=== PATIENT | male | born 1955 | race American Indian/Alaskan Native ===

== ENCOUNTER 2023-12-09 11:05 | Emergency (ER) | payer MEDICAID ==
[~2023-12-09] VITALS: Ht 170.2 cm; Wt 80.4 kg
[2023-12-09 11:08] VITALS: BP 142/75; PULSE 87; RESP 16; TEMP 98.3; O2SAT 99
[2023-12-09] MEDS ORDERED: tetanus & diphtheria toxoid (Td) vaccine 0.5ml IMVAC ONE (11:35)
[2023-12-09] MEDS: TETanus/Pertussis (Acell)/Diphther VAC/PF (Tdap-Adult) 0.5ml syringe IMVAC ONE (11:49)
== END 2023-12-09 11:58 | disposition home or self-care (01) ==
LOC: ER 11:05
DX: T23.221A Burn of second degree of single right finger (nail) except thumb, initial encounter (principal); Z88.0 Allergy status to penicillin; X08.8XXA Exposure to other specified smoke, fire and flames, initial encounter; Y93.89 Activity, other specified; Y92.89 Other specified places as the place of occurrence of the external cause; Y99.8 Other external cause status
CPT/HCPCS: 90471; 90715; 99283

== ENCOUNTER 2023-12-23 10:24 | Emergency (ER) | payer MEDICAID ==
[~2023-12-23] VITALS: Ht 167.6 cm; Wt 80.5 kg
[2023-12-23 10:58] VITALS: BP 134/95; PULSE 104; O2SAT 98
[2023-12-23] MEDS ORDERED: IBUP-1984 PO (11:25)
[2023-12-23] MEDS ORDERED: PRED20TA PO (11:25)
[2023-12-23 11:31] VITALS: RESP 14
[2023-12-23] MEDS: oxyCODONE/APAP 5-325mg tablet PO ONE (11:31)
[2023-12-23 11:44] VITALS: TEMP 97.8
== END 2023-12-23 11:47 | disposition home or self-care (01) ==
LOC: ER 10:26
DX: R07.89 Other chest pain (principal); Z88.0 Allergy status to penicillin; Z79.899 Other long term (current) drug therapy
CPT/HCPCS: 99283

== ENCOUNTER 2024-01-07 10:08 | Emergency (ER) | payer MEDICAID ==
[~2024-01-07] VITALS: Ht 170.2 cm; Wt 78.0 kg
[2024-01-07 10:17] VITALS: TEMP 96.6
[2024-01-07 10:55] LABS: BASOPHILS # (AUTO) 0.1 X10'3 (0-0.2); BASOPHILS % (AUTO) 0.8 % (0-1); EOSINOPHILS # (AUTO) 0.4 X10'3 (0-0.9); HEMATOCRIT 46.8 % (42.0-52.0); HEMOGLOBIN 16.5 g/dl (14.0-17.9); LYMPHOCYTES # (AUTO) 2.1 X10'3 (1.1-4.8); LYMPHOCYTES % (AUTO) 19.4 % (21-51); MEAN CORPUSCULAR HEMOGLOBIN 29.3 PG (27.0-31.0); MEAN CORPUSCULAR HGB CONC 35.2 g/dL (33.0-36.5); MEAN CORPUSCULAR VOLUME 83.4 FL (78-98); MEAN PLATELET VOLUME 7.9 FL (7.4-10.4); MONOCYTES # (AUTO) 0.6 X10'3 (0-0.9); MONOCYTES % (AUTO) 5.6 % (2-12); NEUTROPHILS # (AUTO) 7.6 X10'3 (1.8-7.7); NEUTROPHILS % (AUTO) 70.2 % (42-75); PLATELET COUNT 288 X10'3 (140-440); RED BLOOD COUNT 5.62 X10'6 (4.70-6.10); RED CELL DISTRIBUTION WIDTH 13.8 % (11.5-14.5); WHITE BLOOD COUNT 10.8 X10'3 (4.5-11.0)
[2024-01-07 11:15] LABS: ALANINE AMINOTRANSFERASE 25 U/L (12-78); ALBUMIN 3.3 G/DL (3.4-5.0); ALBUMIN/GLOBULIN RATIO 0.8 (1.1-1.5); ALKALINE PHOSPHATASE 92 IU/L (46-116); ANION GAP 14 (8-16); ASPARTATE AMINO TRANSFERASE 18 U/L (10-37); BILIRUBIN,TOTAL 0.8 MG/DL (0.1-1.0); BLOOD UREA NITROGEN 14 MG/DL (7-18); BUN/CREATININE RATIO 13.9 (10.0-20.0); CALCIUM 8.3 MG/DL (8.5-10.1); CHLORIDE 103 MMOL/L (99-107); CREATININE 1.01 MG/DL (0.60-1.10); GLUCOSE 118 MG/DL (70-104); POTASSIUM 3.9 MMOL/L (3.5-5.1); SODIUM 138 MMOL/L (135-145); TOTAL CARBON DIOXIDE 21.4 MMOL/L (24-32); TOTAL PROTEIN 7.2 G/DL (6.4-8.2); eCRCL 67 ML/MIN; eGFR 74 ML/MIN
[2024-01-07 11:22] LABS: PRO BRAIN NATRIURETIC PEPTIDE 79 PG/ML (0-125)
[2024-01-07 13:27] VITALS: BP 147/73; PULSE 62; RESP 21; O2SAT 100
[2024-01-07] MEDS ORDERED: OMEP40CA21 PO (13:34)
== END 2024-01-07 18:33 | disposition home or self-care (01) ==
LOC: ER 10:09
DX: R07.89 Other chest pain (principal); F17.210 Nicotine dependence, cigarettes, uncomplicated; Z88.0 Allergy status to penicillin; Z79.899 Other long term (current) drug therapy
CPT/HCPCS: 36415; 80053; 83880; 84484; 85025; 93005; 99284

== ENCOUNTER 2024-05-05 07:42 | Emergency (ER) | payer MEDICARE, MEDICAID ==
[~2024-05-05] VITALS: Ht 167.6 cm; Wt 81.5 kg
[2024-05-05 07:43] VITALS: TEMP 98
[2024-05-05] MEDS: naproxen 500mg tablet PO ONE (08:19)
[2024-05-05] MEDS: traMADol 50MG tablet PO ONE (08:19)
[2024-05-05 08:20] VITALS: BP 145/85; PULSE 75; RESP 16; O2SAT 98
[2024-05-05] MEDS ORDERED: NAPR-56 PO (08:20)
== END 2024-05-05 08:22 | disposition home or self-care (01) ==
LOC: ER 07:42
DX: R07.89 Other chest pain (principal); Z88.0 Allergy status to penicillin; Z79.1 Long term (current) use of non-steroidal anti-inflammatories (NSAID)
CPT/HCPCS: 71045; 99283

== ENCOUNTER 2024-06-14 11:50 | Emergency (ER) | payer MEDICARE, MEDICAID ==
[~2024-06-14] VITALS: Ht 170.2 cm; Wt 79.3 kg
[2024-06-14 12:40] VITALS: BP 146/88; PULSE 92; RESP 18; TEMP 98.9; O2SAT 99
== END 2024-06-14 12:41 | disposition home or self-care (01) ==
LOC: ER 11:50
DX: F10.10 Alcohol abuse, uncomplicated (principal); Z88.0 Allergy status to penicillin; Y90.9 Presence of alcohol in blood, level not specified
CPT/HCPCS: 99281

== ENCOUNTER 2024-06-19 15:26 | Emergency (ER) | payer MEDICARE, MEDICAID ==
[~2024-06-19] VITALS: Ht 170.2 cm; Wt 81.8 kg
[2024-06-19] MEDS ORDERED: LIDO700A32 TOP (17:51)
[2024-06-19] MEDS ORDERED: PRED20TA PO (17:51)
[2024-06-19] MEDS: ketorolac trometh 30MG/ML vial 30 MG/ML VIAL IM ONE (18:07)
[2024-06-19] MEDS: cyclobenzaprine 10mg tablet PO ONE (18:07)
[2024-06-19] MEDS: dexamethasone sod phosphate 10mg/ml inj IM STA (18:08)
[2024-06-19 18:20] VITALS: BP 164/77; PULSE 54; RESP 16; TEMP 98.7; O2SAT 99
== END 2024-06-19 18:22 | disposition home or self-care (01) ==
LOC: ER 15:27
DX: M54.2 Cervicalgia (principal); Z88.0 Allergy status to penicillin
CPT/HCPCS: 72040; 96372; 99284; J1100; J1885

== ENCOUNTER 2024-06-29 10:23 | Emergency (ER) | payer MEDICARE, MEDICAID ==
[~2024-06-29] VITALS: Ht 170.2 cm; Wt 74.0 kg
[~2024-06-29 10:23] MED LIST: LIDO700A32 TOP
[2024-06-29 12:15] VITALS: TEMP 97.4
[2024-06-29] MEDS: acetaminophen 325mg tablet PO STA (13:25)
[2024-06-29 13:26] VITALS: BP 151/88; PULSE 68; RESP 16; O2SAT 99
== END 2024-06-29 13:46 | disposition home or self-care (01) ==
LOC: ER 10:23
DX: M54.2 Cervicalgia (principal); M25.572 Pain in left ankle and joints of left foot; Z88.0 Allergy status to penicillin; Z79.899 Other long term (current) drug therapy; W01.0XXA Fall on same level from slipping, tripping and stumbling without subsequent striking against object, initial encounter; Y93.89 Activity, other specified; Y92.89 Other specified places as the place of occurrence of the external cause; Y99.8 Other external cause status
CPT/HCPCS: 72040; 73610; 99284

== ENCOUNTER 2024-10-22 04:03 | Emergency (ER) | payer MEDICARE, MEDICAID ==
[~2024-10-22] VITALS: Ht 167.6 cm; Wt 83.8 kg
[2024-10-22 04:04] VITALS: BP 155/81; PULSE 93; O2SAT 98
[2024-10-22 05:58] VITALS: TEMP 97.9
[2024-10-22 06:02] VITALS: RESP 17
[2024-10-22] MEDS: ketorolac trometh 30MG/ML vial 30 MG/ML VIAL IM ONE (06:02)
== END 2024-10-22 06:05 | disposition home or self-care (01) ==
LOC: ER 04:04
DX: M13.88 Other specified arthritis, other site (principal); G89.29 Other chronic pain; M79.605 Pain in left leg; Z88.0 Allergy status to penicillin; Z79.899 Other long term (current) drug therapy
CPT/HCPCS: 96372; 99283; J1885

== ENCOUNTER 2024-11-02 13:10 | Emergency (ER) | payer MEDICARE, MEDICAID ==
[~2024-11-02] VITALS: Ht 167.6 cm; Wt 64.3 kg
[2024-11-02 15:36] VITALS: BP 143/74; PULSE 74; RESP 16; TEMP 97.9; O2SAT 97
== END 2024-11-02 15:37 | disposition home or self-care (01) ==
LOC: ER 13:11
DX: R06.02 Shortness of breath (principal); Z88.0 Allergy status to penicillin; Z79.899 Other long term (current) drug therapy
CPT/HCPCS: 71045; 99283

== ENCOUNTER 2024-11-30 11:55 | Emergency (ER) | payer MEDICARE, MEDICAID ==
[~2024-11-30] VITALS: Ht 167.6 cm; Wt 80.8 kg
[2024-11-30 11:58] VITALS: BP 147/83; PULSE 88; RESP 18; TEMP 97.5; O2SAT 100
== END 2024-11-30 12:13 | disposition home or self-care (01) ==
LOC: ER 11:56
DX: Z00.8 Encounter for other general examination (principal); F15.10 Other stimulant abuse, uncomplicated; Z88.0 Allergy status to penicillin; Z98.890 Other specified postprocedural states
CPT/HCPCS: 99281

== ENCOUNTER 2024-12-23 09:01 | Emergency (ER) | payer MEDICARE, MEDICAID ==
[~2024-12-23] VITALS: Ht 167.6 cm; Wt 76.7 kg
[2024-12-23 09:01] VITALS: BP 147/84; PULSE 93; RESP 16; O2SAT 99
[2024-12-23 09:39] VITALS: TEMP 98.3
== END 2024-12-23 09:41 | disposition home or self-care (01) ==
LOC: ER 09:01
DX: H04.201 Unspecified epiphora, right side (principal); Z88.0 Allergy status to penicillin
CPT/HCPCS: 99281

== ENCOUNTER 2025-02-20 10:23 | Emergency (ER) | payer MEDICARE, MEDICAID ==
[~2025-02-20] VITALS: Ht 167.6 cm; Wt 56.3 kg
[~2025-02-20 10:23] MED LIST changes: +LIDO-52 TOP; -LIDO700A32 TOP
[2025-02-20 10:26] VITALS: BP 95/66; PULSE 78; RESP 18; O2SAT 99
--- NOTE | 2025-02-20 11:50 | Physician Documentation ---
History of Present Illness ~ Chief Complaint: Penile Pain Stated Complaint: PENILE PAIN Time Seen by MD: 10:43 Primary Medical Doctor: NO PMD HPI Patient presents with a foreign metal ring which was stuck on his shaft of his penis..pt states that it is a "colvin ring". said his girlfriend "made him do it".ring has been stuck on his penis for one day Medication Reconciliation Allergies: Coded Allergies: Penicillins (Verified Allergy, Unknown, 11/30/24) Scheduled Lidocaine (Lidoderm), 1 PATCH TOP DAILY Past Medical History Past Medical History: No Pertinent History, Arthritis, Extremity Fracture Past Surgical History: orthopedic surgeries Drug Use: none Lives In: Home, Other Review of Systems All Other Systems at this time: Reviewed and Negative ROS As stated above in the HPI, otherwise all systems are reviewed and negative. Physical Exam Vital Signs: Temperature: 98.2, Source: Temporal, Heart Rate: 78, Respiratory Rate: 18, BP: 95/66, Pulse Oximetry: 99, Weight: 56.300 Physical Exam General: Alert, no apparent distress. HEENT: PERRL, EOMI, no injection, moist mucous membranes. Genitourinary: Caring partially strangulating the penile shaft with gross swelling distal to the ring Psychiatric: Normal mood and affect. Skin: Normal color, warm and dry. No edema, no ecchymosis. Procedures Additional Procedures Additional Procedure Note Utilizing double tongue depressor lubrication and a Dremel tool. Progress Results/Orders Results/Orders Vital Signs 02/20/25 02/20/25 10:26 12:13 Temp 98.2 98.2 Pulse 78 Resp 18 B/P (MAP) 95/66 Pulse Ox 99 Medical Decision Making Findings Utilizing lubrication tongue depressor and a Dremel tool, was able to easily rem ove the colvin ring that was at the base of the patient's from the penis. improved symptoms and meets criteria for safe discharge Genital Diff Dx:Considerations: Include: Abscess, Balanitis, Balanoposthitis, Cellulitis, Epididymitis, Entrapment injury, Glynn's gangrene, Foreign body, Facture penis, Hydrocele, Inguinal hernia, Post-op Complication, Paraphimosis, Prostatitis, Priapism, Syphilis, Testicular torsion, Torsion-epididymis, Torsion-appendiceal, Urinary retention, Urethritis, Urethritis-chlamydial, Urethritis-gonococcal, UTI, Other Departure Disposition: HOME / SELF CARE / HOMELESS Impression: Primary Impression: Penile FB Condition: Stable Additional Instructions: please stop Placing foreign bodies on your penis causing strangulation. Referrals: NO PRIMARY CARE PROVIDER (PCP) Education Educated: Patient Educated regarding: diagnosis Signature Scribe Signature: f Attestation: The note accurately reflects work and decisions made by me.Parth Smith NP 02/20/25 18:04 PARTH TREVIZO NP Feb 20, 2025 11:50
[2025-02-20 12:13] VITALS: TEMP 98.2
== END 2025-02-20 12:16 | disposition home or self-care (01) ==
LOC: ER 10:24
DX: T19.4XXA Foreign body in penis, initial encounter (principal); Z88.0 Allergy status to penicillin; W44.9XXA Unspecified foreign body entering into or through a natural orifice, initial encounter; Y93.89 Activity, other specified; Y92.89 Other specified places as the place of occurrence of the external cause; Y99.8 Other external cause status
CPT/HCPCS: 99284

== ENCOUNTER 2025-03-09 03:14 | Emergency (ER) | payer MEDICARE, MEDICAID ==
[~2025-03-09] VITALS: Ht 167.6 cm; Wt 72.8 kg
[2025-03-09 03:23] VITALS: BP 141/84; PULSE 72; RESP 16; TEMP 97.1; O2SAT 98
[2025-03-09] MEDS ORDERED: CEFU250T95 PO (03:52)
--- NOTE | 2025-03-09 03:52 | Physician Documentation ---
History of Present Illness ~ Chief Complaint: Ear Pain Stated Complaint: EAR PAIN Time Seen by MD: 03:37 Primary Medical Doctor: NO PMD HPI Patient presents to the emergency room with one day history of left ear pain. He states he went swimming last week and feels that he may have gone an earache. He also has some cough cold and congestion symptoms. No fevers Medication Reconciliation Allergies: Coded Allergies: Penicillins (Verified Allergy, Unknown, 03/09/25) Scheduled Lidocaine (Lidoderm), 1 PATCH TOP DAILY Past Medical History Past Medical History: No Pertinent History, Arthritis, Extremity Fracture Past Surgical History: orthopedic surgeries Drug Use: none Lives In: Home, Other Review of Systems ROS All review of systems negative except as per HPI Physical Exam Vital Signs: Temperature: 97.1, Source: Temporal, Heart Rate: 72, Respiratory Rate: 16, BP: 141/84, Pulse Oximetry: 98, Weight: 72.800 Oxygen Flow Rate: 0 Physical Exam General: Patient is awake, alert, oriented x4 in no acute distress and well appearing.~ Head: Normocephalic and atraumatic. Eyes: Conjunctival normal. EOMI. PERRL. ENT: Mucous membranes moist. Right tympanic brain normal, left tympanic membrane ruptured. No tenderness to palpation over mastoid processes Neck: Supple, trachea is midline. Chest: Clear to auscultation bilaterally without rales, rhonchi, or wheezes. There is no accessory muscle use or retractions. Cardiac: RRR without murmurs, gallops, or rubs. Progress Results/Orders Results/Orders Vital Signs 03/09/25 03:23 Temp 97.1 Pulse 72 Resp 16 B/P (MAP) 141/84 Pulse Ox 98 O2 Flow Rate 0 Medical Decision Making Findings Patient presents to the emergency room with left ear pain as per HPI. Differentials include but are not limited to otitis externa, otitis media, mastoiditis, foreign body. Physical exam is consistent with rupture of his membrane. The need to follow up with his doctor to ensure closure of his tympanic membrane discussed as well as the need to keep his head not submerged in water or get water in his ear. We will place him on antibiotic that should cover his cough cold congestion symptoms as well as his likely ear infection. Departure Disposition: HOME / SELF CARE / HOMELESS Impression: Primary Impression: Ruptured tympanic membrane Condition: Stable Discharge Instructions: Earache, Adult Additional Instructions: Your ear drum has been ruptured. Do not get water in your ear until you a followed up with your doctor to ensure that has healed correctly. We will begin antibiotics that will cover an infection of your ear that has well as sinuses Referrals: NO PRIMARY CARE PROVIDER (PCP) Prescriptions Cefuroxime Axetil (Cefuroxime) 250 Mg Tablet 1 TAB PO Q12H for 10 Days, #20 TAB Prov: RUSS JEONG MD 03/09/25 Education Educated: Patient Educated regarding: diagnosis, treatment, need for follow up Signature Scribe Signature: No scribe Attestation: The note accurately reflects work and decisions made by me.Russ Jeong MD 03/09/25 03:53 RUSS JEONG MD Mar 09, 2025 03:51
[2025-03-09] MEDS ORDERED: cefuroxime axetil 250mg tablet PO ONE (03:55)
[2025-03-09] MEDS ORDERED: ibuprofen tablet 400 MG TABLET PO ONE (03:55)
== END 2025-03-09 04:43 | disposition home or self-care (01) ==
LOC: ER 03:15
DX: H72.92 Unspecified perforation of tympanic membrane, left ear (principal); Z88.0 Allergy status to penicillin; Z79.899 Other long term (current) drug therapy
CPT/HCPCS: 99283

== ENCOUNTER 2025-03-30 08:28 | Emergency (ER) | payer MEDICARE, MEDICAID ==
[~2025-03-30] VITALS: Ht 167.6 cm; Wt 68.1 kg
[~2025-03-30 08:28] MED LIST changes: +ASPI81TA52 PO; +LEVO750T68 PO; +TAMS-55 PO
[2025-03-30] MEDS: bacitracin 15gm ointment TP ONE (09:14)
[2025-03-30] MEDS ORDERED: IBUP-860 PO (09:39)
--- NOTE | 2025-03-30 09:40 | Physician Documentation ---
History of Present Illness ~ Chief Complaint: Wound Stated Complaint: L LEG PAIN Time Seen by MD: 08:59 Primary Medical Doctor: NO PMD Source: patient Mode of Arrival: Ambulatory Exam Limitations: no limitations HPI 42-year-old male with wound to left reyez which he states he was treated for and is currently on antibiotics but does not have bandages and states that he is concerned it is getting infected. Patient is homeless. Fevers. Tetanus within 5 years?: Yes (2023) Medication Reconciliation Allergies: Coded Allergies: Penicillins (Verified Allergy, Unknown, 03/09/25) Scheduled Aspirin (Aspirin EC), 1 TAB PO DAILY Levofloxacin (Levofloxacin), 750 MG PO DAILY Lidocaine (Lidoderm), 1 PATCH TOP DAILY Tamsulosin Hcl* (Flomax*), 1 CAP PO DAILY, (Reported) Past Medical History Past Medical History: No Pertinent History, Arthritis, Extremity Fracture Past Surgical History: orthopedic surgeries Patient History: Patient reports no known family medical history. Drug Use: none Lives In: Home, Other Review of Systems All Other Systems at this time: Reviewed and Negative Integumentary: Reports: see HPI Physical Exam Vital Signs: RN Vital Signs have been reviewed: Yes, Temperature: 98.0, Source: Oral, Heart Rate: 68, Respiratory Rate: 16, BP: 125/63, Pulse Oximetry: 98, Weight: 68.100 Oxygen Flow Rate: 0 Physical Exam General: Alert, no apparent distress. HEENT: PERRL, EOMI, no injection, moist mucous membranes. Neck: Full range of motion. Respiratory: Lungs clear, no respiratory distress. Chest: No accessory muscle use. Cardiovascular: Regular rate and rhythm, no murmurs. Extremities: Normal range of motion, no deformity. 2 cm x 1-1/2 cm scabbed lesion to the left reyez some induration with out fluctuant warmth Neurologic: Oriented x4. Psychiatric: Normal mood and affect. Skin: Normal color, warm and dry. No edema, no ecchymosis. Progress Results/Orders Results/Orders Completed Orders - BEA SNOW NP Bacitracin Ointment (Bacitracin Ointment (03/30/25 09:05) Vital Signs 03/30/25 08:28 Temp 98.0 Pulse 68 Resp 16 B/P (MAP) 125/63 Pulse Ox 98 O2 Flow Rate 0 Medical Decision Making Findings And stages of healing although patient is homeless with lack of resources to care clean and cover the wound provided wound care patient continues to take his antibiotics no obvious increase infection. Patient to follow up with primary [facility] as needed Departure Time of Disposition: 09:37 Disposition: 01 HOME / SELF CARE / HOMELESS Impression: Primary Impression: Leg wound, left Condition: Stable Discharge Instructions: How to Change Your Wound Dressing Additional Instructions: Continue to take your antibiotic try to keep wound clean and dry change the bandage daily. Follow up with urgent care primary care [facility] Referrals: NO PRIMARY CARE PROVIDER (PCP) Prescriptions Ibuprofen (Ibu) 400 Mg Tablet 1 TAB PO Q4HPRN PRN for pain for 5 Days, #30 TAB 0 Refills NEEDED FOR PAIN Prov: BEA SNOW NP 03/30/25 Education Educated: Patient Educated regarding: diagnosis, treatment, need for follow up Signature Scribe Signature: No scribe Attestation: The note accurately reflects work and decisions made by me.Bea LYNCH 03/30/25 09:39 BEA SNOW NP Mar 30, 2025 09:40
[2025-03-30 09:49] VITALS: BP 122/64; PULSE 78; RESP 16; TEMP 98; O2SAT 99
[2025-04-04] MEDS ORDERED: NO HOME MEDS (13:25)
== END 2025-03-30 09:51 | disposition home or self-care (01) ==
LOC: ER 08:28
DX: S40.912A Unspecified superficial injury of left shoulder, initial encounter (principal); M75.82 Other shoulder lesions, left shoulder; Z88.0 Allergy status to penicillin; Z59.00 Homelessness unspecified; Z79.899 Other long term (current) drug therapy; X58.XXXA Exposure to other specified factors, initial encounter; Y93.89 Activity, other specified; Y92.89 Other specified places as the place of occurrence of the external cause; Y99.8 Other external cause status
CPT/HCPCS: 99283

== ENCOUNTER 2025-04-03 11:38 | Emergency (ER) | payer MEDICARE, MEDICAID ==
[~2025-04-03] VITALS: Ht 167.6 cm; Wt 68.2 kg
[~2025-04-03 11:38] MED LIST changes: +IBUP-860 PO; -LEVO750T68 PO
[2025-04-03 11:42] VITALS: BP 136/72; PULSE 78; RESP 18; O2SAT 98
[2025-04-03] MEDS ORDERED: CEPH-585 PO (12:35)
[2025-04-03] MEDS ORDERED: SULF1TAB45 PO (12:35)
--- NOTE | 2025-04-03 12:35 | Physician Documentation ---
History of Present Illness ~ Chief Complaint: Wound Stated Complaint: L LEG PAIN Time Seen by MD: 12:01 OK to notify your PCP?: No Primary Medical Doctor: NO PMD HPI 69-year-old male presents with a complaint of a poor healing wound on his left lower extremity. States she just needs something to clean the wound with. Has not any fevers nausea vomiting f. does report some trace drainage from the wound Tetanus within 5 years?: Yes (2023) Medication Reconciliation Allergies: Coded Allergies: Penicillins (Verified Allergy, Unknown, 03/09/25) Scheduled Aspirin (Aspirin EC), 1 TAB PO DAILY Cephalexin*Monohydrate* (Keflex*), 1 CAP PO QID Lidocaine (Lidoderm), 1 PATCH TOP DAILY Sulfamethoxazole/Trimethoprim (Septra Ds Tab), 1 TAB PO Q12H Tamsulosin Hcl* (Flomax*), 1 CAP PO DAILY, (Reported) Scheduled PRN Ibuprofen (Ibu), 1 TAB PO Q4HPRN PRN for pain Discontinued Medications Levofloxacin (Levofloxacin), 750 MG PO DAILY Discontinued Reason: Auto Discontinued Past Medical History Past Medical History: No Pertinent History, Arthritis, Extremity Fracture Past Surgical History: orthopedic surgeries Patient History: Patient reports no known family medical history. Smoking Status: Never smoker Drug Use: none Lives In: Home, Other Review of Systems All Other Systems at this time: Reviewed and Negative ROS As stated above in the HPI, otherwise all systems are reviewed and negative. Physical Exam Vital Signs: Temperature: 97.6, Source: Temporal, Heart Rate: 78, Respiratory Rate: 18, BP: 136/72, Pulse Oximetry: 98, Weight: 68.200 Physical Exam General: Alert, no apparent distress. Extremities: Normal range of motion, no deformity. 2 x 5 cm healing wound left lower extremity trace drainage, mild surrounding erythema Psychiatric: Normal mood and affect. Skin: Normal color, warm and dry. No edema, no ecchymosis. Progress Results/Orders Results/Orders Completed Orders - PARTH TREVIZO NP Sulfamethox/Trimetho. Ds Tab (Septra Ds (04/03/25 12:25) Cephalexin Capsule (Keflex Capsule) (04/03/25 12:25) Medications Received in ER Medications (Trade) Dose Ordered Sig/Dejon Route PRN Reason Start Time Stop Time Status Last Admin Dose Admin (Septra DS tab) 1 tab ONCE ONCE PO 7/22/25 12:25 04/03/25 12:26 DC 04/03/25 12:39 1 TAB (Keflex capsule) 500 mg ONCE ONCE PO 04/03/25 12:25 04/03/25 12:26 DC 04/03/25 12:39 500 MG Vital Signs 04/03/25 11:42 Temp 97.6 Pulse 78 Resp 18 B/P (MAP) 136/72 Pulse Ox 98 Medical Decision Making Findings Treating with outpatient antibiotics and provided patient wound care in the ED. patient hemodynamically stable Differential Dx:Considerations: Include: Abscess, Cellulitis, Dressing change, Healing wound, Other Departure Disposition: HOME / SELF CARE / HOMELESS Impression: Primary Impression: Wound cellulitis Condition: Stable Discharge Instructions: Skin Abscess Referrals: NO PRIMARY CARE PROVIDER (PCP) Prescriptions Cephalexin*Monohydrate* (Keflex*) 500 Mg Capsule 1 CAP PO QID, #40 CAP Prov: PARTH TREVIZO VALUATION MANAGER 04/03/25 Sulfamethoxazole/Trimethoprim (Septra Ds Tab) 800 Mg/160 Mg Tablet 1 TAB PO Q12H for 10 Days, #20 TAB Prov: PARTH TREVIZO VALUATION MANAGER 04/03/25 Education Educated: Patient Educated regarding: diagnosis Signature Scribe Signature: y Attestation: Scribed for Parth Trevizo Executive Compensation Analyst by Parth Smith NP . 04/03/25 12:41 PARTH TREVIZO NP Apr 03, 2025 12:35
[2025-04-03] MEDS: sulfamethoxazole/trimethoprim DS (800/160mg) tablet PO ONE (12:39)
[2025-04-03 12:58] VITALS: TEMP 97.6
[2025-04-04] MEDS ORDERED: NO HOME MEDS (13:25)
== END 2025-04-03 12:59 | disposition home or self-care (01) ==
LOC: ER 11:39
DX: L03.116 Cellulitis of left lower limb (principal); Z88.0 Allergy status to penicillin; Z79.82 Long term (current) use of aspirin
CPT/HCPCS: 99283

== ENCOUNTER 2025-04-08 06:36 | Emergency (ER) | payer MEDICARE, MEDICAID ==
[~2025-04-08] VITALS: Ht 167.6 cm; Wt 68.3 kg
[~2025-04-08 06:36] MED LIST changes: +CEPH-585 PO; +FOLI1TAB27 PO; +LACT1CAP26 PO; +MULT-25 PO; +NO HOME MEDS; +THIA100T70 PO
[2025-04-08 06:41] VITALS: TEMP 97
--- NOTE | 2025-04-08 07:47 | Physician Documentation ---
History of Present Illness ~ Chief Complaint: Wound Re-Check Stated Complaint: WOUND CARE Time Seen by MD: 07:44 Primary Medical Doctor: NO PMD Source: patient Mode of Arrival: Ambulatory Exam Limitations: no limitations Tetanus within 5 years?: Yes (2023) Medication Reconciliation Allergies: Coded Allergies: Penicillins (Verified Allergy, Unknown, 04/08/25) Scheduled Aspirin (Aspirin EC), 1 TAB PO DAILY Cephalexin*Monohydrate* (Keflex*), 1 CAP PO QID Folic Acid* (Folic Acid*), 1 MG PO DAILY Lactobacillus Rhamnosus (Culturelle), 1 CAP PO DAILY Lidocaine (Lidoderm), 1 PATCH TOP DAILY Multivitamin with Folic Acid (Thera Tablet), 1 EACH PO Q24H Tamsulosin Hcl* (Flomax*), 1 CAP PO DAILY, (Reported) Thiamine Mononitrate (Vitamin B-1), 1 TAB PO DAILY Scheduled PRN Ibuprofen (Ibu), 1 TAB PO Q4HPRN PRN for pain Miscellaneous Medications Home Med List (No Home Medications), (Reported) Discontinued Medications Sulfamethoxazole/Trimethoprim (Septra Ds Tab), 1 TAB PO Q12H Past Medical History Past Medical History: No Pertinent History, Arthritis, Extremity Fracture Past Surgical History: orthopedic surgeries Patient History: Patient reports no known family medical history. Smoking Status: Former smoker Drug Use: none Lives In: Other Physical Exam Vital Signs: Temperature: 97.0, Source: Temporal, Heart Rate: 68, Respiratory Rate: 16, BP: 128/77, Pulse Oximetry: 99, Weight: 68.300 Oxygen Flow Rate: 0 Progress Results/Orders Results/Orders Vital Signs 04/08/25 06:41 Temp 97.0 Pulse 68 Resp 16 B/P (MAP) 128/77 Pulse Ox 99 O2 Flow Rate 0 Departure Time of Disposition: 07:46 Disposition: 01 HOME / SELF CARE / HOMELESS Impression: Primary Impression: Healing wound left leg Condition: Stable Discharge Instructions: Wound Care, Adult Additional Instructions: KEEP THE WOUND CLEAN DRY AND COVERED Education Educated: Patient Educated regarding: diagnosis, treatment JASS VINES MD Apr 08, 2025 07:47
[2025-04-08 07:58] VITALS: BP 129/68; PULSE 57; RESP 18; O2SAT 100
== END 2025-04-08 08:00 | disposition home or self-care (01) ==
LOC: ER 06:37
DX: S80.922D Unspecified superficial injury of left lower leg, subsequent encounter (principal); Z88.0 Allergy status to penicillin; Z79.82 Long term (current) use of aspirin; Z79.899 Other long term (current) drug therapy; X58.XXXD Exposure to other specified factors, subsequent encounter
CPT/HCPCS: 99281

== ENCOUNTER 2025-04-08 12:47 | Emergency (ER) | payer MEDICARE, MEDICAID ==
[~2025-04-08] VITALS: Ht 167.6 cm; Wt 68.7 kg
[2025-04-08 12:58] VITALS: BP 135/87; PULSE 80; RESP 18; TEMP 98.7; O2SAT 96
--- NOTE | 2025-04-08 13:04 | Physician Documentation ---
History of Present Illness ~ Chief Complaint: Medical Clearance Stated Complaint: "I NEED A CLEARANCE TO GET INTO REHAB" Time Seen by MD: 13:02 Primary Medical Doctor: NO PMD HPI 69 yr old male presents for clearance to enter rehab for "crack cocaine" use. He plans to enter [place]. He reports feeling well and denies concerns. Tetanus within 5 years?: Yes (2023) Medication Reconciliation Allergies: Coded Allergies: Penicillins (Verified Allergy, Unknown, 04/08/25) Scheduled Aspirin (Aspirin EC), 1 TAB PO DAILY Cephalexin*Monohydrate* (Keflex*), 1 CAP PO QID Folic Acid* (Folic Acid*), 1 MG PO DAILY Lactobacillus Rhamnosus (Culturelle), 1 CAP PO DAILY Lidocaine (Lidoderm), 1 PATCH TOP DAILY Multivitamin with Folic Acid (Thera Tablet), 1 EACH PO Q24H Tamsulosin Hcl* (Flomax*), 1 CAP PO DAILY, (Reported) Thiamine Mononitrate (Vitamin B-1), 1 TAB PO DAILY Scheduled PRN Ibuprofen (Ibu), 1 TAB PO Q4HPRN PRN for pain Miscellaneous Medications Home Med List (No Home Medications), (Reported) Discontinued Medications Sulfamethoxazole/Trimethoprim (Septra Ds Tab), 1 TAB PO Q12H Past Medical History Past Medical History: No Pertinent History, Arthritis, Extremity Fracture Past Surgical History: orthopedic surgeries Patient History: Patient reports no known family medical history. Drug Use: none Lives In: Other Review of Systems ROS As stated above in the HPI, otherwise all systems are reviewed and negative. Physical Exam Vital Signs: Temperature: 98.7, Heart Rate: 80, Respiratory Rate: 18, BP: 135/87, Pulse Oximetry: 96, Weight: 68.650 Oxygen Flow Rate: 0 Physical Exam General: Alert, no apparent distress. HEENT: PERRL, EOMI, no injection, moist mucous membranes. Neck: Full range of motion. Respiratory: Lungs clear, no respiratory distress. Chest: No accessory muscle use. Cardiovascular: Regular rate and rhythm, no murmurs. Gastrointestinal: Soft, nontender, nondistended. Bowels sounds present. Extremities: Normal range of motion, no deformity. Neurologic: Oriented x4. Psychiatric: Normal mood and affect. Skin: Normal color, warm and dry. No edema, no ecchymosis. Progress Results/Orders Results/Orders Vital Signs 04/08/25 12:58 Temp 98.7 Pulse 80 Resp 18 B/P (MAP) 135/87 Pulse Ox 96 O2 Flow Rate 0 Medical Decision Making Differential Diagnosis This patient is well-appearing and denies concerns for illness. He is medically cleared. Departure Time of Disposition: 13:04 Disposition: 01 HOME / SELF CARE / HOMELESS Impression: Primary Impression: General medical exam Condition: Stable Discharge Instructions: Medical Screening Exam Additional Instructions: Medically cleared to enter rehab. Referrals: NO PRIMARY CARE PROVIDER (PCP) Education Educated: Patient Educated regarding: diagnosis, treatment, prognosis, need for follow up Signature Scribe Signature: x Attestation: The note accurately reflects work and decisions made by me.Neris Smith NP 04/08/25 13:03 NERIS VIVAR NP Apr 08, 2025 13:04
== END 2025-04-08 13:10 | disposition home or self-care (01) ==
LOC: ER 12:48
DX: Z00.00 Encounter for general adult medical examination without abnormal findings (principal); Z88.0 Allergy status to penicillin; Z79.82 Long term (current) use of aspirin; Z79.899 Other long term (current) drug therapy
CPT/HCPCS: 99282

== ENCOUNTER 2025-04-15 11:48 | Emergency (ER) | payer MEDICARE, MEDICAID ==
[~2025-04-15] VITALS: Ht 172.7 cm; Wt 71.9 kg
[2025-04-15 12:16] VITALS: BP 133/69; PULSE 67; RESP 16; TEMP 98.2; O2SAT 99
--- NOTE | 2025-04-15 17:46 | Physician Documentation ---
History of Present Illness ~ Chief Complaint: Leg Pain Stated Complaint: LT LEG PAIN Time Seen by MD: 16:59 OK to notify your PCP?: Yes Primary Medical Doctor: NO PMD Source: patient Mode of Arrival: POV Exam Limitations: no limitations HPI 69-year-old male presents via EMS reporting that he is tired of walking. He has a healing wound to his left reyez but he states that the pain is in the bone and he is having a flare-up of arthritis in his reyez. He tried taking ibuprofen with no relief. He requesting to take methadone. He states that he does have narcotic pain medication but because he using rehab he is unable to take the prescribed medication. Tetanus witin 5 years: Yes (2023) Medication Reconciliation Allergies: Coded Allergies: Penicillins (Verified Allergy, Unknown, 04/08/25) Scheduled Aspirin (Aspirin EC), 1 TAB PO DAILY Cephalexin*Monohydrate* (Keflex*), 1 CAP PO QID Folic Acid* (Folic Acid*), 1 MG PO DAILY Lactobacillus Rhamnosus (Culturelle), 1 CAP PO DAILY Lidocaine (Lidoderm), 1 PATCH TOP DAILY Multivitamin with Folic Acid (Thera Tablet), 1 EACH PO Q24H Tamsulosin Hcl* (Flomax*), 1 CAP PO DAILY, (Reported) Thiamine Mononitrate (Vitamin B-1), 1 TAB PO DAILY Scheduled PRN Ibuprofen (Ibu), 1 TAB PO Q4HPRN PRN for pain Miscellaneous Medications Home Med List (No Home Medications), (Reported) Past Medical History Past Medical History: No Pertinent History, Arthritis, Extremity Fracture Past Surgical History: orthopedic surgeries Patient History: Patient reports no known family medical history. Drug Use: none Lives In: Other Review of Systems All Other Systems at this time: Reviewed and Negative Physical Exam Vital Signs: RN Vital Signs have been reviewed: Yes, Temperature: 98.2, Source: Temporal, Heart Rate: 67, Respiratory Rate: 16, BP: 133/69, Pulse Oximetry: 99, Weight: 71.900 Oxygen Flow Rate: 0 Pulse Oximetry Reflects: adequate oxygenation Physical Exam General: Alert, no distress. HEENT: No injection, moist mucous membranes. Neck: Full range of motion. Respiratory: No respiratory distress, equal chest rise and fall. Chest: No accessory muscle use. Cardiovascular: Regular rate and rhythm. Gastrointestinal: Nondistended. Extremities: Normal range of motion, no deformity. Neurologic: Oriented x4. Psychiatric: Normal mood and affect. Skin: Normal color, warm and dry. Healing wound to left reyez, no signs or symptoms of infection around the wound. Progress Results/Orders Reviewed/noted all lab results: Yes Results/Orders Vital Signs 04/15/25 12:16 Temp 98.2 Pulse 67 Resp 16 B/P (MAP) 133/69 Pulse Ox 99 O2 Flow Rate 0 Medical Decision Making Additional info obtained from: old records Findings 69-year-old male who presents via EMS requesting methadone prescription. He states that he is having some arthritis pain in his left reyez not related to the healing wound that he has been seen here for previously. He states that he has a stronger pain medication prescribed but because he is in rehab he is unable to take it but would be able to take methadone. I explained to the patient that he would have to go to the methadone clinic for his medication and that we can not prescribe that from the emergency department. He is ambulatory in his physical exam is unremarkable otherwise. He is requesting to be discharged. General Diff Dx:Considerations: Include: Abrasion, Hematoma, Laceration, Neurovascular injury, Open fracture, Ulcer Additional Comment Cellulitis, sepsis Departure Disposition: 01 HOME / SELF CARE / HOMELESS Impression: Primary Impression: Chronic leg pain Condition: Stable Discharge Instructions: R[facility] Therapy for Routine Care of Injuries, [id number] Additional Instructions: As discussed, we are unable to prescribe methadone from the emergency department and you need to go to the local methadone clinic in [facility]. Referrals: NO PRIMARY CARE PROVIDER (PCP) Education Educated: Patient Educated regarding: diagnosis, treatment, prognosis, need for follow up Additional Comment Medical Screen Exam This patient recieved a medical screening examination. After reviewing the individual's medical complaints with presenting symptoms and performing an appropriate physical examination, it was determined that no immediate life- threatening emergency medical condition is present. This individual is also not a women having contractions. Signature Scribe Signature: . Attestation: Scribed for [place] Record Maker by Treasure Smith NP . 04/15/25 17:48 Parts of this note were created using [employer] voice recognition software program. While efforts were made to correct any mistakes made by this voice recognition software program, nonsensical phrases may remain in this note. In addition, there may be errors and syntax, grammar, content and spelling. [facility] Apr 15, 2025 17:46
== END 2025-04-15 17:49 | disposition home or self-care (01) ==
LOC: ER 11:49
DX: G89.29 Other chronic pain (principal); M79.605 Pain in left leg; Z88.0 Allergy status to penicillin; Z79.82 Long term (current) use of aspirin; Z79.899 Other long term (current) drug therapy
CPT/HCPCS: 99283

== ENCOUNTER 2025-04-22 14:40 | Emergency (ER) | payer MEDICARE, MEDICAID ==
[~2025-04-22] VITALS: Ht 167.6 cm; Wt 81.8 kg
[~2025-04-22 14:40] MED LIST changes: -ASPI81TA52 PO
[2025-04-22 14:41] VITALS: BP 136/78; PULSE 88; RESP 16; TEMP 98.5; O2SAT 99
[2025-04-22] MEDS ORDERED: CEFU500T66 PO (15:02)
--- NOTE | 2025-04-22 15:02 | Physician Documentation ---
History of Present Illness ~ Chief Complaint: Ear Pain Stated Complaint: EAR PAIN Time Seen by MD: 14:51 OK to notify your PCP?: Yes Primary Medical Doctor: NO PMD Source: patient Mode of Arrival: POV Exam Limitations: no limitations HPI 69-year-old male with left ear pain and muffled hearing for the past 3 days. He denies any discharge from ear and denies any fevers. He has not taken any medications prior to arriving for symptoms. Medication Reconciliation Allergies: Coded Allergies: Penicillins (Verified Allergy, Unknown, itching, 04/22/25) Scheduled Cefuroxime Axetil (Cefuroxime), 1 TAB PO Q12H Cephalexin*Monohydrate* (Keflex*), 1 CAP PO QID Folic Acid* (Folic Acid*), 1 MG PO DAILY Lactobacillus Rhamnosus (Culturelle), 1 CAP PO DAILY Lidocaine (Lidoderm), 1 PATCH TOP DAILY Multivitamin with Folic Acid (Thera Tablet), 1 EACH PO Q24H Tamsulosin Hcl* (Flomax*), 1 CAP PO DAILY, (Reported) Thiamine Mononitrate (Vitamin B-1), 1 TAB PO DAILY Scheduled PRN Ibuprofen (Ibu), 1 TAB PO Q4HPRN PRN for pain Miscellaneous Medications Home Med List (No Home Medications), (Reported) Discontinued Medications Aspirin (Aspirin EC), 1 TAB PO DAILY Discontinued Reason: Auto Discontinued Past Medical History Past Medical History: No Pertinent History, Arthritis, Extremity Fracture Past Surgical History: orthopedic surgeries Patient History: Patient reports no known family medical history. Drug Use: none Lives In: Other Review of Systems All Other Systems at this time: Reviewed and Negative Physical Exam Vital Signs: RN Vital Signs have been reviewed: Yes, Temperature: 98.5, Source: Temporal, Heart Rate: 88, Respiratory Rate: 16, BP: 136/78, Pulse Oximetry: 99, Weight: 81.820 Oxygen Flow Rate: 0 Pulse Oximetry Reflects: adequate oxygenation Physical Exam General: Alert, no distress. HEENT: No injection, moist mucous membranes. Right TM and ear canal normal. Left TM shows erythema and bulging. Neck: Full range of motion. Respiratory: No respiratory distress, equal chest rise and fall. Chest: No accessory muscle use. Cardiovascular: Regular rate and rhythm. Gastrointestinal: Nondistended. Extremities: Normal range of motion, no deformity. Neurologic: Oriented x4. Psychiatric: Normal mood and affect. Skin: Normal color, warm and dry. Progress Results/Orders Results/Orders Completed Orders - TREAS[facility] Cefuroxime Axetil Tablet (Ceftin) (04/22/25 15:00) Vital Signs 04/22/25 14:41 Temp 98.5 Pulse 88 Resp 16 B/P (MAP) 136/78 Pulse Ox 99 O2 Flow Rate 0 Medical Decision Making Additional info obtained from: old records Findings 69-year-old male with left ear pain for the past 3 days. He is afebrile and stable. On physical exam his left tympanic membrane is bulging and there is erythema surrounding. I prescribed cefuroxime with the 1st dose given here in the rest sent to his pharmacy. He was educated on his return instructions and follow up instructions. Ear Diff. Dx: Considerations: Include: Foreign body, Otitis externa, Barotrauma, Perforation, Tympanic Membrane Injury Departure Disposition: HOME / SELF CARE / HOMELESS Impression: Primary Impression: Otitis media of left ear Condition: Stable Discharge Instructions: Otitis Media, Adult, [id number] Additional Instructions: Follow up with [facility] or your primary care provider within the next week and return back here for any new or worsening symptoms. You can use Tylenol or ibuprofen for pain relief. Referrals: NO PRIMARY CARE PROVIDER (PCP) Prescriptions Cefuroxime Axetil (Cefuroxime) 500 Mg Tablet 1 TAB PO Q12H for 7 Days, #14 TAB 0 Refills Prov: TRE[facility] 04/22/25 Education Educated: Patient Educated regarding: diagnosis, treatment, prognosis, need for follow up Additional Comment Medical Screen Exam This patient recieved a medical screening examination. After reviewing the individual's medical complaints with presenting symptoms and performing an appropriate physical examination, it was determined that no immediate life- threatening emergency medical condition is present. This individual is also not a women having contractions. Signature Scribe Signature: . Attestation: Scribed for [facility] [place] by Treasure Smith NP . 04/22/25 15:12 Parts of this note were created using [employer] voice recognition software program. While efforts were made to correct any mistakes made by this voice recognition software program, nonsensical phrases may remain in this note. In addition, there may be errors and syntax, grammar, content and spelling. T[facility] Apr 22, 2025 15:02
[2025-04-23] MEDS ORDERED: CEPH-585 PO (22:33)
[2025-04-23] MEDS ORDERED: POTA8TAB69 PO (22:33)
[2025-04-23] MEDS ORDERED: FURO40TA4 PO (22:33)
== END 2025-04-22 15:38 | disposition home or self-care (01) ==
LOC: ER 14:41
DX: H66.92 Otitis media, unspecified, left ear (principal); Z88.0 Allergy status to penicillin; Z79.899 Other long term (current) drug therapy
CPT/HCPCS: 99283

== ENCOUNTER 2025-04-23 18:12 | Emergency (ER) | payer MEDICARE, MEDICAID ==
[~2025-04-23] VITALS: Ht 167.6 cm; Wt 70.2 kg
[~2025-04-23 18:12] MED LIST changes: +CEFU500T66 PO
[2025-04-23 18:28] VITALS: TEMP 98.7
[2025-04-23 19:46] LABS: CREATININE 1.04 MG/DL (0.60-1.10); ETHANOL < 10 MG/DL (<10); TOTAL CARBON DIOXIDE 26.9 MMOL/L (24-32); eCRCL 61 ML/MIN; eGFR 71 ML/MIN
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
[2025-04-23 22:03] VITALS: BP 136/68; PULSE 74; RESP 16; O2SAT 100
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
[2025-04-23] MEDS ORDERED: FURO40TA4 PO (22:33)
[2025-04-23] MEDS ORDERED: POTA8TAB69 PO (22:33)
[2025-04-23] MEDS ORDERED: CEPH-585 PO (22:33)
== END 2025-04-23 23:27 | disposition home or self-care (01) ==
LOC: ER 18:13
DX: S02.2XXA Fracture of nasal bones, initial encounter for closed fracture (principal); L03.116 Cellulitis of left lower limb; Z88.0 Allergy status to penicillin; Z59.00 Homelessness unspecified; Z79.899 Other long term (current) drug therapy; X58.XXXA Exposure to other specified factors, initial encounter; Y93.89 Activity, other specified; Y92.89 Other specified places as the place of occurrence of the external cause; Y99.8 Other external cause status
CPT/HCPCS: 36415; 70450; 70486; 80053; 80329; 99284; G0480; 80320

== ENCOUNTER 2025-04-25 05:13 | Emergency (ER) | payer MEDICARE, MEDICAID ==
[~2025-04-25] VITALS: Ht 167.6 cm; Wt 68.2 kg
[~2025-04-25 05:13] MED LIST changes: +FURO40TA4 PO; +POTA8TAB69 PO
[2025-04-25 05:19] VITALS: BP 159/81; PULSE 81; RESP 19; TEMP 98.3; O2SAT 100
--- NOTE | 2025-04-25 05:32 | Physician Documentation ---
History of Present Illness ~ Chief Complaint: Leg Pain Stated Complaint: LEG PAIN Time Seen by MD: 05:31 Primary Medical Doctor: NO PMD HPI Patient presents to the emergency room for evaluation of wound to his left reyez has been going on for some time. He was seen here yesterday and prescribed antibiotics for nasal fracture however he failed to pick it up as he states that has a co-pay. He was discussing with nurse in triage and found to be going to the wrong pharmacy. Tetanus witin 5 years: Yes (2023) Medication Reconciliation Allergies: Coded Allergies: Penicillins (Verified Allergy, Unknown, itching, 04/25/25) Scheduled Cefuroxime Axetil (Cefuroxime), 1 TAB PO Q12H Cephalexin*Monohydrate* (Keflex*), 1 CAP PO QID Cephalexin*Monohydrate* (Keflex*), 1 CAP PO Q8H Folic Acid* (Folic Acid*), 1 MG PO DAILY Furosemide (Furosemide), 1 TAB PO DAILY Lactobacillus Rhamnosus (Culturelle), 1 CAP PO DAILY Lidocaine (Lidoderm), 1 PATCH TOP DAILY Multivitamin with Folic Acid (Thera Tablet), 1 EACH PO Q24H Potassium Chloride (Klor-Con 8), 1 TAB PO DAILY Tamsulosin Hcl* (Flomax*), 1 CAP PO DAILY, (Reported) Thiamine Mononitrate (Vitamin B-1), 1 TAB PO DAILY Scheduled PRN Ibuprofen (Ibu), 1 TAB PO Q4HPRN PRN for pain Miscellaneous Medications Home Med List (No Home Medications), (Reported) Discontinued Medications Aspirin (Aspirin EC), 1 TAB PO DAILY Discontinued Reason: Auto Discontinued Past Medical History Past Medical History: No Pertinent History, Arthritis, Extremity Fracture Past Surgical History: orthopedic surgeries Patient History: Patient reports no known family medical history. Drug Use: none Lives In: Other Review of Systems ROS All review of systems negative except as per HPI Physical Exam Vital Signs: Temperature: 98.3, Source: Oral, Heart Rate: 81, Respiratory Rate: 19, BP: 159/81, Pulse Oximetry: 100, Weight: 68.180 Oxygen Flow Rate: 0 Physical Exam General: Patient is awake, alert, oriented x4 in no acute distress Head: Normocephalic with a scab to his nose. Eyes: Conjunctival normal. EOMI. PERRL. ENT: Mucous membranes moist. Neck: Supple, trachea is midline. Chest: Clear to auscultation bilaterally without rales, rhonchi, or wheezes. There is no accessory muscle use or retractions. Cardiac: RRR without murmurs, gallops, or rubs. Abd: Soft, nondistended, nontender, with normoactive bowel sounds. No guarding, rebound, or rigidity. Extremities: Abrasion to left reyez measuring 3 cm x 2 cm with no signs of infection Progress Results/Orders Results/Orders Vital Signs 04/25/25 05:19 Temp 98.3 Pulse 81 Resp 19 B/P (MAP) 159/81 Pulse Ox 100 O2 Flow Rate 0 Medical Decision Making Findings Patient presented to the emergency room with concerns of his lower extremity to left various differentials include but are not limited to cellulitis, abscess, abrasion, DVT. Symptoms inconsistent with DVT. I will give him a hard copy of his antibiotic that he can fill for his nose and this should cover any infection to his reyez. Departure Disposition: HOME / SELF CARE / HOMELESS Impression: Primary Impression: Abrasion Condition: Stable Discharge Instructions: Wound Care, Adult Referrals: NO PRIMARY CARE PROVIDER (PCP) Prescriptions Cephalexin*Monohydrate* (Keflex*) 500 Mg Capsule 1 CAP PO Q12H for 10 Days, #20 CAP Prov: RUSS JEONG MD 04/25/25 Education Educated: Patient Educated regarding: diagnosis, treatment, need for follow up Signature Scribe Signature: No scribe Attestation: The note accurately reflects work and decisions made by me.Russ Jeong MD 04/25/25 05:38 RUSS JEONG MD Apr 25, 2025 05:32
[2025-04-25] MEDS ORDERED: CEPH-585 PO (05:37)
== END 2025-04-25 05:44 | disposition home or self-care (01) ==
LOC: ER 05:14
DX: S80.812A Abrasion, left lower leg, initial encounter (principal); Z88.8 Allergy status to other drugs, medicaments and biological substances; Z88.0 Allergy status to penicillin; X58.XXXA Exposure to other specified factors, initial encounter; Y93.89 Activity, other specified; Y92.89 Other specified places as the place of occurrence of the external cause; Y99.8 Other external cause status
CPT/HCPCS: 99283

== ENCOUNTER 2025-05-08 09:29 | Emergency (ER) | payer MEDICARE, MEDICAID ==
[~2025-05-08] VITALS: Ht 167.6 cm; Wt 70.1 kg
[2025-05-08 09:43] VITALS: BP 155/62; PULSE 70; RESP 18; TEMP 97.9; O2SAT 96
--- NOTE | 2025-05-08 11:08 | Physician Documentation ---
History of Present Illness ~ Chief Complaint: Leg Pain Stated Complaint: LEG PAIN Time Seen by MD: 11:10 Primary Medical Doctor: NO PMD HPI 70-year-old male presents with acute flare-up of chronic left lower extremity pain, patient reports that he was here a proximally three weeks ago and received a pain shot that help the pain in his requesting this again. Reports no other acute symptoms or concerns. Patient reports no recent injuries to the area. Tetanus witin 5 years: Yes (2023) Medication Reconciliation Allergies: Coded Allergies: Penicillins (Verified Allergy, Unknown, itching, 04/25/25) Scheduled Cefuroxime Axetil (Cefuroxime), 1 TAB PO Q12H Cephalexin*Monohydrate* (Keflex*), 1 CAP PO QID Folic Acid* (Folic Acid*), 1 MG PO DAILY Furosemide (Furosemide), 1 TAB PO DAILY Lactobacillus Rhamnosus (Culturelle), 1 CAP PO DAILY Lidocaine (Lidoderm), 1 PATCH TOP DAILY Multivitamin with Folic Acid (Thera Tablet), 1 EACH PO Q24H Potassium Chloride (Klor-Con 8), 1 TAB PO DAILY Tamsulosin Hcl* (Flomax*), 1 CAP PO DAILY, (Reported) Thiamine Mononitrate (Vitamin B-1), 1 TAB PO DAILY Scheduled PRN Ibuprofen (Ibu), 1 TAB PO Q4HPRN PRN for pain Miscellaneous Medications Home Med List (No Home Medications), (Reported) Discontinued Medications Cephalexin*Monohydrate* (Keflex*), 1 CAP PO Q8H Discontinued Reason: Auto Discontinued Cephalexin*Monohydrate* (Keflex*), 1 CAP PO Q12H Discontinued Reason: Auto Discontinued Past Medical History Past Medical History: No Pertinent History, Arthritis, Extremity Fracture Past Surgical History: orthopedic surgeries Patient History: Patient reports no known family medical history. Drug Use: none Lives In: Other Review of Systems ROS As stated above in the HPI, otherwise all systems are reviewed and negative. Physical Exam Vital Signs: Temperature: 97.9, Source: Temporal, Heart Rate: 70, Respiratory Rate: 18, BP: 155/62, Pulse Oximetry: 96, Weight: 70.100 Oxygen Flow Rate: 0 Physical Exam VITALS: Reviewed and as above. GENERAL: Alert, nontoxic appearing, no apparent distress. RESPIRATORY: No increased work of breathing, no respiratory distress, speaking in full clear sentences CV: Brisk capillary refill in left lower extremity NEURO: Sensation intact in right lower extremity Progress Results/Orders Results/Orders Completed Orders - EJ BARNETT Ketorolac Trometh 15mg/Ml Vial (Toradol (05/08/25 11:25) Vital Signs 05/08/25 09:43 Temp 97.9 Pulse 70 Resp 18 B/P (MAP) 155/62 Pulse Ox 96 O2 Flow Rate 0 Medical Decision Making Findings This 70-year-old male presented with chronic left lower extremity pain, physical exam did not demonstrate evidence of new injury and location of pain in the anterior portion of leg along with lack of swelling makes my concern for DVT low, additionally it is reassuring patient reports the location of the pain has not changed. Due to no evidence of new injury and no change in nature of pain further imaging is not indicated. Patient will be medicated with Toradol as you reports in the past ibuprofen has helped the pain. Patient advised that he must follow up with the primary care provider for referral for possible paint roller winder to manage chronic pain. Patient is otherwise well- appearing with a benign physical exam and appropriate for outpatient follow up. Patient provided follow up instructions and return to care precautions which he verbalized understanding of. General Diff Dx:Considerations: Include: Abrasion, Contusion, Fracture, Dimitri beulah, Laceration, Neurovascular injury, Sprain, Ulcer, Other (Cellulitis) Departure Time of Disposition: 12:05 Disposition: 01 HOME / SELF CARE / HOMELESS Impression: Primary Impression: Chronic pain of left lower extremity Condition: Stable Additional Instructions: You have been medicated for your chronic pain, I am unable to manage your chronic pain on a long-term basis you will need to see a primary care provider and possibly a paint roller winder. Continue to use ibuprofen and or Tylenol as needed for pain as directed by [id number] packaging. Please follow up with your primary care provider in the next few days. Please return to the emergency department for any new or worsening concerning symptoms. Referrals: NO PRIMARY CARE PROVIDER (PCP) Education Educated: Patient Educated regarding: diagnosis, treatment, prognosis, need for follow up Signature Scribe Signature: No scribe Attestation: The note accurately reflects work and decisions made by me.CRIS Walker 05/10/25 16:55 EJ BARNETT May 08, 2025 11:08
[2025-05-08] MEDS: ketorolac trometh 15mg/ml vial 15 MG/ML ML IM ONE (12:18)
== END 2025-05-08 12:20 | disposition home or self-care (01) ==
LOC: ER 09:29
DX: G89.29 Other chronic pain (principal); M79.605 Pain in left leg; Z88.0 Allergy status to penicillin; Z88.8 Allergy status to other drugs, medicaments and biological substances
CPT/HCPCS: 99282

== ENCOUNTER 2025-05-28 13:40 | Emergency (ER) | payer MEDICARE, MEDICAID ==
[~2025-05-28] VITALS: Ht 172.7 cm; Wt 77.0 kg
[2025-05-28 13:46] VITALS: BP 136/72; PULSE 80; TEMP 97.6; O2SAT 100
--- NOTE | 2025-05-28 14:40 | Physician Documentation ---
History of Present Illness ~ Chief Complaint: Leg Pain Stated Complaint: L LEG PAIN Time Seen by MD: 14:34 Primary Medical Doctor: NO PMD HPI 70-year-old male presents to the ED with leg pain for the last 20 years. Status outpatient coming in and was able to walk with a stable gait and laughing. States that he wants "30 cc of morphine in his butt". This is any acute in he has been wearing of foot boot for previous injury. Day of Onset: May 28, 2025 Tetanus witin 5 years: Yes (2023) Medication Reconciliation Allergies: Coded Allergies: Penicillins (Verified Allergy, Unknown, itching, 05/28/25) Scheduled Cefuroxime Axetil (Cefuroxime), 1 TAB PO Q12H Cephalexin*Monohydrate* (Keflex*), 1 CAP PO QID Folic Acid* (Folic Acid*), 1 MG PO DAILY Furosemide (Furosemide), 1 TAB PO DAILY Lactobacillus Rhamnosus (Culturelle), 1 CAP PO DAILY Lidocaine (Lidoderm), 1 PATCH TOP DAILY Multivitamin with Folic Acid (Thera Tablet), 1 EACH PO Q24H Potassium Chloride (Klor-Con 8), 1 TAB PO DAILY Tamsulosin Hcl* (Flomax*), 1 CAP PO DAILY, (Reported) Thiamine Mononitrate (Vitamin B-1), 1 TAB PO DAILY Scheduled PRN Ibuprofen (Ibu), 1 TAB PO Q4HPRN PRN for pain Miscellaneous Medications Home Med List (No Home Medications), (Reported) Past Medical History Past Medical History: No Pertinent History, Arthritis, Extremity Fracture Past Surgical History: orthopedic surgeries Patient History: Patient reports no known family medical history. Drug Use: none Lives In: Other Review of Systems All Other Systems at this time: Reviewed and Negative ROS As stated above in the HPI, otherwise all systems are reviewed and negative. Physical Exam Vital Signs: Temperature: 97.6, Source: Oral, Heart Rate: 80, Respiratory Rate: 18, BP: 136/72, Pulse Oximetry: 100, Weight: 77.000 Oxygen Flow Rate: 0 Physical Exam General: Alert, no apparent distress. Respiratory: Lungs clear, no respiratory distress. Extremities: Normal range of motion, no deformity. Orthotic boot in place skin is not warm to tension touch no evidence of ulceration Neurologic: Oriented x4. Psychiatric: Normal mood and affect. Skin: Normal color, warm and dry. No edema, no ecchymosis. Progress Results/Orders Results/Orders Completed Orders - PARTH TREVIZO NP Ketorolac Trometh 30mg/Ml Vial (Toradol (05/28/25 14:40) Medications Received in ER Medications (Trade) Dose Ordered Sig/Dejon Route PRN Reason Start Time Stop Time Status Last Admin Dose Admin (Toradol inj. 30mg/ml) 30 mg ONCE ONCE IM 05/28/25 14:40 05/28/25 14:44 DC 05/28/25 14:56 30 MG Vital Signs 05/28/25 05/28/25 13:46 14:56 Temp 97.6 Pulse 80 Resp 18 18 B/P (MAP) 136/72 Pulse Ox 100 O2 Flow Rate 0 Medical Decision Making Findings I offered Toradol to this patient and he graciously accepted. Do not see any reason to pursue any further imaging as his complaints are chronic in nature. He has been fully evaluated for his injuries and treated for them previously. This time he presents a safe discharge Departure Disposition: 01 HOME / SELF CARE / HOMELESS Impression: Primary Impression: Ankle pain, left Condition: Improved Discharge Instructions: Muscle Strain, [id number], RICE Therapy for Routine Care of Injuries, [id number] Referrals: NO PRIMARY CARE PROVIDER (PCP) Signature Scribe Signature: j Attestation: Scribed for Parth Trevizo Direct Selling Counselor by Parth Smith NP . 05/28/25 21:35 PARTH TREVIZO NP May 28, 2025 14:40
[2025-05-28 14:56] VITALS: RESP 18
[2025-05-28] MEDS: ketorolac trometh 30MG/ML vial 30 MG/ML VIAL IM ONE (14:56)
== END 2025-05-28 14:57 | disposition home or self-care (01) ==
LOC: ER 13:40
DX: M25.572 Pain in left ankle and joints of left foot (principal); Z88.0 Allergy status to penicillin; Z88.8 Allergy status to other drugs, medicaments and biological substances
CPT/HCPCS: 96372; 99284; J1885

== ENCOUNTER 2025-06-13 21:16 | Emergency (ER) | payer MEDICARE, MEDICAID ==
[~2025-06-13] VITALS: Ht 170.2 cm; Wt 81.8 kg
[2025-06-13 21:19] VITALS: BP 144/85; PULSE 80; RESP 14; TEMP 97.3; O2SAT 99
--- NOTE | 2025-06-13 22:22 | Physician Documentation ---
History of Present Illness ~ Chief Complaint: Leg Pain Stated Complaint: LEG PAIN Time Seen by MD: 21:43 Primary Medical Doctor: NO PMD HPI This is a 70-year-old male who presents with chronic left reyez pain worse over the last two weeks after patient reports walking long distances each day, patient reports that he was seen at [facility] yesterday and evaluated for possible DVT without findings. Patient reports that he has been prescribed medications for this pain however has been unable to pick them up due to insurance issues and ability to pay for co-pay. Tetanus witin 5 years: Yes (2023) Medication Reconciliation Allergies: Coded Allergies: Penicillins (Verified Allergy, Unknown, itching, 06/13/25) Scheduled Cefuroxime Axetil (Cefuroxime), 1 TAB PO Q12H Cephalexin*Monohydrate* (Keflex*), 1 CAP PO QID Folic Acid* (Folic Acid*), 1 MG PO DAILY Furosemide (Furosemide), 1 TAB PO DAILY Lactobacillus Rhamnosus (Culturelle), 1 CAP PO DAILY Lidocaine (Lidoderm), 1 PATCH TOP DAILY Multivitamin with Folic Acid (Thera Tablet), 1 EACH PO Q24H Potassium Chloride (Klor-Con 8), 1 TAB PO DAILY Tamsulosin Hcl* (Flomax*), 1 CAP PO DAILY, (Reported) Thiamine Mononitrate (Vitamin B-1), 1 TAB PO DAILY Scheduled PRN Ibuprofen (Ibu), 1 TAB PO Q4HPRN PRN for pain Miscellaneous Medications Home Med List (No Home Medications), (Reported) Past Medical History Past Medical History: No Pertinent History, Arthritis, Extremity Fracture Past Surgical History: orthopedic surgeries Patient History: Patient reports no known family medical history. Smoking Status: Unknown if ever smoked Drug Use: none Lives In: Other Review of Systems ROS As stated above in the HPI, otherwise all systems are reviewed and negative. Physical Exam Vital Signs: Temperature: 97.3, Source: Oral, Heart Rate: 80, Respiratory Rate: 14, BP: 144/85, Pulse Oximetry: 99, Weight: 81.820 Physical Exam VITALS: Reviewed and as above. GENERAL: Alert, nontoxic appearing, no apparent distress. RESPIRATORY: No increased work of breathing, no respiratory distress, speaking in full clear sentences EXTREMITIES: Tenderness to left anterior reyez, no swelling to left reyez as compared to right reyez, no ecchymosis, no erythema, no visible injuries Progress Results/Orders Results/Orders Vital Signs 06/13/25 21:19 Temp 97.3 Pulse 80 Resp 14 B/P (MAP) 144/85 Pulse Ox 99 Medical Decision Making Findings This 70-year-old male with a history of chronic left reyez pain presented with increased left reyez pain, patient has recently seen for the same without acute findings, as this pain is chronic patient was offered nonnarcotic medications however he has declined as he reports I have those at home, patient advised that he will need to follow up with primary care for chronic pain management. Patient is well-appearing and appropriate for outpatient follow up. Patient provided return to care precautions he verbalized understanding of. General Diff Dx:Considerations: Include: Abrasion, Fracture, Laceration, Neurovascular injury, Sprain Departure Time of Disposition: 22:21 Disposition: HOME / SELF CARE / HOMELESS Impression: Primary Impression: Left leg pain Condition: Improved Additional Instructions: Please use your previously prescribed ibuprofen and or Tylenol as needed for pain. Please follow up with your primary care provider for management of chronic leg pain. Please follow up with your primary care provider in the next few days. Please return to the emergency department for any new or worsening concerning symptoms. Referrals: NO PRIMARY CARE PROVIDER (PCP) Education Educated: Patient Educated regarding: diagnosis, treatment, prognosis, need for follow up Signature Scribe Signature: No scribe Attestation: The note accurately reflects work and decisions made by me.CRIS Walker 06/13/25 22:22 EJ BARNETT Jun 13, 2025 22:22
== END 2025-06-13 22:52 | disposition home or self-care (01) ==
LOC: ER 21:17
DX: M79.605 Pain in left leg (principal); M19.90 Unspecified osteoarthritis, unspecified site; Z88.0 Allergy status to penicillin; Z79.899 Other long term (current) drug therapy; Z98.890 Other specified postprocedural states
CPT/HCPCS: 99282

== ENCOUNTER 2025-06-26 05:19 | Emergency (ER) | payer MEDICARE, MEDICAID ==
[~2025-06-26] VITALS: Ht 170.2 cm; Wt 79.5 kg
[2025-06-26 05:20] VITALS: BP 139/78; PULSE 62; RESP 16; TEMP 97.5; O2SAT 99
--- NOTE | 2025-06-26 05:49 | Physician Documentation ---
History of Present Illness ~ Chief Complaint: Leg Pain Stated Complaint: RIGHT LEG PAIN M BLS Time Seen by MD: 05:33 Primary Medical Doctor: NO PMD Source: patient, EMS, EMS notes reviewed Mode of Arrival: EMS Exam Limitations: no limitations HPI Chief Complaint: Right leg pain Caveat: None Independent Historians: Paramedics History of Present Illness: Patient is a 70-year-old man who comes in complaining of right leg pain. Patient states that he has had this for 20 years. Patient is requesting Toradol shot. Patient states that the pain got worse last night. Pain is worse with walking. Patient is denying any trauma. Patient denies any bowel incontinence or urinary retention. PATIENT DESCRIBES THE PAIN SHARP. Review of systems: All systems were reviewed and are negative except for what is indicated in the history of present illness. Past Medical History: BPH Past Surgical History: Orthopedic surgeries Social History: Tobacco use, marijuana use Medications: Reviewed as documented Nursing Notes Allergies: Reviewed as documented in Nursing Notes Tetanus witin 5 years: Yes (2023) Medication Reconciliation Allergies: Coded Allergies: Penicillins (Verified Allergy, Unknown, itching, 06/13/25) Scheduled Cefuroxime Axetil (Cefuroxime), 1 TAB PO Q12H Cephalexin*Monohydrate* (Keflex*), 1 CAP PO QID Folic Acid* (Folic Acid*), 1 MG PO DAILY Furosemide (Furosemide), 1 TAB PO DAILY Lactobacillus Rhamnosus (Culturelle), 1 CAP PO DAILY Lidocaine (Lidoderm), 1 PATCH TOP DAILY Multivitamin with Folic Acid (Thera Tablet), 1 EACH PO Q24H Potassium Chloride (Klor-Con 8), 1 TAB PO DAILY Tamsulosin Hcl* (Flomax*), 1 CAP PO DAILY, (Reported) Thiamine Mononitrate (Vitamin B-1), 1 TAB PO DAILY Scheduled PRN Ibuprofen (Ibu), 1 TAB PO Q4HPRN PRN for pain Miscellaneous Medications Home Med List (No Home Medications), (Reported) Past Medical History Past Medical History: No Pertinent History, Arthritis, Extremity Fracture Past Surgical History: orthopedic surgeries Patient History: Patient reports no known family medical history. Drug Use: none Lives In: Other Review of Systems All Other Systems at this time: Reviewed and Negative ROS Patient denies any other acute symptoms other than above. All other systems are negative Physical Exam Vital Signs: RN Vital Signs have been reviewed: Yes, Temperature: 97.5, Source: Oral, Heart Rate: 62, Respiratory Rate: 16, BP: 139/78, Pulse Oximetry: 99, Weight: 79.550 Oxygen Flow Rate: 0 Pulse Oximetry Reflects: adequate oxygenation Physical Exam General Appearance: No distress HEENT: Normal OP, moist oral mucosa, PERRL, EOMI Neck: supple, normal ROM, trachea midline Pulmonary: No respiratory distress, CTA, BS equal Cardiac: RRR, no murmur, rub or gallop, Extremities: normal ROM but has pain in the right leg with flexion at the knee, no swelling, tenderness to the anterior right leg but the calf is soft and nontender. 2+ DP PT pulses bilaterally Skin: intact, dry, warm, no rashes Neuro: AAOx3, speech is clear, no focal motor weakness Psych: normal affect, good eye contact, no apparent hallucination, normal speech Progress Results/Orders Results/Orders Vital Signs 06/26/25 05:20 Temp 97.5 Pulse 62 Resp 16 B/P (MAP) 139/78 Pulse Ox 99 O2 Flow Rate 0 Medical Decision Making Additional info obtained from: old records Findings Differential diagnosis includes but is not limited to: Peripheral vascular disease, trauma, chronic pain, arthritis Emergency department course/medical decision-making: Patient is a 70-year-old man who comes in complaining of acute on chronic right leg pain. Patient's physical exam is unremarkable and atraumatic. Patient is requesting Toradol for his pain. This will be provided 15 mg IM. Patient is lower extremities appear neurovascularly intact. There was no concern for cauda equina syndrome or a medical or surgical emergency. Patient is stable for discharge. Patient will be given a prescription for Flomax since he has difficulty with urination secondary to BPH. Patient is instructed to follow up with the [facility]. General Diff Dx:Considerations: Include: Other (See above) Knee Diff Dx:Considerations: Include: Other (See above) Ankle Diff Dx:Considerations: Include: Other (See above) Foot Diff Dx:Considerations: Include: Other (See above) Toe Diff Dx:Considerations: Include: Other (See above) Departure Time of Disposition: 05:51 Disposition: 01 HOME / SELF CARE / HOMELESS Impression: Primary Impression: Acute on chronic right leg pain Condition: Stable Discharge Instructions: Chronic Pain, Adult Additional Instructions: THE CAUSE OF YOUR PAIN IS UNKNOWN. FOLLOW UP WITH YOUR DOCTOR AT THE [facility]. Referrals: [facility] Prescriptions Tamsulosin Hcl* (Flomax*) 0.4 Mg Cap.sr.24h 1 CAP PO DAILY for 30 Days, #30 CAP Prov: JASS VINES MD 06/26/25 Education Educated: Patient Educated regarding: diagnosis, treatment Signature Scribe Signature: No scribe Attestation: No scribe JASS VINES MD Jun 26, 2025 05:49
[2025-06-26] MEDS: ketorolac trometh 15mg/ml vial 15 MG/ML ML IM ONE (05:50)
[2025-06-26] MEDS ORDERED: TAMS-55 PO (05:52)
== END 2025-06-26 05:59 | disposition home or self-care (01) ==
LOC: ER 05:20
DX: M79.604 Pain in right leg (principal); F12.90 Cannabis use, unspecified, uncomplicated; Z88.0 Allergy status to penicillin; Z88.8 Allergy status to other drugs, medicaments and biological substances
CPT/HCPCS: 96372; 99283; J1885

== ENCOUNTER 2025-07-03 05:08 | Emergency (ER) | payer MEDICARE, MEDICAID ==
[~2025-07-03] VITALS: Ht 167.6 cm; Wt 77.3 kg
--- NOTE | 2025-07-03 06:12 | Physician Documentation ---
History of Present Illness General Chief Complaint: Back Pain Stated Complaint: BACK PAIN A BLS Time Seen by MD: 06:12 OK to notify your PCP?: No Primary Medical Doctor: NO PMD Source: patient, RN notes reviewed Mode of Arrival: POV Exam Limitations: no limitations History of Present Illness Initial Comments 70 year old male, with distant history of right lower leg fracture, presents complaining of acute on chronic right reyez pain. Patient states he has arthritis in the leg and used to take morphine before he "ran out." Recently he was able to get 3 tablets of norco from his friend, and "take a shot of whiskey" with improvement of pain. He is requesting a "10cc shot of morphine in the buttocks," however ultimately requests Toradol. He denies any new trauma or injury to the right leg, and is able to ambulate. Medication Reconciliation Allergies: Coded Allergies: Penicillins (Verified Allergy, Unknown, itching, 07/03/25) Scheduled Cefuroxime Axetil (Cefuroxime), 1 TAB PO Q12H Cephalexin*Monohydrate* (Keflex*), 1 CAP PO QID Folic Acid* (Folic Acid*), 1 MG PO DAILY Furosemide (Furosemide), 1 TAB PO DAILY Lactobacillus Rhamnosus (Culturelle), 1 CAP PO DAILY Lidocaine (Lidoderm), 1 PATCH TOP DAILY Multivitamin with Folic Acid (Thera Tablet), 1 EACH PO Q24H Potassium Chloride (Klor-Con 8), 1 TAB PO DAILY Tamsulosin Hcl* (Flomax*), 1 CAP PO DAILY, (Reported) Tamsulosin Hcl* (Flomax*), 1 CAP PO DAILY Thiamine Mononitrate (Vitamin B-1), 1 TAB PO DAILY Scheduled PRN Ibuprofen (Ibu), 1 TAB PO Q4HPRN PRN for pain Miscellaneous Medications Home Med List (No Home Medications), (Reported) Past Medical History Past Medical History: Arthritis, Extremity Fracture Past Surgical History: orthopedic surgeries Smoking: Cigarettes Drug Use: none Lives In: Home Review of Systems All Other Systems at this time: Reviewed and Negative ROS As stated above in the HPI, otherwise all systems are reviewed and negative. Physical Exam Physical Exam Vital Signs: RN Vital Signs have been reviewed: Yes, Temperature: 98.9, Source: Oral, Heart Rate: 85, Respiratory Rate: 19, BP: 156/83, Pulse Oximetry: 96, Weight: 77.270 Oxygen Flow Rate: 0 Pulse Oximetry Reflects: adequate oxygenation Physical Exam VITALS: Reviewed and as above. GENERAL: Alert, no apparent distress. HEENT: Normocephalic, atraumatic, PERRL, EOMI, dry mucosa CV: Regular rate, regular rhythm, no edema, no murmur, No: JVD MUSCULOSKELETAL: RLE: No appreciable trauma, nontender. No erythema, no deformity. Otherwise: Ambulating well. No deformities, no edema SKIN: Warm and dry, no rash NEURO: Oriented x4, No motor or sensory deficit PSYCH: Normal mood and affect, no agitation Progress Results/Orders Reviewed/noted all lab results: Yes Results/Orders Completed Orders - AMELIA EMERSON MD Ketorolac Trometh 15mg/Ml Vial (Toradol (07/03/25 06:30) Vital Signs 07/03/25 07/03/25 07/03/25 05:28 06:57 06:58 Temp 98.9 98.9 Pulse 85 87 Resp 19 18 18 B/P (MAP) 156/83 136/88 Pulse Ox 96 99 O2 Flow Rate 0 Medical Decision Making Additional information obtaine: old records (see for the same one week ago) Findings Patient with chronic leg pain patient has a benign exam there was no obvious pathology on exam he is requesting 10 cc of morphine, he was told he will not receive 10 cc of morphine he is willing to accept a Toradol shot. The patient was given a shot of Toradol previous hospitalizations were reviewed patient's pulse oximetry was interpreted as adequate normal the patient will be discharged Differential Diagnosis na Departure Time of Disposition: 06:33 Disposition: 01 HOME / SELF CARE / HOMELESS Impression: Primary Impression: Chronic pain of right lower extremity Condition: Stable Discharge Instructions: Chronic Pain, Adult Additional Instructions: Follow up with your regular doctor. Return to the ER for other concerns. Education Educated: Patient Educated regarding: diagnosis, treatment, need for follow up Signature Scribe Signature: Scribed for Amelia Emerson MD by Roque Jung . 07/03/25 06:27 Attestation: The note accurately reflects work and decisions made by me.Amelia Emerson MD 07/04/25 16:14 AMELIA EMERSON MD Jul 03, 2025 06:12 ROQUE COLES Jul 03, 2025 06:33
[2025-07-03] MEDS: ketorolac trometh 15mg/ml vial 15 MG/ML ML IM ONE (06:57)
[2025-07-03 06:58] VITALS: BP 136/88; PULSE 87; RESP 18; TEMP 98.9; O2SAT 99
== END 2025-07-03 07:01 | disposition home or self-care (01) ==
LOC: ER 05:09
DX: G89.29 Other chronic pain (principal); M79.661 Pain in right lower leg; M19.90 Unspecified osteoarthritis, unspecified site; F17.210 Nicotine dependence, cigarettes, uncomplicated; Z88.0 Allergy status to penicillin; Z79.899 Other long term (current) drug therapy; Z98.890 Other specified postprocedural states
CPT/HCPCS: 96372; 99283; J1885

== ENCOUNTER 2025-07-08 13:53 | Emergency (ER) | payer MEDICARE, MEDICAID ==
[~2025-07-08] VITALS: Ht 167.6 cm; Wt 71.3 kg
[2025-07-08 14:04] VITALS: TEMP 97.1
--- NOTE | 2025-07-08 14:13 | Physician Documentation ---
History of Present Illness ~ Chief Complaint: Leg Pain Stated Complaint: RIGHT LEG PAIN Time Seen by MD: 15:34 Primary Medical Doctor: NO PMD HPI Patient is a 62-year-old male who reports to the emergency department for evaluation of right lower extremity pain times 10 years. Patient reports that she previously told he has nerve pain in that leg patient denies any new injuries. Denies any additional symptoms at this time. Tetanus witin 5 years: Yes (2023) Medication Reconciliation Allergies: Coded Allergies: Penicillins (Verified Allergy, Unknown, itching, 07/08/25) Scheduled Cefuroxime Axetil (Cefuroxime), 1 TAB PO Q12H Cephalexin*Monohydrate* (Keflex*), 1 CAP PO QID Folic Acid* (Folic Acid*), 1 MG PO DAILY Furosemide (Furosemide), 1 TAB PO DAILY Lactobacillus Rhamnosus (Culturelle), 1 CAP PO DAILY Lidocaine (Lidoderm), 1 PATCH TOP DAILY Multivitamin with Folic Acid (Thera Tablet), 1 EACH PO Q24H Potassium Chloride (Klor-Con 8), 1 TAB PO DAILY Tamsulosin Hcl* (Flomax*), 1 CAP PO DAILY, (Reported) Tamsulosin Hcl* (Flomax*), 1 CAP PO DAILY Thiamine Mononitrate (Vitamin B-1), 1 TAB PO DAILY Scheduled PRN Ibuprofen (Ibu), 1 TAB PO Q4HPRN PRN for pain Miscellaneous Medications Home Med List (No Home Medications), (Reported) Past Medical History Past Medical History: Arthritis, Extremity Fracture Past Surgical History: orthopedic surgeries Patient History: Patient reports no known family medical history. Drug Use: none Lives In: Home Review of Systems ROS As stated above in the HPI, otherwise all systems are reviewed and negative. Physical Exam Vital Signs: Temperature: 97.1, Source: Temporal, Heart Rate: 82, Respiratory Rate: 18, Pulse Oximetry: 100, Weight: 71.300 Oxygen Flow Rate: 0 Physical Exam VITALS: Reviewed and as above. GENERAL: Alert, no apparent distress. HEENT: Normocephalic, atraumatic, PERRL, EOMI, dry mucosa, no erythema RESPIRATORY: Lungs clear, normal breath sounds, no respiratory distress. CHEST: No accessory muscle use, no retractions CV: Regular rate, rhythm, no edema, no murmur, No: JVD GI: Soft, non-tender, bowels sounds present, no rebound, guarding, or rigidity BACK: No CVA tenderness, or swelling MUSCULOSKELETAL No deformities, no edema, mildly reduced range of motion to the right lower extremity during examination noted. SKIN: Warm and dry, no rash NEURO: Oriented x4, No motor or sensory deficit PSYCH: Normal mood and affect, no agitation Progress Results/Orders Results/Orders Vital Signs 07/08/25 14:04 Temp 97.1 Pulse 82 Resp 18 Pulse Ox 100 O2 Flow Rate 0 Medical Decision Making Additional information obtaine: other Findings 70-year-old male presented with chronic right lower extremity pain, described as burning and tingling, consistent with a neuropathic etiology. No acute neurological deficits or red flag symptoms were identified on exam. Assessment: Chronic neuropathic pain, right lower extremity. Differential includes peripheral neuropathy (etiology undetermined at this visit). No evidence of acute limb ischemia, infection, or spinal cord compromise. ED Management: Patient received a single dose of intramuscular ketorolac for acute pain relief. Given the chronicity and neuropathic features, initiated gabapentin 100 mg PO every 8 hours at discharge. This is consistent with current guidelines recommending gabapentinoids as first-line agents for neuropathic pain syndromes, with dose titration as tolerated and based on response. NSAIDs are not recommended for long-term use in older adults due to increased risk of adverse effects; short-term use in the ED is appropriate. Plan: Discharge with gabapentin 100 mg PO every 8 hours. Patient advised regarding potential side effects (dizziness, somnolence) and to discontinue if not tolerated. Strict return precautions for new or worsening neurological deficits, fever, loss of bowel/bladder control, or other red flag symptoms. Advised to follow up with primary care provider for further evaluation, monitoring of response, and consideration of non-pharmacologic interventions (e.g., physical therapy, exercise, education), which are recommended as part of a multimodal approach to chronic pain management. No opioid prescription provided, in line with best practice recommendations for chronic non-cancer pain. Patient verbalized understanding of discharge instructions and plan. General Diff Dx:Considerations: Include: Abrasion, Contusion, Fracture, Hematom a, Laceration, Malunion, Neurovascular injury, Open fracture, Sprain, Ulcer, Other Knee Diff Dx:Considerations: Include: Abrasion, Arthritis, Contusion, DJD, Fracture-femur, Fracture-fibula, Fracture-patella, Fracture-tibia, Gout, Hem atoma, Laceration, Meniscus injury, Neurovascular injury, Open fracture, Rheumatoid arthritis, Septic, Sprain, Sprain-MCL, Sprain-LCL, Sprain-ACL, Sprain-PCL, Other Ankle Diff Dx:Considerations: Include: Abrasion, Arthritis, Contusion, DJD, Fracture-metatarsal, Fracture-fibula, Fracture-tarsal, Fracture-tibia, Gout, Hematoma, Laceration, Malunion, Neurovascular injury, Nonunion, Open fracture, Osteomyelitis, Rheumatoid arthritis, Sprain, Septic, Ulcer, Other Foot Diff Dx:Considerations: Include: Abrasion, Arthritis, Cellulitis, Contusion, Dislocation, DJD, Fracture-metatarsal, Fracture-phalynx, Fracture- tarsal, Gout, Hematoma, Ingrown toenail, Laceration, Malunion, Neurovascular injury, Open fracture, Paronychia, Puncture, Rheumatoid, Sprain, Septic, Subungual hematoma, Ulcer, Other Toe Diff Dx:Considerations: Include: Abrasion, Cellulitis, Contusion, Dislocation, Felon, Fracture, Hematoma, Laceration, Neurovascular injury, Open fracture, Paronychia, Subungual hematoma, Other Departure Disposition: 01 HOME / SELF CARE / HOMELESS Impression: Primary Impression: Chronic pain of right lower extremity Condition: Stable Discharge Instructions: Chronic Pain, Adult, RICE Therapy for Routine Care of Injuries, [id number] Additional Instructions: You came to the emergency department with chronic pain in your right leg, which is likely due to nerve irritation or damage (neuropathic pain). Today, you received a Toradol (ketorolac) injection for short-term pain relief. You are being sent home with a prescription for gabapentin 100 mg to take every 8 hours. Gabapentin is a medication that helps with nerve pain by calming overactive nerves. How to take your medication: Take gabapentin exactly as prescribed: 100 mg by mouth every 8 hours. If you miss a dose, take it as soon as you remember, unless it is almost time for your next dose. Common side effects include feeling sleepy, dizzy, or unsteady. If these are severe or do not go away, contact your doctor. Do not drive or operate heavy machinery until you know how gabapentin affects you. What to watch for: Return to the emergency department immediately if you develop any of the following: New weakness, numbness, or loss of movement in your legs Loss of bladder or bowel control Fever, severe pain, or swelling Confusion or trouble thinking clearly Next steps: Follow up with your primary care provider within the next week for ongoing management and to discuss other options for pain control, including physical therapy, exercise, or other non-medication treatments. Do not use [id number] pain medications (like NSAIDs) for long periods without talking to your doctor, as these can have risks, especially in older adults. Keep track of your pain and any changes in your ability to do daily activities. Improving function is an important goal in pain management. If you have any questions or concerns about your medications or symptoms, contact your doctor or return to the emergency department. Referrals: NO PRIMARY CARE PROVIDER (PCP) Prescriptions Gabapentin (Gabapentin) 100 Mg Capsule 1 CAP PO Q8H for 30 Days, #90 CAP 0 Refills Prov: LYNN HARRISON 07/08/25 Education Educated: Patient Educated regarding: diagnosis, treatment, need for follow up Signature Scribe Signature: A Attestation: Scribed for Lynn Harrison by CRIS Holland . 07/08/25 15:47 LYNN HARRISON Jul 08, 2025 14:13
[2025-07-08] MEDS ORDERED: GABA-530 PO (15:42)
[2025-07-08] MEDS: ketorolac trometh 30MG/ML vial 30 MG/ML VIAL IM ONE (15:55)
[2025-07-08 15:56] VITALS: PULSE 79; RESP 15; O2SAT 100
== END 2025-07-08 15:59 | disposition home or self-care (01) ==
LOC: ER 13:54
DX: G89.29 Other chronic pain (principal); M79.604 Pain in right leg; Z88.0 Allergy status to penicillin; Z88.8 Allergy status to other drugs, medicaments and biological substances
CPT/HCPCS: 96372; 99283; J1885

== ENCOUNTER 2025-07-12 05:33 | Emergency (ER) | payer MEDICARE, MEDICAID ==
[~2025-07-12] VITALS: Ht 167.6 cm; Wt 80.0 kg
[~2025-07-12 05:33] MED LIST changes: +GABA-530 PO
[2025-07-12 05:40] VITALS: BP 156/82; PULSE 72; RESP 16; TEMP 97.6; O2SAT 100
== END 2025-07-12 09:57 | disposition left against medical advice (07) ==
LOC: ER 05:33
DX: M79.673 Pain in unspecified foot (principal); Z53.21 Procedure and treatment not carried out due to patient leaving prior to being seen by health care provider; Z88.0 Allergy status to penicillin
CPT/HCPCS: 99281

== ENCOUNTER 2025-07-16 03:49 | Emergency (ER) | payer MEDICARE, MEDICAID ==
[~2025-07-16] VITALS: Ht 170.2 cm; Wt 80.0 kg
[2025-07-16 03:56] VITALS: BP 133/90; PULSE 80; RESP 16; O2SAT 100
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
[2025-07-16 05:34] VITALS: TEMP 97.6
== END 2025-07-16 05:01 | disposition home or self-care (01) ==
LOC: ER 03:49
DX: S01.01XA Laceration without foreign body of scalp, initial encounter (principal); S09.90XA Unspecified injury of head, initial encounter; M19.90 Unspecified osteoarthritis, unspecified site; F10.129 Alcohol abuse with intoxication, unspecified; Z88.0 Allergy status to penicillin; Z88.8 Allergy status to other drugs, medicaments and biological substances; Y04.0XXA Assault by unarmed brawl or fight, initial encounter; Y93.89 Activity, other specified; Y92.89 Other specified places as the place of occurrence of the external cause; Y99.8 Other external cause status; Y90.9 Presence of alcohol in blood, level not specified
CPT/HCPCS: 12001; 70450; 99284; A6402; Z7610; A6449

== ENCOUNTER 2025-07-17 02:46 | Emergency (ER) | payer MEDICARE, MEDICAID ==
[~2025-07-17] VITALS: Ht 170.2 cm; Wt 80.0 kg
--- NOTE | 2025-07-17 03:18 | Physician Documentation ---
History of Present Illness ~ General Chief Complaint: See Chief Complaint Stated Complaint: LEG PAIN Time Seen by MD: 03:02 Primary Medical Doctor: NO PMD History of Present Illness Initial Comments Requesting toradol for leg pain. Medication Reconciliation Allergies: Coded Allergies: Penicillins (Verified Allergy, Unknown, itching, 07/12/25) Scheduled Cefuroxime Axetil (Cefuroxime), 1 TAB PO Q12H Cephalexin*Monohydrate* (Keflex*), 1 CAP PO QID Folic Acid* (Folic Acid*), 1 MG PO DAILY Furosemide (Furosemide), 1 TAB PO DAILY Gabapentin (Gabapentin), 1 CAP PO Q8H Lactobacillus Rhamnosus (Culturelle), 1 CAP PO DAILY Lidocaine (Lidoderm), 1 PATCH TOP DAILY Multivitamin with Folic Acid (Thera Tablet), 1 EACH PO Q24H Potassium Chloride (Klor-Con 8), 1 TAB PO DAILY Tamsulosin Hcl* (Flomax*), 1 CAP PO DAILY, (Reported) Tamsulosin Hcl* (Flomax*), 1 CAP PO DAILY Thiamine Mononitrate (Vitamin B-1), 1 TAB PO DAILY Scheduled PRN Ibuprofen (Ibu), 1 TAB PO Q4HPRN PRN for pain Miscellaneous Medications Home Med List (No Home Medications), (Reported) Past Medical History Past Medical History: Arthritis, Extremity Fracture Past Surgical History: orthopedic surgeries Patient History: Patient reports no known family medical history. Drug Use: none Lives In: Home Review of Systems All Other Systems at this time: Reviewed and Negative Physical Exam Physical Exam Vital Signs: RN Vital Signs have been reviewed: Yes, Temperature: 97.5, Heart Rate: 70, Respiratory Rate: 18, BP: 177/78, Pulse Oximetry: 100, Weight: 80.000 Oxygen Flow Rate: 0 Physical Exam General: Alert, no apparent distress. Neck: Full range of motion. Respiratory: Lungs clear, no respiratory distress. Extremities: Normal range of motion, no deformity. Neurologic: Oriented x4. Psychiatric: Normal mood and affect. Skin: Normal color, warm and dry. No edema, no ecchymosis. Progress Results/Orders Results/Orders Orders - SILVA TOBIN MD Ketorolac Trometh 30mg/Ml Vial (Toradol (07/17/25 03:10) Vital Signs 07/17/25 02:50 Temp 97.5 Pulse 70 Resp 18 B/P (MAP) 177/78 Pulse Ox 100 O2 Flow Rate 0 Medical Decision Making Additional information obtaine: N/A Findings Provided toradol, return precautions. Differential Diagnosis Ddx = chronic pain, malingering, med request Departure Disposition: HOME / SELF CARE / HOMELESS Impression: Primary Impression: Chronic leg pain Condition: Stable Discharge Instructions: Chronic Pain, Adult Referrals: NO PRIMARY CARE PROVIDER (PCP) Education Educated: Patient Educated regarding: diagnosis, treatment, prognosis, need for follow up Signature Scribe Signature: . Attestation: . SILVA TOBIN MD Jul 17, 2025 03:18
[2025-07-17] MEDS: ketorolac trometh 30MG/ML vial 30 MG/ML VIAL IM ONE (03:41)
[2025-07-17 03:47] VITALS: BP 170/70; PULSE 70; RESP 18; TEMP 98.6; O2SAT 99
== END 2025-07-17 03:50 | disposition home or self-care (01) ==
LOC: ER 02:46
DX: G89.29 Other chronic pain (principal); M79.605 Pain in left leg; M19.90 Unspecified osteoarthritis, unspecified site; Z88.0 Allergy status to penicillin; Z79.899 Other long term (current) drug therapy; Z98.890 Other specified postprocedural states
CPT/HCPCS: 96372; 99283; J1885

== ENCOUNTER 2025-07-17 23:19 | Emergency (ER) | payer MEDICARE, MEDICAID ==
[~2025-07-17] VITALS: Ht 170.2 cm; Wt 80.0 kg
--- NOTE | 2025-07-17 23:59 | Physician Documentation ---
History of Present Illness ~ Chief Complaint: Leg Pain Stated Complaint: RIGHT LEG PAIN Time Seen by MD: 23:57 Primary Medical Doctor: NO PMD HPI Patient presents to the emergency room for evaluation of chronic right lower extremity pain. That has requesting a Toradol injection. No additional complaints. He was seen here early in the morning for same complaint. Tetanus witin 5 years: Yes Medication Reconciliation Allergies: Coded Allergies: Penicillins (Verified Allergy, Unknown, itching, 07/12/25) Scheduled Cefuroxime Axetil (Cefuroxime), 1 TAB PO Q12H Cephalexin*Monohydrate* (Keflex*), 1 CAP PO QID Folic Acid* (Folic Acid*), 1 MG PO DAILY Furosemide (Furosemide), 1 TAB PO DAILY Gabapentin (Gabapentin), 1 CAP PO Q8H Lactobacillus Rhamnosus (Culturelle), 1 CAP PO DAILY Lidocaine (Lidoderm), 1 PATCH TOP DAILY Multivitamin with Folic Acid (Thera Tablet), 1 EACH PO Q24H Potassium Chloride (Klor-Con 8), 1 TAB PO DAILY Tamsulosin Hcl* (Flomax*), 1 CAP PO DAILY, (Reported) Tamsulosin Hcl* (Flomax*), 1 CAP PO DAILY Thiamine Mononitrate (Vitamin B-1), 1 TAB PO DAILY Scheduled PRN Ibuprofen (Ibu), 1 TAB PO Q4HPRN PRN for pain Miscellaneous Medications Home Med List (No Home Medications), (Reported) Past Medical History Past Medical History: Arthritis, Extremity Fracture Past Surgical History: orthopedic surgeries Patient History: Patient reports no known family medical history. Drug Use: none Lives In: Home Review of Systems ROS All review of systems negative except as per HPI Physical Exam Vital Signs: Temperature: 98.0, Heart Rate: 74, Respiratory Rate: 16, BP: 128/85, Pulse Oximetry: 99, Weight: 80.000 Oxygen Flow Rate: 0 Physical Exam General: Patient is awake, alert, oriented x4 in no acute distress Head: Normocephalic and atraumatic. Eyes: Conjunctival normal. EOMI. PERRL. ENT: Mucous membranes moist. Neck: Supple, trachea is midline. Chest: Clear to auscultation bilaterally without rales, rhonchi, or wheezes. There is no accessory muscle use or retractions. Cardiac: RRR without murmurs, gallops, or rubs. Extremities: Normal strength. Normal range of motion. No deformities or edema. Pulses intact. No calf tenderness to palpation Progress Results/Orders Results/Orders Orders - RUSS JEONG MD Ketorolac Trometh 15mg/Ml Vial (Toradol (07/18/25 00:05) Vital Signs 07/17/25 23:36 Temp 98.0 Pulse 74 Resp 16 B/P (MAP) 128/85 Pulse Ox 99 O2 Flow Rate 0 Medical Decision Making Additional information obtaine: old records Findings Patient presents to the emergency room with chronic pain asking for Toradol injection. I do not feel emergent labs or imaging is necessary General Diff Dx:Considerations: Include: Abrasion, Contusion, Fracture, Hematoma, Laceration, Malunion, Neurovascular injury, Open fracture, Sprain, Ulcer, Other Knee Diff Dx:Considerations: Include: Abrasion, Arthritis, Contusion, DJD, Fracture-femur, Fracture-fibula, Fracture-patella, Fracture-tibia, Gout, Hematoma, Laceration, Meniscus injury, Neurovascular injury, Open fracture, Rheumatoid arthritis, Septic, Sprain, Sprain-MCL, Sprain-LCL, Sprain-ACL, Sprain-PCL, Other Ankle Diff Dx:Considerations: Include: Abrasion, Arthritis, Contusion, DJD, Fracture-metatarsal, Fracture-fibula, Fracture-tarsal, Fracture-tibia, Gout, Hematoma, Laceration, Malunion, Neurovascular injury, Nonunion, Open fracture, Osteomyelitis, Rheumatoid arthritis, Sprain, Septic, Ulcer, Other Foot Diff Dx:Considerations: Include: Abrasion, Arthritis, Cellulitis, Contusion, Dislocation, DJD, Fracture-metatarsal, Fracture-phalynx, Fracture- tarsal, Gout, Hematoma, Ingrown toenail, Laceration, Malunion, Neurovascular injury, Open fracture, Paronychia, Puncture, Rheumatoid, Sprain, Septic, Subungual hematoma, Ulcer, Other Toe Diff Dx:Considerations: Include: Abrasion, Cellulitis, Contusion, Dislocation, Felon, Fracture, Hematoma, Laceration, Neurovascular injury, Open fracture, Paronychia, Subungual hematoma, Other Departure Disposition: 01 HOME / SELF CARE / HOMELESS Impression: Primary Impression: Chronic leg pain Condition: Stable Discharge Instructions: RICE Therapy for Routine Care of Injuries, [id number] Referrals: NO PRIMARY CARE PROVIDER (PCP) Signature Scribe Signature: No scribe Attestation: The note accurately reflects work and decisions made by me.Russ Jeong MD 07/18/25 00:03 RUSS JEONG MD Jul 17, 2025 23:59
[2025-07-18] MEDS: ketorolac trometh 15mg/ml vial 15 MG/ML ML IM ONE (00:10)
[2025-07-18 00:29] VITALS: BP 126/82; PULSE 72; RESP 18; TEMP 98.6; O2SAT 99
== END 2025-07-18 00:30 | disposition home or self-care (01) ==
LOC: ER 23:20
DX: G89.29 Other chronic pain (principal); M79.604 Pain in right leg; M19.90 Unspecified osteoarthritis, unspecified site; Z88.0 Allergy status to penicillin; Z79.899 Other long term (current) drug therapy; Z98.890 Other specified postprocedural states
CPT/HCPCS: 96372; 99283; J1885

== ENCOUNTER 2025-07-18 22:06 | Emergency (ER) | payer MEDICARE, MEDICAID ==
[~2025-07-18] VITALS: Ht 170.2 cm; Wt 72.7 kg
[2025-07-18 22:25] VITALS: BP 140/82; PULSE 68; RESP 16; TEMP 97.8; O2SAT 100
--- NOTE | 2025-07-18 23:20 | Physician Documentation ---
History of Present Illness ~ Chief Complaint: Leg Pain Stated Complaint: LEG PAIN RIGHT Time Seen by MD: 23:11 Primary Medical Doctor: NO PMD HPI Patient is a 70-year-old male that presents to the emergency department for chronic longstanding leg pain. Patient reports that he was given a Toradol injection for yesterday patient would like another Toradol injection today. Explained to the patient that we can not give him that much Toradol as it isn't healthy for him. Patient asked if he can have Tylenol and ibuprofen. Denies any other symptoms at this time. Tetanus witin 5 years: Yes Medication Reconciliation Allergies: Coded Allergies: Penicillins (Verified Allergy, Unknown, itching, 07/12/25) Scheduled Cefuroxime Axetil (Cefuroxime), 1 TAB PO Q12H Cephalexin*Monohydrate* (Keflex*), 1 CAP PO QID Folic Acid* (Folic Acid*), 1 MG PO DAILY Furosemide (Furosemide), 1 TAB PO DAILY Gabapentin (Gabapentin), 1 CAP PO Q8H Lactobacillus Rhamnosus (Culturelle), 1 CAP PO DAILY Lidocaine (Lidoderm), 1 PATCH TOP DAILY Multivitamin with Folic Acid (Thera Tablet), 1 EACH PO Q24H Potassium Chloride (Klor-Con 8), 1 TAB PO DAILY Tamsulosin Hcl* (Flomax*), 1 CAP PO DAILY, (Reported) Tamsulosin Hcl* (Flomax*), 1 CAP PO DAILY Thiamine Mononitrate (Vitamin B-1), 1 TAB PO DAILY Scheduled PRN Ibuprofen (Ibu), 1 TAB PO Q4HPRN PRN for pain Miscellaneous Medications Home Med List (No Home Medications), (Reported) Past Medical History Past Medical History: Arthritis, Extremity Fracture Past Surgical History: orthopedic surgeries Patient History: Patient reports no known family medical history. Drug Use: none Lives In: Home Review of Systems ROS As stated above in the HPI, otherwise all systems are reviewed and negative. Constitutional: Reports: no symptoms reported, see HPI, chills, diaphoresis, fever, malaise, weakness, other Eyes: Reports: no symptoms reported, see HPI, pain, discharge, blurred vision, double vision, itching, photophobia, redness, tearing, other ENT: Reports: no symptoms reported, see HPI, ear pain, ear bleeding, ear discharge, hearing loss, ear ringing, nose pain, nose bleeding, nose congestion, nose discharge, throat pain, throat swelling, voice change, mouth pain, mouth bleeding, mouth swelling, other Respiratory: Reports: no symptoms reported, see HPI, cough, orthopnea, shortness of breath, SOB with exertion, SOB at rest, stridor, wheezing, hemoptysis, pain with breathing, other Cardiovascular: Reports: no symptoms reported, see HPI, chest pain, left arm pain, diaphoresis, lightheadedness, syncope, edema, palpitations, irregular heart rate, other Gastrointestinal: Reports: no symptoms reported, see HPI, abdomen distended, abdominal pain, nausea, vomiting, diarrhea, constipated, melena, hematemesis, hematochezia, rectal bleeding, rectal pain, dysphagia, poor appetite, poor fluid intake, other Genitourinary: Reports: no symptoms reported, see HPI, burning, discharge, dysuria, frequency, flank pain, hematuria, incontinence, pain, decreased urine output, urgency, other Male Genitalia: Reports: no symptoms reported, see HPI, penile discharge, penile sore, testicular pain, testicular swelling, other Neurological: Reports: no symptoms reported, see HPI, speech problem, headache, dizziness, fainting, tingling, left sided numbness, right sided numbness, left sided weakness, right sided weakness, problems walking, unable to move lower ext, unable to move upper ext, petit mal seizures, tonic-clonic seizures, cognitive dysfunction, other Musculoskeletal: Reports: no symptoms reported, see HPI, pain, swelling, back pain, gout, joint pain, joint swelling, muscle pain, muscle swelling, muscle stiffness, neck pain, other Integumentary: Reports: no symptoms reported, see HPI, rash, itching, lesions, lumps, bruise(s), wound(s), laceration(s), dryness, change in color, other Physical Exam Vital Signs: Temperature: 97.8, Source: Temporal, Heart Rate: 68, Respiratory Rate: 16, BP: 140/82, Pulse Oximetry: 100, Weight: 72.700 Physical Exam VITALS: Reviewed and as above. GENERAL: Alert, no apparent distress. HEENT: Normocephalic, atraumatic, PERRL, EOMI, dry mucosa, no erythema RESPIRATORY: Lungs clear, normal breath sounds, no respiratory distress. CHEST: No accessory muscle use, no retractions CV: Regular rate, rhythm, no edema, no murmur, No: JVD GI: Soft, non-tender, bowels sounds present, no rebound, guarding, or rigidity BACK: No CVA tenderness, or swelling MUSCULOSKELETAL No deformities, no edema SKIN: Warm and dry, no rash NEURO: Oriented x4, No motor or sensory deficit PSYCH: Normal mood and affect, no agitation Progress Results/Orders Results/Orders Vital Signs 07/18/25 22:25 Temp 97.8 Pulse 68 Resp 16 B/P (MAP) 140/82 Pulse Ox 100 Medical Decision Making Additional information obtaine: other Findings Presents to the emergency department for evaluation of leg pain. Patient reports that he would like a Toradol injection. Patient reports that he was seen here yesterday and received a Toradol injection. Explained to the patient that he can not have a Toradol injection again today. Patient asked if he can h ave Tylenol and ibuprofen inappropriate dose of Tylenol and ibuprofen will be provided to the patient. Patient denies any other symptoms today. Patient will follow up with his primary care provider. Patient will return to the emergency department if he has any worsening of his current symptoms or any additional concerning symptoms that we discussed here today i.e. numbness tingling difficulty ambulating fever chills nausea vomiting diarrhea or any other symptoms we discussed here today. General Diff Dx:Considerations: Include: Abrasion, Contusion, Fracture, Hematoma, Laceration, Malunion, Neurovascular injury, Open fracture, Sprain, Ulcer, Other Knee Diff Dx:Considerations: Include: Abrasion, Arthritis, Contusion, DJD, Fracture-femur, Fracture-fibula, Fracture-patella, Fracture-tibia, Gout, Hematoma, Laceration, Meniscus injury, Neurovascular injury, Open fracture, Rheumatoid arthritis, Septic, Sprain, Sprain-MCL, Sprain-LCL, Sprain-ACL, Sprain-PCL, Other Ankle Diff Dx:Considerations: Include: Abrasion, Arthritis, Contusion, DJD, Fracture-metatarsal, Fracture-fibula, Fracture-tarsal, Fracture-tibia, Gout, Hematoma, Laceration, Malunion, Neurovascular injury, Nonunion, Open fracture, Osteomyelitis, Rheumatoid arthritis, Sprain, Septic, Ulcer, Other Foot Diff Dx:Considerations: Include: Abrasion, Arthritis, Cellulitis, Contusion, Dislocation, DJD, Fracture-metatarsal, Fracture-phalynx, Fracture- tarsal, Gout, Hematoma, Ingrown toenail, Laceration, Malunion, Neurovascular injury, Open fracture, Paronychia, Puncture, Rheumatoid, Sprain, Septic, Subungu al hematoma, Ulcer, Other Toe Diff Dx:Considerations: Include: Abrasion, Cellulitis, Contusion, Dislocation, Felon, Fracture, Hematoma, Laceration, Neurovascular injury, Open fracture, Paronychia, Subungual hematoma, Other Departure Disposition: 01 HOME / SELF CARE / HOMELESS Impression: Primary Impression: Chronic leg pain Condition: Stable Referrals: NO PRIMARY CARE PROVIDER (PCP) Education Educated: Patient Educated regarding: diagnosis, treatment, need for follow up MARY HARRISON GIANT TIRE REPAIRER Jul 18, 2025 23:19
[2025-07-18] MEDS: ibuprofen tablet 400 MG TABLET PO ONE (23:38)
== END 2025-07-18 23:40 | disposition home or self-care (01) ==
LOC: ER 22:07
DX: G89.29 Other chronic pain (principal); M79.604 Pain in right leg; M19.90 Unspecified osteoarthritis, unspecified site; Z88.0 Allergy status to penicillin; Z79.899 Other long term (current) drug therapy; Z98.890 Other specified postprocedural states
CPT/HCPCS: 99283

== ENCOUNTER 2025-07-20 21:49 | Emergency (ER) | payer MEDICARE, MEDICAID ==
[~2025-07-20] VITALS: Ht 172.7 cm; Wt 77.0 kg
[2025-07-20 23:44] VITALS: BP 123/69; PULSE 72; O2SAT 99
[2025-07-21 00:31] VITALS: RESP 18
[2025-07-21] MEDS: ketorolac trometh 15mg/ml vial 15 MG/ML ML IM ONE (00:31)
--- NOTE | 2025-07-21 00:32 | Physician Documentation ---
History of Present Illness General Chief Complaint: Leg Pain Stated Complaint: RIGHT LEG PAIN Time Seen by MD: 00:28 Primary Medical Doctor: NO PMD History of Present Illness Initial Comments The patient is a 70-year-old male who has been coming to the emergency room homeless daily for chronic lower extremity pain he complains of right leg pain. Patient is requesting a Toradol shot. The patient denies any recent fevers chills nausea vomiting or recent trauma. Medication Reconciliation Allergies: Coded Allergies: Penicillins (Verified Allergy, Unknown, itching, 07/12/25) Scheduled Cefuroxime Axetil (Cefuroxime), 1 TAB PO Q12H Cephalexin*Monohydrate* (Keflex*), 1 CAP PO QID Folic Acid* (Folic Acid*), 1 MG PO DAILY Furosemide (Furosemide), 1 TAB PO DAILY Gabapentin (Gabapentin), 1 CAP PO Q8H Lactobacillus Rhamnosus (Culturelle), 1 CAP PO DAILY Lidocaine (Lidoderm), 1 PATCH TOP DAILY Multivitamin with Folic Acid (Thera Tablet), 1 EACH PO Q24H Potassium Chloride (Klor-Con 8), 1 TAB PO DAILY Sulfamethoxazole/Trimethoprim (Septra Ds Tab), 1 TAB PO Q12H Tamsulosin Hcl* (Flomax*), 1 CAP PO DAILY, (Reported) Tamsulosin Hcl* (Flomax*), 1 CAP PO DAILY Thiamine Mononitrate (Vitamin B-1), 1 TAB PO DAILY Scheduled PRN Ibuprofen (Ibu), 1 TAB PO Q4HPRN PRN for pain Miscellaneous Medications Home Med List (No Home Medications), (Reported) Past Medical History Past Medical History: Arthritis, Extremity Fracture Past Surgical History: orthopedic surgeries Smoking: Cigarettes Drug Use: none Lives In: Home Review of Systems All Other Systems at this time: Reviewed and Negative Physical Exam Physical Exam Vital Signs: Temperature: 97.9, Heart Rate: 72, Respiratory Rate: 20, BP: 123/69, Pulse Oximetry: 99, Weight: 77.000 Physical Exam VITALS: Reviewed and as above. GENERAL: Alert, no apparent distress. HEENT: Normocephalic, atraumatic, PERRL, EOMI, dry mucosa, no erythema BACK: No CVA tenderness, or swelling MUSCULOSKELETAL: No deformities, no edema no erythema no masses SKIN: Warm and dry, no rash NEURO: Oriented x4, No motor or sensory deficit PSYCH: Normal mood and affect, no agitation Progress Results/Orders Results/Orders Completed Orders - AMELIA PHILLIP MD Ketorolac Trometh 15mg/Ml Vial (Toradol (07/21/25 00:25) Vital Signs 07/20/25 07/21/25 07/21/25 23:44 00:31 00:41 Temp 97.9 97.9 Pulse 72 Resp 20 18 B/P (MAP) 123/69 Pulse Ox 99 Medical Decision Making Additional information obtaine: old records Findings Patient with a chronic lower extremity pain the patient will be given a shot of Toradol and to be discharged there was no evidence of infection on exam he has good range of motion of the lower extremity. Prior hospitalizations has been reviewed the patient's pulse oximetry was interpreted as normal and adequate Differential Diagnosis Cellulitis, musculoskeletal pain, arthritis, osteomyelitis Departure Disposition: HOME / SELF CARE / HOMELESS Impression: Primary Impression: Chronic pain of right lower extremity Discharge Instructions: Leg Cramps Referrals: NO PRIMARY CARE PROVIDER (PCP) Signature Scribe Signature: No scribe Attestation: The note accurately reflects work and decisions made by me.Amelia Phillip MD 07/22/25 04:33 AMELIA PHILLIP MD Jul 21, 2025 00:32
[2025-07-21 00:41] VITALS: TEMP 97.9
[2025-07-21] MEDS ORDERED: SULF1TAB45 PO (20:41)
[2025-07-22] MEDS ORDERED: NAPR-56 PO (18:22)
== END 2025-07-21 00:45 | disposition home or self-care (01) ==
LOC: ER 21:50
DX: G89.29 Other chronic pain (principal); M79.604 Pain in right leg; M19.90 Unspecified osteoarthritis, unspecified site; F17.210 Nicotine dependence, cigarettes, uncomplicated; Z59.00 Homelessness unspecified; Z79.899 Other long term (current) drug therapy; Z98.890 Other specified postprocedural states
CPT/HCPCS: 96372; 99283; J1885

== ENCOUNTER 2025-07-21 19:52 | Emergency (ER) | payer MEDICARE, MEDICAID ==
[~2025-07-21] VITALS: Ht 170.2 cm; Wt 70.9 kg
[2025-07-21] MEDS ORDERED: SULF1TAB45 PO (20:41)
--- NOTE | 2025-07-21 20:42 | Physician Documentation ---
History of Present Illness ~ Chief Complaint: Leg Pain Stated Complaint: LEG PAIN Time Seen by MD: 20:28 OK to notify your PCP?: Yes Primary Medical Doctor: NO PMD Source: patient Mode of Arrival: POV Exam Limitations: no limitations HPI Returns for right reyez pain. He has been seen multiple times this week for chronic leg pain and has received Toradol injections. There is no obvious deformities or signs of infection to the reyez, but he does have erythema and edema and a wound on his right foot. Tetanus witin 5 years: Yes Medication Reconciliation Allergies: Coded Allergies: Penicillins (Verified Allergy, Unknown, itching, 07/12/25) Scheduled Cefuroxime Axetil (Cefuroxime), 1 TAB PO Q12H Cephalexin*Monohydrate* (Keflex*), 1 CAP PO QID Folic Acid* (Folic Acid*), 1 MG PO DAILY Furosemide (Furosemide), 1 TAB PO DAILY Gabapentin (Gabapentin), 1 CAP PO Q8H Lactobacillus Rhamnosus (Culturelle), 1 CAP PO DAILY Lidocaine (Lidoderm), 1 PATCH TOP DAILY Multivitamin with Folic Acid (Thera Tablet), 1 EACH PO Q24H Potassium Chloride (Klor-Con 8), 1 TAB PO DAILY Sulfamethoxazole/Trimethoprim (Septra Ds Tab), 1 TAB PO Q12H Tamsulosin Hcl* (Flomax*), 1 CAP PO DAILY, (Reported) Tamsulosin Hcl* (Flomax*), 1 CAP PO DAILY Thiamine Mononitrate (Vitamin B-1), 1 TAB PO DAILY Scheduled PRN Ibuprofen (Ibu), 1 TAB PO Q4HPRN PRN for pain Miscellaneous Medications Home Med List (No Home Medications), (Reported) Past Medical History Past Medical History: Arthritis, Extremity Fracture Past Surgical History: orthopedic surgeries Patient History: Patient reports no known family medical history. Drug Use: none Lives In: Home Review of Systems All Other Systems at this time: Reviewed and Negative Physical Exam Vital Signs: RN Vital Signs have been reviewed: Yes, Temperature: 98.1, Heart Rate: 70, Respiratory Rate: 20, BP: 131/72, Pulse Oximetry: 99, Weight: 70.900 Pulse Oximetry Reflects: adequate oxygenation Physical Exam General: Alert, no distress. HEENT: No injection, moist mucous membranes. Neck: Full range of motion. Respiratory: No respiratory distress, equal chest rise and fall. Chest: No accessory muscle use. Cardiovascular: Regular rate and rhythm. Gastrointestinal: Nondistended. Extremities: Normal range of motion, no deformity. Neurologic: Oriented x4. Psychiatric: Normal mood and affect. Skin: Erythema, edema and tenderness with wound to the top of his right foot. Slight swelling into the right ankle and no abnormalities noted to his right reyez or calf. Progress Results/Orders Reviewed/noted all lab results: Yes Results/Orders Completed Orders - TREASURE CHU APPOINTMENT COORDINATOR Sulfamethox/Trimetho. Ds Tab (Septra Ds (07/21/25 20:30) Ketorolac Trometh 15mg/Ml Vial (Toradol (07/21/25 20:30) Medications Received in ER Medications (Trade) Dose Ordered Sig/Dejon Route PRN Reason Start Time Stop Time Status Last Admin Dose Admin (Septra DS tab) 1 tab ONCE ONCE PO 07/21/25 20:30 07/21/25 20:32 DC 07/21/25 22:39 1 TAB (Toradol injection) 15 mg ONCE ONCE IM 07/21/25 20:30 07/21/25 20:32 DC 07/21/25 22:40 15 MG Vital Signs 07/21/25 07/21/25 20:16 22:46 Temp 98.1 98.6 Pulse 70 68 Resp 20 18 B/P (MAP) 131/72 128/70 Pulse Ox 99 97 Medical Decision Making Additional information obtaine: old records Findings I discussed this case with Dr. Emerson as he saw the patient last night. Physical exam reveals that his right leg does not have any signs of infection although his right foot is red, swollen, tender and there is a wound to the top of his foot. This reason I will treat him with antibiotics. Dr. Emerson agrees with this plan. Gave Toradol for pain relief and 1st dose of antibiotics given in the department. General Diff Dx:Considerations: Include: Other Knee Diff Dx:Considerations: Include: Other Ankle Diff Dx:Considerations: Include: Other Foot Diff Dx:Considerations: Include: Abrasion, Cellulitis, Contusion, Gout, Hematoma, Open fracture, Sprain, Septic Toe Diff Dx:Considerations: Include: Other Departure Disposition: 01 HOME / SELF CARE / HOMELESS Impression: Primary Impression: Chronic leg pain Additional Impression: Wound cellulitis Condition: Stable Discharge Instructions: Cellulitis, Adult Additional Instructions: Take all antibiotics as prescribed. Continue with the specialist follow up with RENATA Johnson for your chronic leg pain. Her back here for any new or worsening symptoms. You can use Tylenol and/or ibuprofen for pain relief at home. Referrals: NO PRIMARY CARE PROVIDER (PCP) Prescriptions Sulfamethoxazole/Trimethoprim (Septra Ds Tab) 800 Mg/160 Mg Tablet 1 TAB PO Q12H for 10 Days, #20 TAB Prov: TREASURE CHU 07/21/25 Education Educated: Patient Educated regarding: diagnosis, treatment, prognosis, need for follow up Additional Comment Medical Screen Exam This patient recieved a medical screening examination. After reviewing the individual's medical complaints with presenting symptoms and performing an appropriate physical examination, it was determined that no immediate life-threa tening emergency medical condition is present. This individual is also not a women having contractions. Signature Scribe Signature: . Attestation: Scribed for Treasure Chu by Treasure Smith NP . 07/21/25 20:39 Parts of this note were created using [employer] voice recognition software program. While efforts were made to correct any mistakes made by this voice recognition software program, nonsensical phrases may remain in this note. In addition, there may be errors and syntax, grammar, content and spelling. TREASURE CHU Jul 21, 2025 20:42
[2025-07-21] MEDS: sulfamethoxazole/trimethoprim DS (800/160mg) tablet PO ONE (22:39)
[2025-07-21] MEDS: ketorolac trometh 15mg/ml vial 15 MG/ML ML IM ONE (22:40)
[2025-07-21 22:46] VITALS: BP 128/70; PULSE 68; RESP 18; TEMP 98.6; O2SAT 97
[2025-07-22] MEDS ORDERED: NAPR-56 PO (18:22)
== END 2025-07-21 22:54 | disposition home or self-care (01) ==
LOC: ER 19:52
DX: L03.115 Cellulitis of right lower limb (principal); G89.29 Other chronic pain; M19.90 Unspecified osteoarthritis, unspecified site; Z88.0 Allergy status to penicillin; Z79.899 Other long term (current) drug therapy; Z98.890 Other specified postprocedural states
CPT/HCPCS: 96372; 99283; J1885

== ENCOUNTER 2025-07-22 16:38 | Emergency (ER) | payer MEDICARE, MEDICAID ==
[~2025-07-22] VITALS: Ht 170.2 cm; Wt 79.5 kg
[~2025-07-22 16:38] MED LIST changes: +SULF1TAB45 PO
[2025-07-22 16:48] VITALS: BP 126/63; PULSE 76; RESP 18; TEMP 98.5; O2SAT 99
--- NOTE | 2025-07-22 17:05 | Physician Documentation ---
History of Present Illness ~ Chief Complaint: Leg Pain Stated Complaint: LEG PAIN Time Seen by MD: 16:59 Primary Medical Doctor: NO PMD HPI This is a 70-year-old male with chronic right leg pain who presents requesting medications for leg pain. Per nursing patient has been called in prescriptions for leg pain though has not picked medications up. Patient reports that he can not afford the four dollar co-pay for the medication, nursing has not informed me that the have spoken to the pharmacy and his co-pay has been waived. Tetanus witin 5 years: Yes Medication Reconciliation Allergies: Coded Allergies: Penicillins (Verified Allergy, Unknown, itching, 07/12/25) Scheduled Cefuroxime Axetil (Cefuroxime), 1 TAB PO Q12H Cephalexin*Monohydrate* (Keflex*), 1 CAP PO QID Folic Acid* (Folic Acid*), 1 MG PO DAILY Furosemide (Furosemide), 1 TAB PO DAILY Gabapentin (Gabapentin), 1 CAP PO Q8H Lactobacillus Rhamnosus (Culturelle), 1 CAP PO DAILY Lidocaine (Lidoderm), 1 PATCH TOP DAILY Multivitamin with Folic Acid (Thera Tablet), 1 EACH PO Q24H Naproxen (Naproxen), 1 TAB PO Q12H Potassium Chloride (Klor-Con 8), 1 TAB PO DAILY Sulfamethoxazole/Trimethoprim (Septra Ds Tab), 1 TAB PO Q12H Tamsulosin Hcl* (Flomax*), 1 CAP PO DAILY, (Reported) Tamsulosin Hcl* (Flomax*), 1 CAP PO DAILY Thiamine Mononitrate (Vitamin B-1), 1 TAB PO DAILY Scheduled PRN Ibuprofen (Ibu), 1 TAB PO Q4HPRN PRN for pain Miscellaneous Medications Home Med List (No Home Medications), (Reported) Past Medical History Past Medical History: Arthritis, Extremity Fracture Past Surgical History: orthopedic surgeries Patient History: Patient reports no known family medical history. Drug Use: none Lives In: Home Review of Systems ROS As stated above in the HPI, otherwise all systems are reviewed and negative. Physical Exam Vital Signs: Temperature: 98.5, Source: Temporal, Heart Rate: 76, Respiratory Rate: 18, BP: 126/63, Pulse Oximetry: 99, Weight: 79.550 Oxygen Flow Rate: 0 Physical Exam VITALS: Reviewed and as above. GENERAL: Alert, nontoxic appearing, no apparent distress. RESPIRATORY: No increased work of breathing, no respiratory distress, speaking in full clear sentences Progress Results/Orders Results/Orders Completed Orders - EJ BARNETT PARK RECREATION MANAGER Ketorolac Trometh 15mg/Ml Vial (Toradol (07/22/25 18:20) Vital Signs 07/22/25 16:48 Temp 98.5 Pulse 76 Resp 18 B/P (MAP) 126/63 Pulse Ox 99 O2 Flow Rate 0 Medical Decision Making Additional information obtaine: old records Findings This 70-year-old male with a history of chronic right leg pain presented to the emergency department requesting pain medication products right leg pain, patient reported no other acute symptoms or concerns. MSE performed in triage and patient returned to ED lobby by nursing staff to await available ED room. As patient reports no new symptoms or concerns he will be treated for chronic right leg pain with a dose of Toradol today and discharged on a course of naproxen to follow up with the [facility] or his primary care for long-term management of chronic right lower leg pain. Patient is otherwise well-appearing and approp riate for outpatient follow up. General Diff Dx:Considerations: Include: Contusion, Fracture, Neurovascular injury, Sprain Knee Diff Dx:Considerations: Include: Gout, Meniscus injury, Septic, Sprain Ankle Diff Dx:Considerations: Include: Gout, Laceration, Neurovascular injury Foot Diff Dx:Considerations: Unlikely: Abrasion, Arthritis, Cellulitis, Contusion, Dislocation, DJD, Fracture-metatarsal, Fracture-phalynx, Fracture- tarsal, Gout, Hematoma, Ingrown toenail, Laceration, Malunion, Neurovascular injury, Open fracture, Paronychia, Puncture, Rheumatoid, Sprain, Septic, Subungual hematoma, Ulcer, Other Toe Diff Dx:Considerations: Unlikely: Abrasion, Cellulitis, Contusion, Dislocation, Felon, Fracture, Hematoma, Laceration, Neurovascular injury, Open fracture, Paronychia, Subungual hematoma, Other Departure Time of Disposition: 18:24 Disposition: 01 HOME / SELF CARE / HOMELESS Impression: Primary Impression: Chronic pain of right lower extremity Condition: Improved Additional Instructions: Follow up as previously scheduled with any specialists you are seeing for your chronic leg pain otherwise follow up with primary care provider and or the [facility]. Take All medications as previously prescribed, please use the prescribed naproxen for chronic pain until you can follow up with your primary care or [facility].. Please follow up with your primary care provider in the next few days. Please return to the emergency department for any new or worsening concerning symptoms. Referrals: NO PRIMARY CARE PROVIDER (PCP) Prescriptions Naproxen (Naproxen) 500 Mg Tablet 1 TAB PO Q12H, #20 TAB Prov: EJ BARNETT 07/22/25 Education Educated: Patient Educated regarding: diagnosis, treatment, prognosis, need for follow up Signature Scribe Signature: No scribe Attestation: The note accurately reflects work and decisions made by me.CRIS Walker 07/23/25 00:51 EJ BARNETT Jul 22, 2025 17:05
[2025-07-22] MEDS ORDERED: ketorolac trometh 15mg/ml vial 15 MG/ML ML IM ONE (18:20)
[2025-07-22] MEDS ORDERED: NAPR-56 PO (18:22)
== END 2025-07-22 19:22 | disposition left against medical advice (07) ==
LOC: ER 16:40
DX: G89.29 Other chronic pain (principal); M79.604 Pain in right leg; Z88.0 Allergy status to penicillin; Z88.8 Allergy status to other drugs, medicaments and biological substances
CPT/HCPCS: 99283

== ENCOUNTER 2025-07-25 03:11 | Emergency (ER) | payer MEDICARE, MEDICAID ==
[~2025-07-25] VITALS: Ht 170.2 cm; Wt 80.0 kg
[~2025-07-25 03:11] MED LIST changes: +NAPR-56 PO
[2025-07-25] MEDS: ibuprofen tablet 400 MG TABLET PO ONE (03:38)
[2025-07-25] MEDS ORDERED: IBUP-1984 PO (03:39)
--- NOTE | 2025-07-25 03:39 | Physician Documentation ---
HPI ~ General Chief Complaint: Medication Request Stated Complaint: LEG PAIN Time Seen by MD: 03:35 Primary Medical Doctor: NO PMD History of Present Illness HPI Comments Patient presents to the emergency room with right leg pain. He received a Toradol injection about a week ago and has been back every night ever since. Medication Reconciliation Allergies: Coded Allergies: Penicillins (Verified Allergy, Unknown, itching, 07/12/25) Scheduled Cefuroxime Axetil (Cefuroxime), 1 TAB PO Q12H Cephalexin*Monohydrate* (Keflex*), 1 CAP PO QID Folic Acid* (Folic Acid*), 1 MG PO DAILY Furosemide (Furosemide), 1 TAB PO DAILY Gabapentin (Gabapentin), 1 CAP PO Q8H Lactobacillus Rhamnosus (Culturelle), 1 CAP PO DAILY Lidocaine (Lidoderm), 1 PATCH TOP DAILY Multivitamin with Folic Acid (Thera Tablet), 1 EACH PO Q24H Naproxen (Naproxen), 1 TAB PO Q12H Potassium Chloride (Klor-Con 8), 1 TAB PO DAILY Sulfamethoxazole/Trimethoprim (Septra Ds Tab), 1 TAB PO Q12H Tamsulosin Hcl* (Flomax*), 1 CAP PO DAILY, (Reported) Tamsulosin Hcl* (Flomax*), 1 CAP PO DAILY Thiamine Mononitrate (Vitamin B-1), 1 TAB PO DAILY Scheduled PRN Ibuprofen (Ibu), 1 TAB PO Q4HPRN PRN for pain Miscellaneous Medications Home Med List (No Home Medications), (Reported) Past Medical History Past Medical History: Arthritis, Extremity Fracture Past Surgical History: orthopedic surgeries Patient History: Patient reports no known family medical history. Drug Use: none Lives In: Home Review of Systems ROS All review of systems negative except as per HPI Physical Exam Physical Exam Vital Signs: Temperature: 98.0, Heart Rate: 75, Respiratory Rate: 16, BP: 118/93, Pulse Oximetry: 98, Weight: 80.000 Oxygen Flow Rate: 0 Physical Exam General: Patient is awake, alert, oriented x4 in no acute distress. Appears intoxicated Head: Normocephalic and atraumatic. Eyes: Conjunctival normal. EOMI. PERRL. ENT: Mucous membranes moist. Neck: Supple, trachea is midline. Chest: Clear to auscultation bilaterally without rales, rhonchi, or wheezes. There is no accessory muscle use or retractions. Extremities: Normal strength. Normal range of motion. No deformities or edema. Ambulatory without issue Progress Results/Orders Results/Orders Vital Signs 07/25/25 03:31 Temp 98.0 Pulse 75 Resp 16 B/P (MAP) 118/93 Pulse Ox 98 O2 Flow Rate 0 Medical Decision Making Additional information obtaine: old records Findings Patient presents to the emergency room with chief complaint of leg pain as per HPI. Differentials include but are not limited to fractures, dislocations, soft tissue injury, infection. That has patient is continuing to come to the emergency room requesting Toradol shot I will treat him with pills. This is to encourage him to not use the ER inappropriately. I will also give him a prescription Differential Dx:Considerations: Include: Adverse circumstances, Economic, Psychosocial, Medical services unavail., Medication refill, Medication non-comp liance, Other Departure Disposition: HOME / SELF CARE / HOMELESS Impression: Primary Impression: Chronic leg pain Condition: Stable Discharge Instructions: RICE Therapy for Routine Care of Injuries Additional Instructions: I am working the next two nights. You will not get any Toradol injections if I am on-call. I am giving you a prescription for ibuprofen which has pill form of Toradol. Referrals: NO PRIMARY CARE PROVIDER (PCP) Prescriptions Ibuprofen* (Motrin*) 400 Mg Tablet 800 MG PO Q8H, #30 TAB Prov: RUSS JEONG MD 07/25/25 Signature Scribe Signature: No scribe Attestation: The note accurately reflects work and decisions made by me.Russ Jeong MD 07/25/25 03:39 RUSS JEONG MD Jul 25, 2025 03:39
[2025-07-25 03:54] VITALS: BP 116/90; PULSE 74; RESP 18; TEMP 98.6; O2SAT 99
== END 2025-07-25 03:55 | disposition home or self-care (01) ==
LOC: ER 03:11
DX: G89.29 Other chronic pain (principal); M79.604 Pain in right leg; M19.90 Unspecified osteoarthritis, unspecified site; Z88.0 Allergy status to penicillin; Z88.8 Allergy status to other drugs, medicaments and biological substances
CPT/HCPCS: 99283

== ENCOUNTER 2025-07-27 01:21 | Emergency (ER) | payer MEDICARE, MEDICAID ==
[~2025-07-27 01:21] MED LIST changes: +IBUP-1984 PO
[2025-07-27 01:25] VITALS: BP 156/98; PULSE 98; RESP 15; TEMP 96.3; O2SAT 99
--- NOTE | 2025-07-27 04:18 | Physician Documentation ---
History of Present Illness ~ Chief Complaint: Leg Pain Stated Complaint: LEG PAIN Time Seen by MD: 04:14 Primary Medical Doctor: NO PMD HPI Patient presents to the emergency room in usual fashion requesting a Toradol shot for his chronic leg pain. I have seen this patient is a few times this week always with the same complaint. I told him that has he would no longer be giving him Toradol injections and I gave him some ibuprofen last night when a prescription for ibuprofen. He has failed to fill his prescription Tetanus witin 5 years: Yes Medication Reconciliation Allergies: Coded Allergies: Penicillins (Verified Allergy, Unknown, itching, 07/27/25) Scheduled Cefuroxime Axetil (Cefuroxime), 1 TAB PO Q12H Cephalexin*Monohydrate* (Keflex*), 1 CAP PO QID Folic Acid* (Folic Acid*), 1 MG PO DAILY Furosemide (Furosemide), 1 TAB PO DAILY Gabapentin (Gabapentin), 1 CAP PO Q8H Ibuprofen* (Motrin*), 800 MG PO Q8H Lactobacillus Rhamnosus (Culturelle), 1 CAP PO DAILY Lidocaine (Lidoderm), 1 PATCH TOP DAILY Multivitamin with Folic Acid (Thera Tablet), 1 EACH PO Q24H Naproxen (Naproxen), 1 TAB PO Q12H Potassium Chloride (Klor-Con 8), 1 TAB PO DAILY Sulfamethoxazole/Trimethoprim (Septra Ds Tab), 1 TAB PO Q12H Tamsulosin Hcl* (Flomax*), 1 CAP PO DAILY, (Reported) Thiamine Mononitrate (Vitamin B-1), 1 TAB PO DAILY Scheduled PRN Ibuprofen (Ibu), 1 TAB PO Q4HPRN PRN for pain Miscellaneous Medications Home Med List (No Home Medications), (Reported) Discontinued Medications Tamsulosin Hcl* (Flomax*), 1 CAP PO DAILY Discontinued Reason: Auto Discontinued Past Medical History Past Medical History: Arthritis, Extremity Fracture Past Surgical History: orthopedic surgeries Patient History: Patient reports no known family medical history. Drug Use: none Lives In: Home Review of Systems ROS All review of systems negative except as per HPI Physical Exam Vital Signs: Temperature: 96.3, Source: Temporal, Heart Rate: 98, Respiratory Rate: 15, BP: 156/98, Pulse Oximetry: 99 General Appearance General: Patient is awake, alert, oriented x4 in no acute distress. Appears intoxicated Head: Normocephalic and atraumatic. Eyes: Conjunctival normal. EOMI. PERRL. ENT: Mucous membranes moist. Neck: Supple, trachea is midline. Chest: Clear to auscultation bilaterally without rales, rhonchi, or wheezes. There is no accessory muscle use or retractions. Cardiac: RRR without murmurs, gallops, or rubs. Neuro: Cranial nerves II-XII grossly intact. No focal neuro deficits. Patient ambulating without difficulty. Progress Results/Orders Results/Orders Vital Signs 07/27/25 01:25 Temp 96.3 Pulse 98 Resp 15 B/P (MAP) 156/98 Pulse Ox 99 Medical Decision Making Additional information obtaine: old records Findings Patient presents to the emergency room requesting Toradol injection. He is abusing our system. 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 I am hoping his pain will encourage him to go fill up his prescription. General Diff Dx:Considerations: Include: Abrasion, Contusion, Fracture, Hematoma, Laceration, Malunion, Neurovascular injury, Open fracture, Sprain, Ulcer, Other Knee Diff Dx:Considerations: Include: Abrasion, Arthritis, Contusion, DJD, Fracture-femur, Fracture-fibula, Fracture-patella, Fracture-tibia, Gout, Hematoma, Laceration, Meniscus injury, Neurovascular injury, Open fracture, Rheumatoid arthritis, Septic, Sprain, Sprain-MCL, Sprain-LCL, Sprain-ACL, Sprain-PCL, Other Ankle Diff Dx:Considerations: Include: Abrasion, Arthritis, Contusion, DJD, Fracture-metatarsal, Fracture-fibula, Fracture-tarsal, Fracture-tibia, Gout, Hematoma, Laceration, Malunion, Neurovascular injury, Nonunion, Open fracture, Osteomyelitis, Rheumatoid arthritis, Sprain, Septic, Ulcer, Other Foot Diff Dx:Considerations: Include: Abrasion, Arthritis, Cellulitis, Contusion, Dislocation, DJD, Fracture-metatarsal, Fracture-phalynx, Fracture- tarsal, Gout, Hematoma, Ingrown toenail, Laceration, Malunion, Neurovascular injury, Open fracture, Paronychia, Puncture, Rheumatoid, Sprain, Septic, Subungual hematoma, Ulcer, Other Toe Diff Dx:Considerations: Include: Abrasion, Cellulitis, Contusion, Dislocation, Felon, Fracture, Hematoma, Laceration, Neurovascular injury, Open fracture, Paronychia, Subungual hematoma, Other Departure Disposition: 01 HOME / SELF CARE / HOMELESS Impression: Primary Impression: Chronic leg pain Additional Impression: Noncompliance with medications Condition: Stable Discharge Instructions: Chronic Pain, Adult Additional Instructions: I encouraged you to fill your prescription as it will help Referrals: NO PRIMARY CARE PROVIDER (PCP) Signature Scribe Signature: no scribe Attestation: The note accurately reflects work and decisions made by me.Russ Jeong MD 07/27/25 04:18 RUSS JEOGN MD Jul 27, 2025 04:18
== END 2025-07-27 04:19 | disposition home or self-care (01) ==
LOC: ER 01:23
DX: G89.29 Other chronic pain (principal); M79.605 Pain in left leg; M19.90 Unspecified osteoarthritis, unspecified site; Z88.0 Allergy status to penicillin; Z79.899 Other long term (current) drug therapy; Z98.890 Other specified postprocedural states; Z91.148 Patient's other noncompliance with medication regimen for other reason
CPT/HCPCS: 99282

== ENCOUNTER 2025-07-29 05:22 | Emergency (ER) | payer MEDICARE, MEDICAID ==
[~2025-07-29] VITALS: Ht 170.2 cm; Wt 80.0 kg
[2025-07-29 05:24] VITALS: BP 140/78; PULSE 69; RESP 18; TEMP 98; O2SAT 100
--- NOTE | 2025-07-29 09:25 | Physician Documentation ---
History of Present Illness ~ Chief Complaint: Leg Pain Stated Complaint: LEG PAIN Time Seen by MD: 09:08 Primary Medical Doctor: NO PMD Source: patient Mode of Arrival: Ambulatory Exam Limitations: no limitations HPI 70-year-old male at ER complaining of left lower extremity nerve pain. Patient has been here multiple times this week. Patient is requesting Toradol. Patient also requesting methadone. No obvious trauma or falls nerve pain appears to be chronic. Tetanus witin 5 years: Yes Medication Reconciliation Allergies: Coded Allergies: Penicillins (Verified Allergy, Unknown, itching, 07/27/25) Scheduled Cefuroxime Axetil (Cefuroxime), 1 TAB PO Q12H Cephalexin*Monohydrate* (Keflex*), 1 CAP PO QID Folic Acid* (Folic Acid*), 1 MG PO DAILY Furosemide (Furosemide), 1 TAB PO DAILY Gabapentin (Gabapentin), 1 CAP PO Q8H Ibuprofen* (Motrin*), 800 MG PO Q8H Lactobacillus Rhamnosus (Culturelle), 1 CAP PO DAILY Lidocaine (Lidoderm), 1 PATCH TOP DAILY Multivitamin with Folic Acid (Thera Tablet), 1 EACH PO Q24H Naproxen (Naproxen), 1 TAB PO Q12H Potassium Chloride (Klor-Con 8), 1 TAB PO DAILY Sulfamethoxazole/Trimethoprim (Septra Ds Tab), 1 TAB PO Q12H Tamsulosin Hcl* (Flomax*), 1 CAP PO DAILY, (Reported) Thiamine Mononitrate (Vitamin B-1), 1 TAB PO DAILY Scheduled PRN Ibuprofen (Ibu), 1 TAB PO Q4HPRN PRN for pain Miscellaneous Medications Home Med List (No Home Medications), (Reported) Discontinued Medications Tamsulosin Hcl* (Flomax*), 1 CAP PO DAILY Discontinued Reason: Auto Discontinued Past Medical History Past Medical History: No Pertinent History, Arthritis, Extremity Fracture Past Surgical History: orthopedic surgeries Patient History: Patient reports no known family medical history. Drug Use: none Lives In: Home Occupation: disabled Review of Systems All Other Systems at this time: Reviewed and Negative Musculoskeletal: Reports: see HPI Physical Exam Vital Signs: RN Vital Signs have been reviewed: Yes, Temperature: 98.0, Heart Rate: 69, Respiratory Rate: 18, BP: 140/78, Pulse Oximetry: 100, Weight: 80.000 Physical Exam General: Alert, no apparent distress. HEENT: moist mucous membranes. Neck: Full range of motion. Respiratory: No respiratory distress speaking in full sentences Chest: No accessory muscle use. Cardiovascular: Appears well perfused Neurologic: Oriented x4. Extremity: Left lower extremity without signs of injury. Full range of motion Psychiatric: Normal mood and affect. Disheveled Skin: Normal color, warm and dry. No edema, no ecchymosis. Progress Results/Orders Results/Orders Vital Signs 07/29/25 05:24 Temp 98.0 Pulse 69 Resp 18 B/P (MAP) 140/78 Pulse Ox 100 Medical Decision Making Additional information obtaine: old records Findings Old records indicate patient has been here on the and the for Toradol shot. Discussed with patient implications for the shot and monitoring kidney function. Offered ibuprofen as well as even gabapentin to help with nerve pain. Patient was unhappy and wanted me to give him a Toradol shot. Patient later eloped prior to receiving treatment General Diff Dx:Considerations: Include: Other Knee Diff Dx:Considerations: Unlikely: Abrasion, Arthritis, Contusion, DJD, Fracture-femur, Fracture-fibula, Fracture-patella, Fracture-tibia, Gout, Hematoma, Laceration, Meniscus injury, Neurovascular injury, Open fracture, Rheumatoid arthritis, Septic, Sprain, Sprain-MCL, Sprain-LCL, Sprain-ACL, Sprain-PCL, Other Ankle Diff Dx:Considerations: Unlikely: Abrasion, Arthritis, Contusion, DJD, Fracture-metatarsal, Fracture-fibula, Fracture-tarsal, Fracture-tibia, Gout, Hematoma, Laceration, Malunion, Neurovascular injury, Nonunion, Open fracture, Osteomyelitis, Rheumatoid arthritis, Sprain, Septic, Ulcer, Other Foot Diff Dx:Considerations: Unlikely: Abrasion, Arthritis, Cellulitis, Contusion, Dislocation, DJD, Fracture-metatarsal, Fracture-phalynx, Fracture- tarsal, Gout, Hematoma, Ingrown toenail, Laceration, Malunion, Neurovascular injury, Open fracture, Paronychia, Puncture, Rheumatoid, Sprain, Septic, Subungual hematoma, Ulcer, Other Toe Diff Dx:Considerations: Unlikely: Abrasion, Cellulitis, Contusion, Dislocation, Felon, Fracture, Hematoma, Laceration, Neurovascular injury, Open fracture, Paronychia, Subungual hematoma, Other Departure Time of Disposition: 09:24 Disposition: 01 HOME / SELF CARE / HOMELESS Impression: Primary Impression: Chronic leg pain Condition: Stable Referrals: NO PRIMARY CARE PROVIDER (PCP) Education Educated: Patient Educated regarding: diagnosis, treatment, need for follow up Signature Scribe Signature: No scribe Attestation: The note accurately reflects work and decisions made by me.Bea LYNCH 07/29/25 09:24 BEA SNOW NP Jul 29, 2025 09:25
== END 2025-07-29 11:48 | disposition left against medical advice (07) ==
LOC: ER 05:23
DX: G89.29 Other chronic pain (principal); M79.605 Pain in left leg; Z88.0 Allergy status to penicillin; Z79.899 Other long term (current) drug therapy; Z98.890 Other specified postprocedural states
CPT/HCPCS: 99282; A6590

== ENCOUNTER 2025-08-01 22:18 | Emergency (ER) | payer MEDICARE, MEDICAID ==
[~2025-08-01] VITALS: Ht 170.2 cm; Wt 70.0 kg
--- NOTE | 2025-08-01 23:25 | Physician Documentation ---
History of Present Illness ~ Chief Complaint: Leg Pain Stated Complaint: LEG PAIN Time Seen by MD: 23:20 Primary Medical Doctor: NO PMD HPI Patient returns to the ED for ongoing visits related to his chronic leg pain. He has received multiple toradol shots recently for the same syptoms. Denies any acute injury. Day of Onset: Aug 01, 2025 Tetanus emmain 5 years: Yes Medication Reconciliation Allergies: Coded Allergies: Penicillins (Verified Allergy, Unknown, itching, 08/01/25) Scheduled Cefuroxime Axetil (Cefuroxime), 1 TAB PO Q12H Cephalexin*Monohydrate* (Keflex*), 1 CAP PO QID Folic Acid* (Folic Acid*), 1 MG PO DAILY Furosemide (Furosemide), 1 TAB PO DAILY Gabapentin (Gabapentin), 1 CAP PO Q8H Ibuprofen* (Motrin*), 800 MG PO Q8H Lactobacillus Rhamnosus (Culturelle), 1 CAP PO DAILY Lidocaine (Lidoderm), 1 PATCH TOP DAILY Multivitamin with Folic Acid (Thera Tablet), 1 EACH PO Q24H Naproxen (Naproxen), 1 TAB PO Q12H Potassium Chloride (Klor-Con 8), 1 TAB PO DAILY Tamsulosin Hcl* (Flomax*), 1 CAP PO DAILY, (Reported) Thiamine Mononitrate (Vitamin B-1), 1 TAB PO DAILY Scheduled PRN Ibuprofen (Ibu), 1 TAB PO Q4HPRN PRN for pain Miscellaneous Medications Home Med List (No Home Medications), (Reported) Discontinued Medications Sulfamethoxazole/Trimethoprim (Septra Ds Tab), 1 TAB PO Q12H Discontinued Reason: Auto Discontinued Tamsulosin Hcl* (Flomax*), 1 CAP PO DAILY Discontinued Reason: Auto Discontinued Past Medical History Past Medical History: No Pertinent History, Arthritis, Extremity Fracture Past Surgical History: orthopedic surgeries Patient History: Patient reports no known family medical history. Drug Use: none Lives In: Home Occupation: disabled Review of Systems All Other Systems at this time: Reviewed and Negative ROS As stated above in the HPI, otherwise all systems are reviewed and negative. Physical Exam Vital Signs: Temperature: 97.0, Source: Temporal, Heart Rate: 54, Respiratory Rate: 14, BP: 137/83, Pulse Oximetry: 94, Weight: 70.000 Physical Exam General: Alert, no apparent distress. Extremities: Normal range of motion, no deformity. Neurologic: Oriented x4. Psychiatric: Normal mood and affect. Skin: Normal color, warm and dry. No edema, no ecchymosis. 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 I will give him a pill of Tylenol to help with pain General Diff Dx:Considerations: Include: Abrasion, Contusion, Fracture, Hematoma, Laceration, Malunion, Neurovascular injury, Open fracture, Sprain, Ulcer, Other Knee Diff Dx:Considerations: Unlikely: Abrasion, Arthritis, Contusion, DJD, Fracture-femur, Fracture-fibula, Fracture-patella, Fracture-tibia, Gout, Hematoma, Laceration, Meniscus injury, Neurovascular injury, Open fracture, Rheumatoid arthritis, Septic, Sprain, Sprain-MCL, Sprain-LCL, Sprain-ACL, Sprain-PCL, Other Ankle Diff Dx:Considerations: Unlikely: Abrasion, Arthritis, Contusion, DJD, Fracture-metatarsal, Fracture-fibula, Fracture-tarsal, Fracture-tibia, Gout, Hematoma, Laceration, Malunion, Neurovascular injury, Nonunion, Open fracture, Osteomyelitis, Rheumatoid arthritis, Sprain, Septic, Ulcer, Other Foot Diff Dx:Considerations: Unlikely: Abrasion, Arthritis, Cellulitis, Contusion, Dislocation, DJD, Fracture-metatarsal, Fracture-phalynx, Fracture- tarsal, Gout, Hematoma, Ingrown toenail, Laceration, Malunion, Neurovascular injury, Open fracture, Paronychia, Puncture, Rheumatoid, Sprain, Septic, Subungual hematoma, Ulcer, Other Toe Diff Dx:Considerations: Unlikely: Abrasion, Cellulitis, Contusion, Dislocation, Felon, Fracture, Hematoma, Laceration, Neurovascular injury, Open fracture, Paronychia, Subungual hematoma, Other Departure Disposition: 01 HOME / SELF CARE / HOMELESS Impression: Primary Impression: Chronic pain of left lower extremity Condition: Stable Referrals: NO PRIMARY CARE PROVIDER (PCP) Signature Scribe Signature: h Attestation: Scribed for Parth Trevizo Radio/Tv Technician by Parth Smith NP . 08/02/25 13:34 PARTH TREVIZO NP Aug 01, 2025 23:25
[2025-08-01 23:45] VITALS: BP 136/88; PULSE 80; RESP 18; TEMP 97.8; O2SAT 99
== END 2025-08-01 23:47 | disposition home or self-care (01) ==
LOC: ER 22:19
DX: G89.29 Other chronic pain (principal); M79.605 Pain in left leg; M19.90 Unspecified osteoarthritis, unspecified site; Z88.0 Allergy status to penicillin; Z79.899 Other long term (current) drug therapy
CPT/HCPCS: 99283

== ENCOUNTER 2025-08-04 05:45 | Emergency (ER) | payer MEDICARE, MEDICAID ==
[~2025-08-04] VITALS: Ht 170.2 cm; Wt 58.0 kg
[~2025-08-04 05:45] MED LIST changes: -SULF1TAB45 PO
[2025-08-04 06:01] VITALS: BP 130/90; PULSE 74; RESP 17; TEMP 96.8; O2SAT 99
--- NOTE | 2025-08-04 08:23 | Physician Documentation ---
History of Present Illness ~ Chief Complaint: Leg Pain Stated Complaint: LEG PAIN Time Seen by MD: 08:17 Primary Medical Doctor: NO PMD HPI 70-year-old male presenting with chronic left leg pain. The patient has been seen here in the emergency department multiple times including every several days this month. He has chronic left leg pain and always requests pain medication for this. Here today, he reports the same pain. He denies any new or different symptoms. He tells me that he gets paid on Wednesday and he will be able to get ibuprofen and gabapentin. He requests a Toradol shot. No other complaints or requests. Tetanus witin 5 years: Yes Medication Reconciliation Allergies: Coded Allergies: Penicillins (Verified Allergy, Unknown, itching, 08/04/25) Scheduled Cefuroxime Axetil (Cefuroxime), 1 TAB PO Q12H Cephalexin*Monohydrate* (Keflex*), 1 CAP PO QID Folic Acid* (Folic Acid*), 1 MG PO DAILY Furosemide (Furosemide), 1 TAB PO DAILY Gabapentin (Gabapentin), 1 CAP PO Q8H Ibuprofen* (Motrin*), 800 MG PO Q8H Lactobacillus Rhamnosus (Culturelle), 1 CAP PO DAILY Lidocaine (Lidoderm), 1 PATCH TOP DAILY Multivitamin with Folic Acid (Thera Tablet), 1 EACH PO Q24H Naproxen (Naproxen), 1 TAB PO Q12H Potassium Chloride (Klor-Con 8), 1 TAB PO DAILY Tamsulosin Hcl* (Flomax*), 1 CAP PO DAILY, (Reported) Thiamine Mononitrate (Vitamin B-1), 1 TAB PO DAILY Scheduled PRN Ibuprofen (Ibu), 1 TAB PO Q4HPRN PRN for pain Miscellaneous Medications Home Med List (No Home Medications), (Reported) Discontinued Medications Sulfamethoxazole/Trimethoprim (Septra Ds Tab), 1 TAB PO Q12H Discontinued Reason: Auto Discontinued Past Medical History Past Medical History: No Pertinent History, Arthritis, Extremity Fracture Past Surgical History: orthopedic surgeries Patient History: Patient reports no known family medical history. Drug Use: none Lives In: Home Occupation: disabled Review of Systems Constitutional: Denies: fever Musculoskeletal: Reports: pain Physical Exam Vital Signs: Temperature: 96.8, Source: Temporal, Heart Rate: 74, Respiratory Rate: 17, BP: 130/90, Pulse Oximetry: 99, Weight: 58.000 Physical Exam General: This is a disheveled middle-aged man, calm and cooperative Heart: Regular rate, normal-appearing peripheral perfusion Lungs: normal work of breathing, normal oxygen saturation on room air Extremities: Warm and well-perfused, no significant edema or acute skin changes Neuro: Alert and oriented Psychiatric: Calm and cooperative with exam Progress Results/Orders Results/Orders Orders - BECCA GORDON MD Ketorolac Trometh 15mg/Ml Vial (Toradol (08/04/25 08:20) Vital Signs 08/04/25 06:01 Temp 96.8 Pulse 74 Resp 17 B/P (MAP) 130/90 Pulse Ox 99 Medical Decision Making Additional information obtaine: old records Findings Reviewed multiple past ER visit General Diff Dx:Considerations: Include: Fracture Knee Diff Dx:Considerations: Include: Abrasion Ankle Diff Dx:Considerations: Include: Contusion Foot Diff Dx:Considerations: Include: DJD Toe Diff Dx:Considerations: Include: Hematoma Additional Comment The patient presents with chronic leg pain. He has no other new or acute complaints. He has been seen multiple times in the past for similar. His only request is for Toradol. 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 He was given a dose of Toradol and discharged. Departure Time of Disposition: 08:22 Disposition: 01 HOME / SELF CARE / HOMELESS Impression: Primary Impression: Chronic leg pain Condition: Stable Referrals: NO PRIMARY CARE PROVIDER (PCP) Education Educated: Patient Educated regarding: need for follow up Signature Scribe Signature: na Attestation: BECCA Rios MD Aug 04, 2025 08:23
[2025-08-04] MEDS: ketorolac trometh 15mg/ml vial 15 MG/ML ML IM ONE (08:36)
== END 2025-08-04 08:36 | disposition home or self-care (01) ==
LOC: ER 05:45
DX: G89.29 Other chronic pain (principal); M79.605 Pain in left leg; M19.90 Unspecified osteoarthritis, unspecified site; Z88.0 Allergy status to penicillin; Z79.899 Other long term (current) drug therapy
CPT/HCPCS: 99282

== ENCOUNTER 2025-08-05 21:49 | Emergency (ER) | payer MEDICARE, MEDICAID ==
[~2025-08-05] VITALS: Ht 170.2 cm; Wt 58.0 kg
--- NOTE | 2025-08-05 22:10 | Physician Documentation ---
History of Present Illness ~ General Stated Complaint: LEG PAIN Time Seen by MD: 22:03 Primary Medical Doctor: NO PMD Source: patient Mode of Arrival: Ambulatory Exam Limitations: no limitations History of Present Illness Initial Comments 70-year-old male with chronic leg pain checking into the emergency department for a Toradol shot. No acute concerns. Patient states that he can not get his medications due to a co-pay. Medication Reconciliation Allergies: Coded Allergies: Penicillins (Verified Allergy, Unknown, itching, 08/04/25) Scheduled Cefuroxime Axetil (Cefuroxime), 1 TAB PO Q12H Cephalexin*Monohydrate* (Keflex*), 1 CAP PO QID Folic Acid* (Folic Acid*), 1 MG PO DAILY Furosemide (Furosemide), 1 TAB PO DAILY Gabapentin (Gabapentin), 1 CAP PO Q8H Ibuprofen* (Motrin*), 800 MG PO Q8H Lactobacillus Rhamnosus (Culturelle), 1 CAP PO DAILY Lidocaine (Lidoderm), 1 PATCH TOP DAILY Multivitamin with Folic Acid (Thera Tablet), 1 EACH PO Q24H Naproxen (Naproxen), 1 TAB PO Q12H Potassium Chloride (Klor-Con 8), 1 TAB PO DAILY Tamsulosin Hcl* (Flomax*), 1 CAP PO DAILY, (Reported) Thiamine Mononitrate (Vitamin B-1), 1 TAB PO DAILY Scheduled PRN Ibuprofen (Ibu), 1 TAB PO Q4HPRN PRN for pain Miscellaneous Medications Home Med List (No Home Medications), (Reported) Discontinued Medications Sulfamethoxazole/Trimethoprim (Septra Ds Tab), 1 TAB PO Q12H Discontinued Reason: Auto Discontinued Past Medical History Past Medical History: No Pertinent History, Arthritis, Extremity Fracture Past Surgical History: orthopedic surgeries Patient History: Patient reports no known family medical history. Drug Use: none Lives In: Home Occupation: disabled Review of Systems All Other Systems at this time: Reviewed and Negative Musculoskeletal: Reports: see HPI Physical Exam Physical Exam Physical Exam General: Alert, no apparent distress. HEENT: moist mucous membranes. Neck: Full range of motion. Respiratory: No respiratory distress speaking in full sentences Chest: No accessory muscle use. Cardiovascular: Appears well perfused Neurologic: Oriented x4. Psychiatric: Normal mood and affect. Skin: Normal color, warm and dry. No edema, no ecchymosis. Medical Decision Making Additional information obtaine: old records Findings Patient was last seen in the emergency department yesterday received 15 mg of Toradol. Educated on the importance of reducing Toradol injections due to reduced kidney function. 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 Differential Diagnosis Chronic pain drug-seeking Departure Time of Disposition: 22:08 Disposition: 01 HOME / SELF CARE / HOMELESS Impression: Primary Impression: Left leg pain Condition: Stable Additional Instructions: Follow up with primary care urgent care [facility]. 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
[2025-08-05] MEDS: ibuprofen tablet 400 MG TABLET PO ONE (22:54)
[2025-08-05 22:57] VITALS: BP 145/70; PULSE 78; RESP 18; TEMP 98.6; O2SAT 99
== END 2025-08-05 22:57 | disposition home or self-care (01) ==
LOC: ER 21:49
DX: M79.605 Pain in left leg (principal); G89.29 Other chronic pain; M19.90 Unspecified osteoarthritis, unspecified site; Z88.0 Allergy status to penicillin; Z79.899 Other long term (current) drug therapy; Z98.890 Other specified postprocedural states
CPT/HCPCS: 99283

== ENCOUNTER 2025-08-09 09:07 | Emergency (ER) | payer MEDICARE, MEDICAID ==
[~2025-08-09] VITALS: Ht 172.7 cm; Wt 72.7 kg
[2025-08-09 09:24] VITALS: BP 177/141; PULSE 81; RESP 18; TEMP 97.6; O2SAT 90
--- NOTE | 2025-08-09 09:35 | Physician Documentation ---
History of Present Illness ~ Chief Complaint: Leg Pain Stated Complaint: R LEG PAIN Time Seen by MD: 09:34 Primary Medical Doctor: NO PMD HPI Patient is a 62-year-old male that presents to the emergency department for evaluation of right lower extremity pain. Patient has had this pain chronically. Patient reports frequently for evaluation of this leg. There are currently no changes to the patient's lower extremity. Patient reports that it is cold outside in the cold bothers his leg. No fever chills nausea vomiting diarrhea reported at this time. No other symptoms reported at this time. Tetanus witin 5 years: Yes Medication Reconciliation Allergies: Coded Allergies: Penicillins (Verified Allergy, Unknown, itching, 08/09/25) Scheduled Cefuroxime Axetil (Cefuroxime), 1 TAB PO Q12H Cephalexin*Monohydrate* (Keflex*), 1 CAP PO QID Folic Acid* (Folic Acid*), 1 MG PO DAILY Furosemide (Furosemide), 1 TAB PO DAILY Gabapentin (Gabapentin), 1 CAP PO Q8H Ibuprofen* (Motrin*), 800 MG PO Q8H Lactobacillus Rhamnosus (Culturelle), 1 CAP PO DAILY Lidocaine (Lidoderm), 1 PATCH TOP DAILY Multivitamin with Folic Acid (Thera Tablet), 1 EACH PO Q24H Naproxen (Naproxen), 1 TAB PO Q12H Potassium Chloride (Klor-Con 8), 1 TAB PO DAILY Tamsulosin Hcl* (Flomax*), 1 CAP PO DAILY, (Reported) Thiamine Mononitrate (Vitamin B-1), 1 TAB PO DAILY Scheduled PRN Ibuprofen (Ibu), 1 TAB PO Q4HPRN PRN for pain Miscellaneous Medications Home Med List (No Home Medications), (Reported) Past Medical History Past Medical History: No Pertinent History, Arthritis, Extremity Fracture Past Surgical History: orthopedic surgeries Patient History: Patient reports no known family medical history. Drug Use: none Lives In: Home Occupation: disabled Physical Exam Vital Signs: Temperature: 97.6, Source: Temporal, Heart Rate: 81, Respiratory Rate: 18, BP: 177/141, Pulse Oximetry: 90, Weight: 72.730 Progress Results/Orders Results/Orders Vital Signs 08/09/25 09:24 Temp 97.6 Pulse 81 Resp 18 B/P (MAP) 177/141 Pulse Ox 90 Departure Referrals: NO PRIMARY CARE PROVIDER (PCP) MARY HARRISONP Aug 09, 2025 09:35
[2025-08-09] MEDS: ibuprofen tablet 400 MG TABLET PO ONE (10:11)
== END 2025-08-09 10:59 | disposition home or self-care (01) ==
LOC: ER 09:08
DX: M79.604 Pain in right leg (principal); M19.90 Unspecified osteoarthritis, unspecified site; Z88.0 Allergy status to penicillin; Z79.899 Other long term (current) drug therapy; Z98.890 Other specified postprocedural states; Z53.21 Procedure and treatment not carried out due to patient leaving prior to being seen by health care provider
CPT/HCPCS: 99281; 99283

== ENCOUNTER 2025-08-09 17:07 | Emergency (ER) | payer MEDICARE, MEDICAID ==
[~2025-08-09] VITALS: Ht 172.7 cm; Wt 73.2 kg
--- NOTE | 2025-08-09 17:55 | Physician Documentation ---
History of Present Illness ~ Chief Complaint: Leg Pain Stated Complaint: LEG PAIN Time Seen by MD: 17:25 Primary Medical Doctor: NO PMD HPI [age] year old on sheltered male who returns to the emergency department requesting resources specifically that of dry clothes and food. Additionally requesting breakthrough pain medicine and Tylenol. Seen earlier twice today in the emergency department. No acute changes in symptomatology. Patient has known chronic pain Tetanus witin 5 years: Yes Medication Reconciliation Allergies: Coded Allergies: Penicillins (Verified Allergy, Unknown, itching, 08/09/25) Scheduled Cefuroxime Axetil (Cefuroxime), 1 TAB PO Q12H Cephalexin*Monohydrate* (Keflex*), 1 CAP PO QID Folic Acid* (Folic Acid*), 1 MG PO DAILY Furosemide (Furosemide), 1 TAB PO DAILY Gabapentin (Gabapentin), 1 CAP PO Q8H Ibuprofen* (Motrin*), 800 MG PO Q8H Lactobacillus Rhamnosus (Culturelle), 1 CAP PO DAILY Lidocaine (Lidoderm), 1 PATCH TOP DAILY Multivitamin with Folic Acid (Thera Tablet), 1 EACH PO Q24H Naproxen (Naproxen), 1 TAB PO Q12H Potassium Chloride (Klor-Con 8), 1 TAB PO DAILY Tamsulosin Hcl* (Flomax*), 1 CAP PO DAILY, (Reported) Thiamine Mononitrate (Vitamin B-1), 1 TAB PO DAILY Scheduled PRN Ibuprofen (Ibu), 1 TAB PO Q4HPRN PRN for pain Miscellaneous Medications Home Med List (No Home Medications), (Reported) Past Medical History Past Medical History: No Pertinent History, Arthritis, Extremity Fracture Past Surgical History: orthopedic surgeries Patient History: Patient reports no known family medical history. Drug Use: none Lives In: Home Occupation: disabled Review of Systems All Other Systems at this time: Reviewed and Negative Constitutional: Reports: see HPI Physical Exam Vital Signs: RN Vital Signs have been reviewed: Yes, Weight: 73.180 General Appearance: alert, WD/WN, no apparent distress Head: normal inspection Legs: other (Neck pain) Skin: normal color Lymphatic: normal inspection Neurologic: oriented x4 Psychiatric: normal mood/affect Progress Results/Orders Results/Orders Completed Orders - BECCA GUSMAN Acetaminophen 325mg Tablet (Tylenol Tabl (08/09/25 17:55) Medications Received in ER Medications (Trade) Dose Ordered Sig/Dejon Route PRN Reason Start Time Stop Time Status Last Admin Dose Admin (Tylenol tablet) 325 mg ONCE ONCE PO 08/09/25 17:55 08/09/25 17:56 DC 08/09/25 18:06 325 MG Medical Decision Making Additional information obtaine: N/A Findings Provided patient clothing resources and food resources. Breakthrough Tylenol 325 mg pain safely discharged from the emergency department. General Diff Dx:Considerations: Include: Other (Psychosocial history is, food and clothing insecurities. Acute on chronic pain) Knee Diff Dx:Considerations: Include: Other Ankle Diff Dx:Considerations: Include: Other Foot Diff Dx:Considerations: Include: Other Toe Diff Dx:Considerations: Include: Other Departure Disposition: 01 HOME / SELF CARE / HOMELESS Impression: Primary Impression: Chronic leg pain Qualified Codes: M79.606 - Pain in leg, unspecified; G89.29 - Other chronic pain Condition: Improved Referrals: NO PRIMARY CARE PROVIDER (PCP) Education Educated: Patient Educated regarding: diagnosis, treatment, prognosis Signature Scribe Signature: . Attestation: . BECCA GUSMAN PAC Aug 09, 2025 17:55
== END 2025-08-09 18:09 | disposition home or self-care (01) ==
LOC: ER 17:07
DX: M79.606 Pain in leg, unspecified (principal); G89.29 Other chronic pain; M54.2 Cervicalgia; M19.90 Unspecified osteoarthritis, unspecified site; Z88.0 Allergy status to penicillin; Z79.899 Other long term (current) drug therapy; Z98.890 Other specified postprocedural states
CPT/HCPCS: 99283

== ENCOUNTER 2025-08-10 08:11 | Emergency (ER) | payer MEDICARE, MEDICAID ==
[~2025-08-10] VITALS: Ht 167.6 cm; Wt 69.9 kg
[2025-08-10 08:19] VITALS: BP 116/92; PULSE 76; RESP 16; TEMP 97.2; O2SAT 98
--- NOTE | 2025-08-10 09:43 | Physician Documentation ---
History of Present Illness ~ Chief Complaint: Leg Pain Stated Complaint: LEG PAIN Time Seen by MD: 09:04 Primary Medical Doctor: NO PMD HPI Pt returns to ED for right leg pain x 10 years. Pain is located between the right ankle and the knee and is exacerbated by the cold. He was seen in the department 3 times yesterday for the same thing. There is no acute symptom changes. Has a known chronic leg pain. Tetanus witin 5 years: Yes Medication Reconciliation Allergies: Coded Allergies: Penicillins (Verified Allergy, Unknown, itching, 08/10/25) Scheduled Cefuroxime Axetil (Cefuroxime), 1 TAB PO Q12H Cephalexin*Monohydrate* (Keflex*), 1 CAP PO QID Folic Acid* (Folic Acid*), 1 MG PO DAILY Furosemide (Furosemide), 1 TAB PO DAILY Gabapentin (Gabapentin), 1 CAP PO Q8H Ibuprofen* (Motrin*), 800 MG PO Q8H Lactobacillus Rhamnosus (Culturelle), 1 CAP PO DAILY Lidocaine (Lidoderm), 1 PATCH TOP DAILY Multivitamin with Folic Acid (Thera Tablet), 1 EACH PO Q24H Naproxen (Naproxen), 1 TAB PO Q12H Potassium Chloride (Klor-Con 8), 1 TAB PO DAILY Tamsulosin Hcl* (Flomax*), 1 CAP PO DAILY, (Reported) Thiamine Mononitrate (Vitamin B-1), 1 TAB PO DAILY Scheduled PRN Ibuprofen (Ibu), 1 TAB PO Q4HPRN PRN for pain Miscellaneous Medications Home Med List (No Home Medications), (Reported) Past Medical History Past Medical History: No Pertinent History, Arthritis, Extremity Fracture Past Surgical History: orthopedic surgeries Patient History: Patient reports no known family medical history. Drug Use: none Lives In: Home Occupation: disabled Review of Systems All Other Systems at this time: Reviewed and Negative Physical Exam Vital Signs: RN Vital Signs have been reviewed: Yes, Temperature: 97.2, Source: Temporal, Heart Rate: 76, Respiratory Rate: 16, BP: 116/92, Pulse Oximetry: 98, Weight: 69.900 Oxygen Flow Rate: 0 Pulse Oximetry Reflects: adequate oxygenation Physical Exam General: Alert, no distress. HEENT: No injection, moist mucous membranes. Neck: Full range of motion. Respiratory: No respiratory distress, equal chest rise and fall. Chest: No accessory muscle use. Cardiovascular: Regular rate and rhythm. Gastrointestinal: Nondistended. Extremities: Normal range of motion, no deformity. Tenderness to palpation of right leg, no edema or erythema seen. Neurologic: Oriented x4. Psychiatric: Normal mood and affect. Skin: Normal color, warm and dry. Progress Results/Orders Results/Orders Vital Signs 08/10/25 08:19 Temp 97.2 Pulse 76 Resp 16 B/P (MAP) 116/92 Pulse Ox 98 O2 Flow Rate 0 Medical Decision Making Additional information obtaine: old records Findings Was seen here 3 times yesterday and was given Tylenol. Has known chronic pain with no acute symptom changes or new injuries. Ordered Tylenol for pain relief. Patient eloped department prior to discharge paperwork and medication administration. General Diff Dx:Considerations: Include: Abrasion, Contusion, Hematoma, Neurovascular injury, Open fracture, Sprain, Other (acute on Chronic pain) Knee Diff Dx:Considerations: Include: Other Ankle Diff Dx:Considerations: Include: Other Foot Diff Dx:Considerations: Include: Other Toe Diff Dx:Considerations: Include: Other Departure Disposition: 07 LEFT AWOL/ELOPED Impression: Primary Impression: Eloped from emergency department Referrals: NO PRIMARY CARE PROVIDER (PCP) Additional Comment Medical Screen Exam This patient recieved a medical screening examination. After reviewing the individual's medical complaints with presenting symptoms and performing an appropriate physical examination, it was determined that no immediate life- threatening emergency medical condition is present. This individual is also not a women having contractions. Signature Scribe Signature: . Attestation: Parts of this note were created using [employer] voice recognition software program. While efforts were made to correct any mistakes made by this voice recognition software program, nonsensical phrases may remain in this note. In addition, there may be errors and syntax, grammar, content and spelling. Scribed for [place] by Treasure Smith NP . 08/10/25 09:42 [facility] [place] Aug 10, 2025 09:42
== END 2025-08-10 09:35 | disposition left against medical advice (07) ==
LOC: ER 08:12
DX: M25.571 Pain in right ankle and joints of right foot (principal); Z88.0 Allergy status to penicillin; Z88.8 Allergy status to other drugs, medicaments and biological substances
CPT/HCPCS: 99282

== ENCOUNTER 2025-08-19 07:08 | Emergency (ER) | payer MEDICARE, MEDICAID ==
[~2025-08-19] VITALS: Ht 167.6 cm; Wt 72.7 kg
[2025-08-19 07:09] VITALS: BP 131/71; PULSE 73; RESP 16; TEMP 98.2; O2SAT 99
--- NOTE | 2025-08-19 07:20 | Physician Documentation ---
History of Present Illness ~ Chief Complaint: Leg Pain Stated Complaint: R LEG PAIN Time Seen by MD: 07:14 Primary Medical Doctor: NO PMD HPI 70-year-old male, well known to this emergency department for regular visits for chronic leg pain, who presents with ongoing chronic leg pain The patient has been seen multiple times in this emergency department in the last several months, for the same leg pain. He generally requests pain medication. Here today, he reports ongoing leg pain. He denies any new or different symptoms. He requests a shot of Toradol, says that is the only thing that works. When asked him if there was anything else that we could do to prevent him from coming here to the emergency department for pain control, he says I am sorry that I am homeless. No fevers, trauma, or other concerns Tetanus witin 5 years: Yes Medication Reconciliation Allergies: Coded Allergies: Penicillins (Verified Allergy, Unknown, itching, 08/10/25) Scheduled Cefuroxime Axetil (Cefuroxime), 1 TAB PO Q12H Cephalexin*Monohydrate* (Keflex*), 1 CAP PO QID Folic Acid* (Folic Acid*), 1 MG PO DAILY Furosemide (Furosemide), 1 TAB PO DAILY Gabapentin (Gabapentin), 1 CAP PO Q8H Ibuprofen* (Motrin*), 800 MG PO Q8H Lactobacillus Rhamnosus (Culturelle), 1 CAP PO DAILY Lidocaine (Lidoderm), 1 PATCH TOP DAILY Multivitamin with Folic Acid (Thera Tablet), 1 EACH PO Q24H Naproxen (Naproxen), 1 TAB PO Q12H Potassium Chloride (Klor-Con 8), 1 TAB PO DAILY Tamsulosin Hcl* (Flomax*), 1 CAP PO DAILY, (Reported) Thiamine Mononitrate (Vitamin B-1), 1 TAB PO DAILY Scheduled PRN Ibuprofen (Ibu), 1 TAB PO Q4HPRN PRN for pain Miscellaneous Medications Home Med List (No Home Medications), (Reported) Past Medical History Past Medical History: No Pertinent History, Arthritis, Extremity Fracture Past Surgical History: orthopedic surgeries Patient History: Patient reports no known family medical history. Drug Use: none Lives In: Home Occupation: disabled Review of Systems Constitutional: Denies: fever Musculoskeletal: Reports: pain Physical Exam Vital Signs: Temperature: 98.2, Source: Oral, Heart Rate: 73, Respiratory Rate: 16, BP: 131/71, Pulse Oximetry: 99, Weight: 72.700 Oxygen Flow Rate: 0 Physical Exam General: This is a disheveled middle-aged man with a blanket, appears similar to when I have seen him in the past here in the emergency department HEENT: Wearing a hat Heart: Regular rate and rhythm, normal-appearing peripheral perfusion to the arms and legs Lungs: normal work of breathing, normal oxygen saturation on room air Extremities: No acute trauma to the legs Neuro: Alert and oriented Psychiatric: Appears tired but is cooperative with exam Progress Results/Orders Results/Orders Orders - BECCA GORDON MD Ketorolac Trometh 15mg/Ml Vial (Toradol (08/19/25 07:20) Vital Signs 08/19/25 07:09 Temp 98.2 Pulse 73 Resp 16 B/P (MAP) 131/71 Pulse Ox 99 O2 Flow Rate 0 Medical Decision Making Additional information obtaine: old records Findings Reviewed recent ER visits General Diff Dx:Considerations: Include: Abrasion Knee Diff Dx:Considerations: Include: Hematoma Ankle Diff Dx:Considerations: Include: DJD Foot Diff Dx:Considerations: Include: Cellulitis Toe Diff Dx:Considerations: Include: Abrasion Assessment The patient presents with ongoing chronic leg pain. No other new or different concerns today. He was given a dose of IM Toradol. He will be discharged Departure Time of Disposition: 07:20 Disposition: 01 HOME / SELF CARE / HOMELESS Impression: Primary Impression: Chronic leg pain Condition: Stable Discharge Instructions: Chronic Pain, Adult Referrals: NO PRIMARY CARE PROVIDER (PCP) Education Educated: Patient Educated regarding: need for follow up Signature Scribe Signature: na Attestation: BECCA Rios MD Aug 19, 2025 07:20
[2025-08-19] MEDS: ketorolac trometh 15mg/ml vial 15 MG/ML ML IM ONE (07:26)
== END 2025-08-19 07:30 | disposition home or self-care (01) ==
LOC: ER 07:09
DX: G89.29 Other chronic pain (principal); M79.604 Pain in right leg; M19.90 Unspecified osteoarthritis, unspecified site; Z88.0 Allergy status to penicillin; Z79.899 Other long term (current) drug therapy
CPT/HCPCS: 96372; 99283; J1885

== ENCOUNTER 2025-08-25 13:54 | Emergency (ER) | payer MEDICARE, MEDICAID ==
[~2025-08-25] VITALS: Ht 167.6 cm; Wt 71.1 kg
[~2025-08-25 13:54] MED LIST changes: -NAPR-56 PO
[2025-08-25 14:15] VITALS: BP 112/53; PULSE 82; RESP 18; TEMP 97.7; O2SAT 100
--- NOTE | 2025-08-25 14:20 | Physician Documentation ---
History of Present Illness ~ Chief Complaint: Hypothermia Stated Complaint: COLD Time Seen by MD: 15:03 Primary Medical Doctor: NO PMD HPI 70-year-old male presents with a complaint of hypothermia secondary to being homeless. Triage his temperature is 97 F. he is also requesting sandwich. Denies any active medical concerns. Hx Tetanus, Diphtheria Vaccina: Yes Medication Reconciliation Allergies: Coded Allergies: Penicillins (Verified Allergy, Unknown, itching, 08/25/25) Scheduled Cefuroxime Axetil (Cefuroxime), 1 TAB PO Q12H Cephalexin*Monohydrate* (Keflex*), 1 CAP PO QID Folic Acid* (Folic Acid*), 1 MG PO DAILY Furosemide (Furosemide), 1 TAB PO DAILY Gabapentin (Gabapentin), 1 CAP PO Q8H Lactobacillus Rhamnosus (Culturelle), 1 CAP PO DAILY Lidocaine (Lidoderm), 1 PATCH TOP DAILY Multivitamin with Folic Acid (Thera Tablet), 1 EACH PO Q24H Potassium Chloride (Klor-Con 8), 1 TAB PO DAILY Tamsulosin Hcl* (Flomax*), 1 CAP PO DAILY, (Reported) Thiamine Mononitrate (Vitamin B-1), 1 TAB PO DAILY Scheduled PRN Ibuprofen (Ibu), 1 TAB PO Q4HPRN PRN for pain Miscellaneous Medications Home Med List (No Home Medications), (Reported) Discontinued Medications Ibuprofen* (Motrin*), 800 MG PO Q8H Discontinued Reason: Auto Discontinued Naproxen (Naproxen), 1 TAB PO Q12H Discontinued Reason: Auto Discontinued Past Medical History Past Medical History: No Pertinent History, Arthritis, Extremity Fracture Past Surgical History: orthopedic surgeries Patient History: Patient reports no known family medical history. Drug Use: none Lives In: Home Occupation: disabled Review of Systems All Other Systems at this time: Reviewed and Negative ROS As stated above in the HPI, otherwise all systems are reviewed and negative. Physical Exam Vital Signs: RN Vital Signs have been reviewed: Yes, Temperature: 97.7, Source: Oral, Heart Rate: 82, Respiratory Rate: 18, BP: 112/53, Pulse Oximetry: 100, Weight: 71.100 Pulse Oximetry Reflects: adequate oxygenation Physical Exam General: Alert, no apparent distress. HEENT: PERRL, EOMI, no injection, moist mucous membranes. Neck: Full range of motion. Respiratory: Lungs clear, no respiratory distress. Chest: No accessory muscle use. Cardiovascular: Regular rate and rhythm, no murmurs. Gastrointestinal: Soft, nontender, nondistended. Bowels sounds present. Extremities: Normal range of motion, no deformity. Neurologic: Oriented x4. Psychiatric: Normal mood and affect. Skin: Normal color, warm and dry. No edema, no ecchymosis. Progress Results/Orders Reviewed/noted all lab results: Yes Results/Orders Vital Signs 08/25/25 14:15 Temp 97.7 Pulse 82 Resp 18 B/P (MAP) 112/53 Pulse Ox 100 Medical Decision Making Additional information obtaine: old records Findings Patient reports that he is cold from being homeless and staying outside. Patient provided with a warm blanket. Patient also requesting a sandwich, sandwich provided. He denies having any other medical concerns that he would like addressed today. Differential Dx:Considerations: Include: Acidosis, Encephalopathy, Frostbite, Sepsis Departure Disposition: HOME / SELF CARE / HOMELESS Impression: Primary Impression: Hypothermia due to cold environment Condition: Stable Discharge Instructions: Preventing Hypothermia Referrals: NO PRIMARY CARE PROVIDER (PCP) Education Educated: Patient Educated regarding: diagnosis, treatment, prognosis, need for follow up Additional Comment Medical Screen Exam This patient recieved a medical screening examination. After reviewing the individual's medical complaints with presenting symptoms and performing an appropriate physical examination, it was determined that no immediate life- threatening emergency medical condition is present. This individual is also not a women having contractions. Signature Scribe Signature: . Attestation: Scribed for [place] by Treasure Smith NP . 08/25/25 17:50 Parts of this note were created using [employer] voice recognition software program. While efforts were made to correct any mistakes made by this voice recognition software program, nonsensical phrases may remain in this note. In addition, there may be errors and syntax, grammar, content and spelling. JOSE TREVIZO NP Aug 25, 2025 14:20 TREASURE [facility] Aug 25, 2025 15:10
== END 2025-08-25 15:20 | disposition home or self-care (01) ==
LOC: ER 13:56
DX: T68.XXXA Hypothermia, initial encounter (principal); M19.90 Unspecified osteoarthritis, unspecified site; Z59.00 Homelessness unspecified; Z88.0 Allergy status to penicillin; Z79.899 Other long term (current) drug therapy; Z98.890 Other specified postprocedural states; X31.XXXA Exposure to excessive natural cold, initial encounter
CPT/HCPCS: 99282

== ENCOUNTER 2025-09-01 09:30 | Emergency (ER) | payer MEDICARE, MEDICAID ==
[~2025-09-01] VITALS: Ht 167.6 cm; Wt 70.4 kg
[~2025-09-01 09:30] MED LIST changes: +NAPR-56 PO
[2025-09-01 09:35] VITALS: BP 130/71; PULSE 71; O2SAT 100
--- NOTE | 2025-09-01 09:41 | Physician Documentation ---
History of Present Illness ~ Stated Complaint: R LEG PAIN Time Seen by MD: 09:32 Primary Medical Doctor: NO PMD Source: patient Mode of Arrival: POV Exam Limitations: no limitations HPI 70-year-old male here with acute on chronic right lower leg pain. He states his leg pain is due to an injury that occurred 20 years ago. He was prescribed gabapentin when he was here last but states he is unable to pick it up at the pharmacy as he was kicked out of the [place] and since he does not have an address any longer as he can not use the [place] as his address he has not been able to get his. He is hoping he can get an injection of Toradol here he states he has not been taking any NSAIDs in his not had a Toradol injection and some time. He denies any history of kidney problems. No new injuries. No chest pain, shortness of breath, edema. Tetanus witin 5 years: Yes Medication Reconciliation Allergies: Coded Allergies: Penicillins (Verified Allergy, Unknown, itching, 08/25/25) Scheduled Cefuroxime Axetil (Cefuroxime), 1 TAB PO Q12H Cephalexin*Monohydrate* (Keflex*), 1 CAP PO QID Folic Acid* (Folic Acid*), 1 MG PO DAILY Furosemide (Furosemide), 1 TAB PO DAILY Gabapentin (Gabapentin), 1 CAP PO Q8H Lactobacillus Rhamnosus (Culturelle), 1 CAP PO DAILY Lidocaine (Lidoderm), 1 PATCH TOP DAILY Multivitamin with Folic Acid (Thera Tablet), 1 EACH PO Q24H Potassium Chloride (Klor-Con 8), 1 TAB PO DAILY Tamsulosin Hcl* (Flomax*), 1 CAP PO DAILY, (Reported) Thiamine Mononitrate (Vitamin B-1), 1 TAB PO DAILY Scheduled PRN Ibuprofen (Ibu), 1 TAB PO Q4HPRN PRN for pain Miscellaneous Medications Home Med List (No Home Medications), (Reported) Discontinued Medications Ibuprofen* (Motrin*), 800 MG PO Q8H Discontinued Reason: Auto Discontinued Past Medical History Past Medical History: No Pertinent History, Arthritis, Extremity Fracture Past Surgical History: orthopedic surgeries Patient History: Patient reports no known family medical history. Drug Use: none Lives In: Home Occupation: disabled Review of Systems All Other Systems at this time: Reviewed and Negative Physical Exam Physical Exam General Appearance: Alert, WD/WN. NAD. HEENT: NCAT, PERRL, EOMI. Neck: Supple, trachea midline. Cardiovascular: RRR. No m/r/g. pedal pulses 2+, no calf ttp, no LE edema. Lungs: CTAB. Breathing unlabored Extremities: Normal inspection. Skin: Warm/dry, normal color Neurological: Alert and oriented x4, normal gait. Psychiatric: Affect congruent with mood. Medical Decision Making Additional information obtaine: old records Findings prior visits General Diff Dx:Considerations: Include: Abrasion, Contusion, Fracture, Hematoma, Laceration, Malunion, Neurovascular injury, Open fracture, Sprain, Ulcer, Other Knee Diff Dx:Considerations: Unlikely: Other Ankle Diff Dx:Considerations: Unlikely: Other Foot Diff Dx:Considerations: Unlikely: Other Toe Diff Dx:Considerations: Unlikely: Other Additional Comment Patient has no evidence for peripheral arterial disease pedal pulses 2+. No evidence for DVT as no calf pain or swelling, skin is normal no evidence for cellulitis or infection. His pain is consistent with a neuropathic type of pain likely from his history of an injury 20 years ago. I did explain that gabapentin would work very well for this and that coming in here for Toradol injections is not an appropriate ongoing treatment plan but I did agree to give him Toradol here today and encouraged him to follow up with the [facility] since he does not have a primary care provider. Departure Time of Disposition: 09:39 Disposition: 01 HOME / SELF CARE / HOMELESS Impression: Primary Impression: Acute pain of right lower extremity Condition: Stable Discharge Instructions: Chronic Pain, Adult Additional Instructions: I know you voice to me that you are not concerned about your kidney function and continuing to come here for Toradol injections however this is something that we would be concerned about if you continue to come here for Toradol injections this is also not an appropriate ongoing treatment plan for your chronic pain. 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 If you experience swelling of your leg, chest pain, shortness of breath, any new concerning symptoms return to the ER. Referrals: NO PRIMARY CARE PROVIDER (PCP) Education Educated: Patient Educated regarding: diagnosis, treatment, need for follow up Signature Scribe Signature: x Attestation: ALISTAIR Emanuel Sep 01, 2025 09:41
[2025-09-01 09:48] VITALS: RESP 16
[2025-09-01] MEDS: ketorolac trometh 30MG/ML vial 30 MG/ML VIAL IM ONE (09:48)
[2025-09-01 09:53] VITALS: TEMP 98.9
== END 2025-09-01 09:55 | disposition home or self-care (01) ==
LOC: ER 09:31
DX: M79.661 Pain in right lower leg (principal); M19.90 Unspecified osteoarthritis, unspecified site; Z88.0 Allergy status to penicillin; Z79.899 Other long term (current) drug therapy; Z98.890 Other specified postprocedural states
CPT/HCPCS: 96372; 99283; J1885

== ENCOUNTER 2025-09-03 08:10 | Emergency (ER) | payer MEDICARE, MEDICAID ==
[~2025-09-03] VITALS: Ht 172.7 cm; Wt 75.0 kg
[~2025-09-03 08:10] MED LIST changes: -IBUP-1984 PO; -NAPR-56 PO
[2025-09-03 08:15] VITALS: BP 145/87; PULSE 68; RESP 18; O2SAT 99
--- NOTE | 2025-09-03 09:40 | Physician Documentation ---
History of Present Illness ~ Chief Complaint: Leg Pain Stated Complaint: R LEG PAIN Time Seen by MD: 09:11 OK to notify your PCP?: Yes Primary Medical Doctor: NO PMD Source: patient Mode of Arrival: POV Exam Limitations: no limitations HPI This is a 70-year-old local homeless individual who comes in complaining of chronic leg pain. The patient was seen yesterday for the same and give him a Toradol shot. He was told that you can not get him with a Toradol shot today in his requesting oral medication. He denies with the new or acute issues. The patient has been to this ER 5 times this month for the same. Tetanus witin 5 years: Yes Medication Reconciliation Allergies: Coded Allergies: Penicillins (Verified Allergy, Unknown, itching, 09/03/25) Scheduled Cefuroxime Axetil (Cefuroxime), 1 TAB PO Q12H Cephalexin*Monohydrate* (Keflex*), 1 CAP PO QID Folic Acid* (Folic Acid*), 1 MG PO DAILY Furosemide (Furosemide), 1 TAB PO DAILY Gabapentin (Gabapentin), 1 CAP PO Q8H Lactobacillus Rhamnosus (Culturelle), 1 CAP PO DAILY Lidocaine (Lidoderm), 1 PATCH TOP DAILY Multivitamin with Folic Acid (Thera Tablet), 1 EACH PO Q24H Potassium Chloride (Klor-Con 8), 1 TAB PO DAILY Tamsulosin Hcl* (Flomax*), 1 CAP PO DAILY, (Reported) Thiamine Mononitrate (Vitamin B-1), 1 TAB PO DAILY Scheduled PRN Ibuprofen (Ibu), 1 TAB PO Q4HPRN PRN for pain Miscellaneous Medications Home Med List (No Home Medications), (Reported) Past Medical History Past Medical History: No Pertinent History, Arthritis, Extremity Fracture Past Surgical History: orthopedic surgeries Patient History: Patient reports no known family medical history. Drug Use: none Lives In: Home Occupation: disabled Physical Exam Vital Signs: Temperature: 98.5, Source: Temporal, Heart Rate: 68, Respiratory Rate: 18, BP: 145/87, Pulse Oximetry: 99, Weight: 75.000 Oxygen Flow Rate: 0 Pulse Oximetry Reflects: adequate oxygenation General Appearance: alert, WD/WN, no apparent distress Legs No obvious trauma. The patient has scabies straight smooth steady unassisted. Progress Results/Orders Results/Orders Orders - FRIEAD SPRINGER Ibuprofen Tablet (Motrin Tablet) (09/03/25 09:35) Vital Signs 09/03/25 08:15 Temp 98.5 Pulse 68 Resp 18 B/P (MAP) 145/87 Pulse Ox 99 O2 Flow Rate 0 Medical Decision Making Additional information obtaine: N/A Findings I gave the patient 600 mg p.o. ibuprofen and discharge him back to the care of himself. General Diff Dx:Considerations: Include: Abrasion, Contusion, Fracture, Hematoma, Laceration, Malunion, Neurovascular injury, Open fracture, Sprain, Ulcer, Other Knee Diff Dx:Considerations: Include: Abrasion, Arthritis, Contusion, DJD, Fracture-femur, Fracture-fibula, Fracture-patella, Fracture-tibia, Gout, Hematoma, Laceration, Meniscus injury, Neurovascular injury, Open fracture, Rheumatoid arthritis, Septic, Sprain, Sprain-MCL, Sprain-LCL, Sprain-ACL, Sp rain-PCL, Other Ankle Diff Dx:Considerations: Include: Abrasion, Arthritis, Contusion, DJD, Fracture-metatarsal, Fracture-fibula, Fracture-tarsal, Fracture-tibia, Gout, Hematoma, Laceration, Malunion, Neurovascular injury, Nonunion, Open fracture, Osteomyelitis, Rheumatoid arthritis, Sprain, Septic, Ulcer, Other Foot Diff Dx:Considerations: Include: Abrasion, Arthritis, Cellulitis, Contusion, Dislocation, DJD, Fracture-metatarsal, Fracture-phalynx, Fracture-tarsal, Gout, Hematoma, Ingrown toenail, Laceration, Malunion, Neurovascular injury, Open fracture, Paronychia, Puncture, Rheumatoid, Sprain, Septic, Subungual hematoma, Ulcer, Other Toe Diff Dx:Considerations: Include: Abrasion, Cellulitis, Contusion, Dislocation, Felon, Fracture, Hematoma, Laceration, Neurovascular injury, Open fracture, Paronychia, Subungual hematoma, Other Additional Comment Homelessness. Chronic leg pain. Malingering Departure Disposition: 01 HOME / SELF CARE / HOMELESS Impression: Primary Impression: Homeless single person Condition: Stable Discharge Instructions: Medical Screening Exam Additional Instructions: [facility] up [facility] with the primary care physician Referrals: NO PRIMARY CARE PROVIDER (PCP) DIEGO BAKER Signature Scribe Signature: No scribe Attestation: The note accurately reflects work and decisions made by .Frieda WELSH 09/03/25 09:40 FRIEDA SPRINGER Sep 03, 2025 09:40
[2025-09-03 09:56] VITALS: TEMP 98.5
== END 2025-09-03 09:57 | disposition home or self-care (01) ==
LOC: ER 08:11
DX: G89.29 Other chronic pain (principal); M79.604 Pain in right leg; M19.90 Unspecified osteoarthritis, unspecified site; Z88.0 Allergy status to penicillin; Z59.00 Homelessness unspecified; Z79.899 Other long term (current) drug therapy; Z98.890 Other specified postprocedural states
CPT/HCPCS: 99283

== ENCOUNTER 2025-09-04 08:25 | Emergency (ER) | payer MEDICARE, MEDICAID ==
[~2025-09-04] VITALS: Ht 170.2 cm; Wt 72.0 kg
[2025-09-04 08:32] VITALS: BP 151/88; PULSE 72; O2SAT 97
[2025-09-04] MEDS ORDERED: ketorolac trometh 30MG/ML vial 30 MG/ML VIAL IV ONE (09:10)
--- NOTE | 2025-09-04 09:14 | Physician Documentation ---
History of Present Illness ~ Chief Complaint: Leg Pain Stated Complaint: LEG PAIN Time Seen by MD: 08:49 Primary Medical Doctor: NO PMD HPI 70-year-old male well known to the ED presents today with a complaint of right lower extremity pain times several years denies any acute injuries requesting a Toradol shot. Tetanus witin 5 years: Yes Medication Reconciliation Allergies: Coded Allergies: Penicillins (Verified Allergy, Unknown, itching, 09/04/25) Scheduled Cefuroxime Axetil (Cefuroxime), 1 TAB PO Q12H Cephalexin*Monohydrate* (Keflex*), 1 CAP PO QID Folic Acid* (Folic Acid*), 1 MG PO DAILY Furosemide (Furosemide), 1 TAB PO DAILY Gabapentin (Gabapentin), 1 CAP PO Q8H Lactobacillus Rhamnosus (Culturelle), 1 CAP PO DAILY Lidocaine (Lidoderm), 1 PATCH TOP DAILY Multivitamin with Folic Acid (Thera Tablet), 1 EACH PO Q24H Potassium Chloride (Klor-Con 8), 1 TAB PO DAILY Tamsulosin Hcl* (Flomax*), 1 CAP PO DAILY, (Reported) Thiamine Mononitrate (Vitamin B-1), 1 TAB PO DAILY Scheduled PRN Ibuprofen (Ibu), 1 TAB PO Q4HPRN PRN for pain Miscellaneous Medications Home Med List (No Home Medications), (Reported) Past Medical History Past Medical History: No Pertinent History, Arthritis, Extremity Fracture Past Surgical History: orthopedic surgeries Patient History: Patient reports no known family medical history. Drug Use: none Lives In: Home Occupation: disabled Review of Systems All Other Systems at this time: Reviewed and Negative Physical Exam Vital Signs: Temperature: 97.0, Source: Temporal, Heart Rate: 72, Respiratory Rate: 16, BP: 151/88, Pulse Oximetry: 97, Weight: 72.000 Oxygen Flow Rate: 0 Physical Exam General: Alert, no apparent distress. HEENT: PERRL, EOMI, no injection, moist mucous membranes. Neck: Full range of motion. Respiratory: Lungs clear, no respiratory distress. Chest: No accessory muscle use. Cardiovascular: Regular rate and rhythm, no murmurs. Gastrointestinal: Soft, nontender, nondistended. Bowels sounds present. Extremities: Normal range of motion, no deformity. Neurologic: Oriented x4. Psychiatric: Normal mood and affect. Skin: Normal color, warm and dry. No edema, no ecchymosis. 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 Trometh 15mg/Ml Vial (Toradol (09/04/25 09:25) Vital Signs 09/04/25 09/04/25 09/04/25 08:32 09:34 09:35 Temp 97.0 97.0 Pulse 72 Resp 16 16 B/P (MAP) 151/88 Pulse Ox 97 O2 Flow Rate 0 Medical Decision Making Additional information obtaine: old records Findings 60-year-old does not present with any acute injury is symptoms chronic in nature denies any kidney issues I did provide him with a Toradol shot as requested I do not see any reason to pursue any further imaging as he does not present with any red flag symptoms and what he needs to do his follow up with outpatient care requested referral for physical there General Diff Dx:Considerations: Unlikely: Abrasion, Contusion, Fracture, Hematoma, Laceration, Malunion, Neurovascular injury, Open fracture, Sprain, Ulcer, Other Knee Diff Dx:Considerations: Include: Abrasion, Arthritis, Contusion, DJD, Fracture-femur, Fracture-fibula, Fracture-patella, Fracture-tibia, Gout, Hematoma, Laceration, Meniscus injury, Neurovascular injury, Open fracture, Rheumatoid arthritis, Septic, Sprain, Sprain-MCL, Sprain-LCL, Sprain-ACL, Sprain-PCL, Other Ankle Diff Dx:Considerations: Include: Abrasion, Arthritis, Contusion, DJD, Fracture-metatarsal, Fracture-fibula, Fracture-tarsal, Fracture-tibia, Gout, Hematoma, Laceration, Malunion, Neurovascular injury, Nonunion, Open fracture, Osteomyelitis, Rheumatoid arthritis, Sprain, Septic, Ulcer, Other Foot Diff Dx:Considerations: Include: Abrasion, Arthritis, Cellulitis, Contusion, Dislocation, DJD, Fracture-metatarsal, Fracture-phalynx, Fracture- tarsal, Gout, Hematoma, Ingrown toenail, Laceration, Malunion, Neurovascular injury, Open fracture, Paronychia, Puncture, Rheumatoid, Sprain, Septic, Sub ungual hematoma, Ulcer, Other Toe Diff Dx:Considerations: Include: Abrasion, Cellulitis, Contusion, Disloc ation, Felon, Fracture, Hematoma, Laceration, Neurovascular injury, Open fracture, Paronychia, Subungual hematoma, Other Departure Disposition: 01 HOME / SELF CARE / HOMELESS Impression: Primary Impression: Sciatica Condition: Improved Discharge Instructions: Muscle Strain, [id number] Referrals: NO PRIMARY CARE PROVIDER (PCP) Signature Scribe Signature: g Attestation: Scribed for Parth Trevizo Mailer by Parth Smith NP . 09/04/25 18:26 PARTH TREVIZO NP Sep 04, 2025 09:13
[2025-09-04 09:34] VITALS: RESP 16
[2025-09-04] MEDS: ketorolac trometh 15mg/ml vial 15 MG/ML ML IV ONE (09:34)
[2025-09-04 09:35] VITALS: TEMP 97
== END 2025-09-04 09:38 | disposition home or self-care (01) ==
LOC: ER 08:25
DX: M54.31 Sciatica, right side (principal); M19.90 Unspecified osteoarthritis, unspecified site; Z88.0 Allergy status to penicillin; Z79.899 Other long term (current) drug therapy; Z98.890 Other specified postprocedural states
CPT/HCPCS: 96374; 99283; J1885

== ENCOUNTER 2025-09-08 07:58 | Emergency (ER) | payer MEDICARE, MEDICAID ==
[~2025-09-08] VITALS: Ht 167.6 cm; Wt 72.0 kg
[2025-09-08 08:24] VITALS: BP 120/64; PULSE 68; RESP 16; TEMP 97; O2SAT 98
== END 2025-09-08 09:34 | disposition left against medical advice (07) ==
LOC: ER 07:58
DX: M79.604 Pain in right leg (principal); Z53.21 Procedure and treatment not carried out due to patient leaving prior to being seen by health care provider; Z88.0 Allergy status to penicillin
CPT/HCPCS: 99281

== ENCOUNTER 2025-09-09 07:30 | Emergency (ER) | payer MEDICARE, MEDICAID ==
[~2025-09-09] VITALS: Ht 167.6 cm; Wt 82.0 kg
[2025-09-09] MEDS: HYDROcodone/acetaminophen 5mg/325mg tablet PO ONE (09:18)
--- NOTE | 2025-09-09 09:25 | Physician Documentation ---
History of Present Illness ~ Chief Complaint: Leg Pain Stated Complaint: R LEG PAIN Time Seen by MD: 08:52 Primary Medical Doctor: NO PMD Source: patient Mode of Arrival: Ambulatory Exam Limitations: no limitations HPI 70-year-old with chronic leg pain requesting medication. no changes or acute concerns Tetanus witin 5 years: Yes Medication Reconciliation Allergies: Coded Allergies: Penicillins (Verified Allergy, Unknown, itching, 09/08/25) Scheduled Cefuroxime Axetil (Cefuroxime), 1 TAB PO Q12H Cephalexin*Monohydrate* (Keflex*), 1 CAP PO QID Folic Acid* (Folic Acid*), 1 MG PO DAILY Furosemide (Furosemide), 1 TAB PO DAILY Gabapentin (Gabapentin), 1 CAP PO Q8H Lactobacillus Rhamnosus (Culturelle), 1 CAP PO DAILY Lidocaine (Lidoderm), 1 PATCH TOP DAILY Multivitamin with Folic Acid (Thera Tablet), 1 EACH PO Q24H Potassium Chloride (Klor-Con 8), 1 TAB PO DAILY Tamsulosin Hcl* (Flomax*), 1 CAP PO DAILY, (Reported) Thiamine Mononitrate (Vitamin B-1), 1 TAB PO DAILY Scheduled PRN Ibuprofen (Ibu), 1 TAB PO Q4HPRN PRN for pain Miscellaneous Medications Home Med List (No Home Medications), (Reported) Past Medical History Past Medical History: No Pertinent History, Arthritis, Extremity Fracture Past Surgical History: orthopedic surgeries Patient History: Patient reports no known family medical history. Drug Use: none Lives In: Home Occupation: disabled Review of Systems All Other Systems at this time: Reviewed and Negative Physical Exam Vital Signs: RN Vital Signs have been reviewed: Yes, Temperature: 98.0, Source: Temporal, Heart Rate: 68, Respiratory Rate: 16, BP: 132/70, Pulse Oximetry: 94, Weight: 82.000 Oxygen Flow Rate: 0 Physical Exam General: Alert, no apparent distress. HEENT: moist mucous membranes. Neck: Full range of motion. Respiratory: No respiratory distress speaking in full sentences Chest: No accessory muscle use. Cardiovascular: Appears well perfused Neurologic: Oriented x4. Psychiatric: Normal mood and affect. Skin: Normal color, warm and dry. No edema, no ecchymosis. Progress Results/Orders Results/Orders Completed Orders - BEA SNOW NP Hydrocodone/Apap 5/325mg Tab ([place] 5/32 (09/09/25 09:10) Vital Signs 09/09/25 09/09/25 09/09/25 07:52 09:18 09:35 Temp 98.0 98.0 Pulse 68 69 Resp 16 16 17 B/P (MAP) 132/70 139/70 Pulse Ox 94 99 O2 Flow Rate 0 Medical Decision Making Additional information obtaine: old records Findings Patient requesting medication, Toradol or [place] for leg pain was not yesterday no falls or changes General Diff Dx:Considerations: Unlikely: Abrasion, Contusion, Fracture, Hematoma, Laceration, Malunion, Neurovascular injury, Open fracture, Sprain, Ulcer, Other Knee Diff Dx:Considerations: Include: Other Ankle Diff Dx:Considerations: Unlikely: Abrasion, Arthritis, Contusion, DJD, Fracture-metatarsal, Fracture-fibula, Fracture-tarsal, Fracture-tibia, Gout, Hematoma, Laceration, Malunion, Neurovascular injury, Nonunion, Open fracture, Osteomyelitis, Rheumatoid arthritis, Sprain, Septic, Ulcer, Other Foot Diff Dx:Considerations: Unlikely: Abrasion, Arthritis, Cellulitis, Contusion, Dislocation, DJD, Fracture-metatarsal, Fracture-phalynx, Fracture- tarsal, Gout, Hematoma, Ingrown toenail, Laceration, Malunion, Neurovascular injury, Open fracture, Paronychia, Puncture, Rheumatoid, Sprain, Septic, Subungual hematoma, Ulcer, Other Toe Diff Dx:Considerations: Unlikely: Abrasion, Cellulitis, Contusion, Dislocation, Felon, Fracture, Hematoma, Laceration, Neurovascular injury, Open fracture, Paronychia, Subungual hematoma, Other Departure Time of Disposition: 09:24 Disposition: 01 HOME / SELF CARE / HOMELESS Impression: Primary Impression: Chronic leg pain Discharge Instructions: Sciatica, RICE Therapy for Routine Care of Injuries, [id number] Additional Instructions: Follow up with primary care urgent care or [facility] Referrals: NO PRIMARY CARE PROVIDER (PCP) Education Educated: Patient Educated regarding: diagnosis, treatment, need for follow up Signature Scribe Signature: No scribe Attestation: The note accurately reflects work and decisions made by me.Bea LYNCH 09/09/25 09:25 BEA SNOW NP Sep 09, 2025 09:25
[2025-09-09 09:35] VITALS: BP 139/70; PULSE 69; RESP 17; TEMP 98; O2SAT 99
== END 2025-09-09 09:35 | disposition home or self-care (01) ==
LOC: ER 07:31
DX: G89.29 Other chronic pain (principal); M79.604 Pain in right leg; M19.90 Unspecified osteoarthritis, unspecified site; Z88.0 Allergy status to penicillin; Z79.899 Other long term (current) drug therapy; Z98.890 Other specified postprocedural states
CPT/HCPCS: 99283

== ENCOUNTER 2025-09-10 06:18 | Emergency (ER) | payer MEDICARE, MEDICAID ==
[~2025-09-10] VITALS: Ht 167.6 cm; Wt 79.5 kg
[2025-09-10 06:34] VITALS: BP 132/86; PULSE 82; RESP 18; O2SAT 100
--- NOTE | 2025-09-10 09:23 | Physician Documentation ---
History of Present Illness ~ Chief Complaint: Leg Pain Stated Complaint: RIGHT LEG DISCOMFORT Time Seen by MD: 09:21 Primary Medical Doctor: NO PMD HPI This is a 70-year-old male with a history of chronic right leg pain who presents requesting a Toradol injection for chronic right chronic leg pain. Patient reports no other acute symptoms or concerns. Tetanus witin 5 years: Yes Medication Reconciliation Allergies: Coded Allergies: Penicillins (Verified Allergy, Unknown, itching, 09/10/25) Scheduled Cefuroxime Axetil (Cefuroxime), 1 TAB PO Q12H Cephalexin*Monohydrate* (Keflex*), 1 CAP PO QID Folic Acid* (Folic Acid*), 1 MG PO DAILY Furosemide (Furosemide), 1 TAB PO DAILY Gabapentin (Gabapentin), 1 CAP PO Q8H Lactobacillus Rhamnosus (Culturelle), 1 CAP PO DAILY Lidocaine (Lidoderm), 1 PATCH TOP DAILY Multivitamin with Folic Acid (Thera Tablet), 1 EACH PO Q24H Potassium Chloride (Klor-Con 8), 1 TAB PO DAILY Tamsulosin Hcl* (Flomax*), 1 CAP PO DAILY, (Reported) Thiamine Mononitrate (Vitamin B-1), 1 TAB PO DAILY Scheduled PRN Ibuprofen (Ibu), 1 TAB PO Q4HPRN PRN for pain Miscellaneous Medications Home Med List (No Home Medications), (Reported) Past Medical History Past Medical History: No Pertinent History, Arthritis, Extremity Fracture Past Surgical History: orthopedic surgeries Patient History: Patient reports no known family medical history. Drug Use: none Lives In: Home Occupation: disabled Review of Systems ROS As stated above in the HPI, otherwise all systems are reviewed and negative. Physical Exam Vital Signs: Temperature: 97.2, Source: Temporal, Heart Rate: 82, Respiratory Rate: 18, BP: 132/86, Pulse Oximetry: 100, Weight: 79.550 Oxygen Flow Rate: 0 Physical Exam VITALS: Reviewed and as above. GENERAL: Alert, nontoxic appearing, no apparent distress. 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 Patient is otherwise well- appearing and appropriate for outpatient follow up and provided careful return to care precautions. General Diff Dx:Considerations: Include: Abrasion, Laceration, Malunion, Neurovascular injury, Open fracture, Sprain, Other (Cellulitis, DVT) Knee Diff Dx:Considerations: Include: Septic Ankle Diff Dx:Considerations: Include: Abrasion, Arthritis, Contusion, Fracture-metatarsal, Fracture-fibula, Fracture-tarsal, Fracture-tibia, Gout, Hematoma, Laceration, Neurovascular injury, Open fracture, Osteomyelitis, Rheumatoid arthritis, Sprain, Septic Foot Diff Dx:Considerations: Unlikely: Abrasion, Arthritis, Cellulitis, Contusion, Dislocation, DJD, Fracture-metatarsal, Fracture-phalynx, Fracture-tar leno, Gout, Hematoma, Ingrown toenail, Laceration, Malunion, Neurovascular injury, Open fracture, Paronychia, Puncture, Rheumatoid, Sprain, Septic, Subungual hematoma, Ulcer, Other Toe Diff Dx:Considerations: Unlikely: Abrasion, Cellulitis, Contusion, Dislocation, Felon, Fracture, Hematoma, Laceration, Neurovascular injury, Open fracture, Paronychia, Subungual hematoma, Other Departure Time of Disposition: 09:36 Disposition: 01 HOME / SELF CARE / HOMELESS Impression: Primary Impression: Chronic pain of right lower extremity Condition: Improved Discharge Instructions: RICE Therapy for Routine Care of Injuries, [id number] Additional Instructions: Please follow up with [facility] or your primary care provider for further management of your chronic pain. Please follow up with your primary care provider in the next few days. Please return to the emergency department for any new or worsening concerning symptoms. Referrals: NO PRIMARY CARE PROVIDER (PCP) Education Educated: Patient Educated regarding: diagnosis, treatment, prognosis, need for follow up Signature Scribe Signature: No scribe Attestation: The note accurately reflects work and decisions made by me.CRIS Walker 09/10/25 20:24 EJ BARNETT Sep 10, 2025 09:23
[2025-09-10] MEDS: ketorolac trometh 15mg/ml vial 15 MG/ML ML IM ONE (09:45)
[2025-09-10 09:51] VITALS: TEMP 97.2
== END 2025-09-10 09:53 | disposition home or self-care (01) ==
LOC: ER 06:19
DX: G89.29 Other chronic pain (principal); M79.604 Pain in right leg; M19.90 Unspecified osteoarthritis, unspecified site; Z88.0 Allergy status to penicillin; Z79.899 Other long term (current) drug therapy; Z98.890 Other specified postprocedural states
CPT/HCPCS: 96372; 99283; J1885

== ENCOUNTER 2025-09-11 21:47 | Emergency (ER) | payer MEDICARE, MEDICAID ==
[~2025-09-11] VITALS: Ht 167.6 cm; Wt 74.5 kg
--- NOTE | 2025-09-12 00:33 | Physician Documentation ---
History of Present Illness ~ Chief Complaint: Leg Pain Stated Complaint: LEG PAIN Time Seen by MD: 00:30 Primary Medical Doctor: NO PMD HPI Patient presents to the emergency room for management of his chronic leg pain. He was seen here earlier today and received naproxen. No change of symptoms Tetanus witin 5 years: Yes Medication Reconciliation Allergies: Coded Allergies: Penicillins (Verified Allergy, Unknown, itching, 09/11/25) Scheduled Cefuroxime Axetil (Cefuroxime), 1 TAB PO Q12H Cephalexin*Monohydrate* (Keflex*), 1 CAP PO QID Folic Acid* (Folic Acid*), 1 MG PO DAILY Furosemide (Furosemide), 1 TAB PO DAILY Gabapentin (Gabapentin), 1 CAP PO Q8H Lactobacillus Rhamnosus (Culturelle), 1 CAP PO DAILY Lidocaine (Lidoderm), 1 PATCH TOP DAILY Multivitamin with Folic Acid (Thera Tablet), 1 EACH PO Q24H Potassium Chloride (Klor-Con 8), 1 TAB PO DAILY Tamsulosin Hcl* (Flomax*), 1 CAP PO DAILY, (Reported) Thiamine Mononitrate (Vitamin B-1), 1 TAB PO DAILY Scheduled PRN Ibuprofen (Ibu), 1 TAB PO Q4HPRN PRN for pain Miscellaneous Medications Home Med List (No Home Medications), (Reported) Past Medical History Past Medical History: No Pertinent History, Arthritis, Extremity Fracture Past Surgical History: orthopedic surgeries Patient History: Patient reports no known family medical history. Drug Use: none Lives In: Home Occupation: disabled Review of Systems ROS All review of systems negative except as per HPI Physical Exam Vital Signs: Temperature: 98.6, Source: Oral, Heart Rate: 78, Respiratory Rate: 18, BP: 169/89, Pulse Oximetry: 99, Weight: 74.500 Oxygen Flow Rate: 0 Physical Exam General: Patient is awake, alert, oriented x4 in no acute distress Head: Normocephalic and atraumatic. Eyes: Conjunctival normal. EOMI. PERRL. ENT: Mucous membranes moist. Neck: Supple, trachea is midline. Chest: Clear to auscultation bilaterally without rales, rhonchi, or wheezes. There is no accessory muscle use or retractions. Cardiac: RRR without murmurs, gallops, or rubs. Neuro: Cranial nerves II-XII grossly intact. No focal neuro deficits. Antalgic gait Progress Results/Orders Results/Orders Vital Signs 09/11/25 22:16 Temp 98.6 Pulse 78 Resp 18 B/P (MAP) 169/89 Pulse Ox 99 O2 Flow Rate 0 Medical Decision Making Additional information obtaine: old records Findings Patient presents to the emergency room unusual fashion for chronic leg pain. I do not feel emergent labs or imaging is necessary. General Diff Dx:Considerations: Include: Abrasion, Contusion, Fracture, Hematoma, Laceration, Malunion, Neurovascular injury, Open fracture, Sprain, Ulcer, Other Knee Diff Dx:Considerations: Include: Abrasion, Arthritis, Contusion, DJD, Fracture-femur, Fracture-fibula, Fracture-patella, Fracture-tibia, Gout, Hematoma, Laceration, Meniscus injury, Neurovascular injury, Open fracture, Rheumatoid arthritis, Septic, Sprain, Sprain-MCL, Sprain-LCL, Sprain-ACL, Sprain-PCL, Other Ankle Diff Dx:Considerations: Include: Abrasion, Arthritis, Contusion, DJD, Fracture-metatarsal, Fracture-fibula, Fracture-tarsal, Fracture-tibia, Gout, Hematoma, Laceration, Malunion, Neurovascular injury, Nonunion, Open fracture, Osteomyelitis, Rheumatoid arthritis, Sprain, Septic, Ulcer, Other Foot Diff Dx:Considerations: Include: Abrasion, Arthritis, Cellulitis, Contusion, Dislocation, DJD, Fracture-metatarsal, Fracture-phalynx, Fracture- tarsal, Gout, Hematoma, Ingrown toenail, Laceration, Malunion, Neurovascular injury, Open fracture, Paronychia, Puncture, Rheumatoid, Sprain, Septic, Subungual hematoma, Ulcer, Other Toe Diff Dx:Considerations: Include: Abrasion, Cellulitis, Contusion, Dislocation, Felon, Fracture, Hematoma, Laceration, Neurovascular injury, Open fracture, Paronychia, Subungual hematoma, Other Departure Disposition: 01 HOME / SELF CARE / HOMELESS Impression: Primary Impression: Chronic leg pain Condition: Stable Discharge Instructions: RICE Therapy for Routine Care of Injuries, [id number] Referrals: NO PRIMARY CARE PROVIDER (PCP) Signature Scribe Signature: No scribe Attestation: The note accurately reflects work and decisions made by me.Russ Jeong MD 09/12/25 00:32 RUSS JEONG MD Sep 12, 2025 00:33
[2025-09-12 00:51] VITALS: BP 151/64; PULSE 68; RESP 18; TEMP 98.1; O2SAT 98
== END 2025-09-12 00:58 | disposition home or self-care (01) ==
LOC: ER 21:48
DX: G89.29 Other chronic pain (principal); M79.606 Pain in leg, unspecified; M19.90 Unspecified osteoarthritis, unspecified site; Z88.0 Allergy status to penicillin; Z79.899 Other long term (current) drug therapy; Z98.890 Other specified postprocedural states
CPT/HCPCS: 99283